=== PATIENT | male | born 1950 | race Two or more races ===

== ENCOUNTER 2020-01-19 14:25 | Inpatient (IN) | payer MEDICARE, MEDICAID ==
[~2020-01-19] VITALS: Ht 175.3 cm; Wt 69.9 kg
[~2020-01-19 14:25] MED LIST: AMOXICILLI250 MG/5 M ORAL; ASPIR 8181 MG ORAL; ATIVAN1 MG ORAL; COLACE100 MG GT; GLUCOPHAGE850 MG ORAL; GLUCOTROL5 MG ORAL; KEPPRA500 MG ORAL; MIRALAX17 G2 ORAL; MULTIVITAMINS1 EAC8 ORAL; NAMENDA XR28 MG GT; NITROSTAT0.4 M1 SL; PROTONIX40 MG ORAL; RESTORIL15 MG ORAL; TERAZOSIN HCL1 MG GT; TRADJENTA5 MG PO; TYLENOL325 MG GT; ZESTRIL10 MG GT; ZOFRAN8 MG GT
[2020-01-19] MEDS ORDERED: PROSCAR5 MG GT (14:36)
[2020-01-19] MEDS ORDERED: HEPARIN SO5000 UNIT2 SUBQ (14:36)
[2020-01-19] MEDS ORDERED: Piperacillin/Tazobactam 3.375 GM in NS 110 ML IVPB ONE (14:45)
[2020-01-19] MEDS ORDERED: Vancomycin 1 GM in NS 275 ML IVPB ONE (14:45)
--- NOTE | 2020-01-19 14:59 | NUR ---
ED Nurse Note: patient brought in [facility] from [facility] c/o cough and congestion x1 week. per ems, confirmed pna cxr done yesterday. patient received in bed; mask applied. upper and lower extremity contractures noted. suprabupic catheter noted; patent and draining well to gravity. gtube noted; flushed, patent and clamped. patient awake and oriented x0; aphasic; lacks purposeful movement; open eyes spontaneously. patient in gown; all safety measures met.
[2020-01-19 15:00] VITALS: BP 100/65
[2020-01-19] MEDS ORDERED: HYDRALAZINE HCL50 MG GT (15:00)
[2020-01-19] MEDS ORDERED: LEVEMIR FL100 UNIT/1 SUBQ (15:00)
[2020-01-19] MEDS ORDERED: KEPPRA100 MG/1 M GT (15:00)
--- NOTE | 2020-01-19 15:00 | NUR ---
ED Nurse Note: iv access established. blood, initial lactic, blood cultures, flu covid 19 and mrsa vre cre swabs collected; sent down to lab. 2nd iv established left upper arm 20g; initiated abx as prescribed. urine collected via hardin; sent down to lab. hardin inserted prior to arrival; patent and draining well to gravity. Addendum: 01/19/20 at 1841 by [facility] ED Nurse Note: iv access established. blood, initial lactic, blood cultures, flu covid 19 and mrsa vre cre swabs collected; sent down to lab. 2nd iv established left upper arm 20g; initiated abx as prescribed. urine collected via suprapubic catheter; sent down to lab. suprapubic inserted prior to arrival; patent and draining well to gravity.
--- NOTE | 2020-01-19 15:05 | NUR ---
ED Nurse Note: imaging at bedside for cxr. droplet precautions observed; pt in isolated room.
[2020-01-19] MEDS ORDERED: JANUVIA50 MG GT (15:07)
[2020-01-19] MEDS ORDERED: FLOMAX0.4 MG GT (15:07)
[2020-01-19] MEDS ORDERED: METOPROLOL TART25 MG GT (15:07)
[2020-01-19] MEDS ORDERED: MIRALAX17 G2 GT (15:07)
--- NOTE | 2020-01-19 15:08 | Emergency Room Report ---
History of Present Illness General Chief Complaint: Upper Respiratory Illness Source: Medical Record Present Illness HPI 69-year-old male history of dementia, seizure disorder, pneumonia presents from custodial facility due to pneumonia. Patient had a chest x-ray yesterday showing right lower lobe pneumonia. Recently treated for the same. No reported fever. Patient unable to provide any history due to baseline altered mental status. Allergies: Coded Allergies: No Known Allergies (Unverified , 04/08/16) COVID-19 Screening Contact w/high risk pt: No Recent Travel to affected area: No Experienced COVID-19 symptoms?: Yes COVID-19 symptoms experienced: Shortness of Breath, Cough, Runny Nose Patient History Reviewed Nursing Documentation: PMH: Agreed; PSxH: Agreed Nursing Documentation-PMH Hx Cardiac Problems: Yes Hx Hypertension: Yes Hx Diabetes: Yes Hx Cancer: No Hx Gastrointestinal Problems: No Hx Neurological Problems: Yes Hx Dementia: Yes Hx Seizures: Yes Hx Epilepsy: Yes Hx Concentration Difficulty: Yes Review of Systems All Other Systems: limited - History limited due to patient's baseline altered mental status Physical Exam Vital Signs Date Time Temp Pulse Resp B/P (MAP) Pulse Ox O2 Delivery O2 Flow Rate FiO2 01/19/20 14:26 98.8 86 20 100/65 (77) 99 Nasal Cannula 2.0 Sp02 EP Interpretation: reviewed, normal General Appearance: no apparent distress, Chronically Ill Head: normocephalic, atraumatic Eyes: bilateral eye PERRL, bilateral eye EOMI ENT: hearing grossly normal, moist mucus membranes Neck: full range of motion, supple Respiratory: lungs clear, normal breath sounds, no rhonchi, no respiratory distress, no retraction, no wheezing Cardiovascular #1: normal peripheral pulses, regular rate, rhythm, no murmur Gastrointestinal: non tender, soft, non-distended, no guarding Neurologic: alert, other - Patient at reported baseline mental status with lower extremity contractures. Does move upper extremities bilaterally, patient not oriented. Skin: normal color, warm/dry Medical Decision Making Diagnostic Impression: Primary Impression: Pneumonia ER Course MDM: Patient presented from custodial facility due to right lower lobe pneumonia. differential diagnosis: Pneumonia, viral syndrome, aspiration, coronavirus infection Clinical course Patient placed on stretcher. On metal mover. After initial history and physical I ordered labs, blood cultures, IV antibiotics, coronavirus and flu testing. Patient given broad-spectrum antibiotics. Due to patient's status living in a convalescent home with cough and shortness of breath and concern for right lower lobe pneumonia will admit to the hospital for further treatment and observation. Laboratory Tests Test 01/19/20 15:00 White Blood Count 8.6 K/UL (4.8-10.8) Red Blood Count 3.36 M/UL (4.70-6.10) L Hemoglobin 10.2 G/DL (14.2-18.0) L Hematocrit 29.5 % (42.0-52.0) L Mean Corpuscular Volume 88 FL (80-99) Mean Corpuscular Hemoglobin 30.3 PG (27.0-31.0) Mean Corpuscular Hemoglobin Concent 34.4 G/DL (32.0-36.0) Red Cell Distribution Width 14.4 % (11.6-14.8) Platelet Count 200 K/UL (150-450) Mean Platelet Volume 9.5 FL (6.5-10.1) Neutrophils (%) (Auto) 67.2 % (45.0-75.0) Lymphocytes (%) (Auto) 21.8 % (20.0-45.0) Monocytes (%) (Auto) 8.3 % (1.0-10.0) Eosinophils (%) (Auto) 1.7 % (0.0-3.0) Basophils (%) (Auto) 1.1 % (0.0-2.0) Sodium Level 132 MMOL/L (136-145) L Potassium Level 4.7 MMOL/L (3.5-5.1) Chloride Level 98 MMOL/L (98-107) Carbon Dioxide Level > 45 MMOL/L (21-32) *H Blood Urea Nitrogen 40 mg/dL (7-18) H Creatinine 0.8 MG/DL (0.55-1.30) Estimated Glomerular Filtration Rate > 60 mL/min (>60) Glucose Level 112 MG/DL (74-106) H Lactic Acid Level 1.10 mmol/L (0.4-2.0) Calcium Level 9.7 MG/DL (8.5-10.1) Total Bilirubin 0.3 MG/DL (0.2-1.0) Aspartate Amino Transferase (AST) 40 U/L (15-37) H Alanine Aminotransferase (ALT) 65 U/L (12-78) Alkaline Phosphatase 165 U/L (46-116) H Total Creatine Kinase 127 U/L (26-308) Creatine Kinase MB 2.6 NG/ML (0.0-3.6) Creatine Kinase MB Relative Index 2.0 Troponin I 0.000 ng/mL (0.000-0.056) Total Protein 8.7 G/DL (6.4-8.2) H Albumin 3.2 G/DL (3.4-5.0) L Globulin 5.5 g/dL Albumin/Globulin Ratio 0.6 (1.0-2.7) L Urine Legionella Antigen Pending Mycoplasma pneumoniae IgM Ab Titer Pending Microbiology Date/Time Source Procedure Growth Status 01/19/20 15:00 Nasal Nares - Final Complete 01/19/20 15:00 Nasal Nares - Final Complete EKG Diagnostic Results EP Interpretation: Yes Rate: normal Rhythm: NSR ST Segments: no acute changes Last Vital Signs Date Time Temp Pulse Resp B/P (MAP) Pulse Ox O2 Delivery O2 Flow Rate FiO2 01/19/20 14:26 98.8 86 20 100/65 (77) 99 Nasal Cannula 2.0 Status: unchanged Disposition: ADMITTED INPATIENT Condition: Serious Valdemar Farrar M.D. Jan 19, 2020 15:08
--- NOTE | 2020-01-19 15:36 | Diagnostic Imaging Report ---
Indication: Shortness of breath Technique: One view of the chest Comparison: none Findings: Nodular and reticular interstitial opacities are seen at the right lung base. No dense consolidation. The remainder of the lungs and pleural spaces are clear. There is a surgical clip in the aortopulmonary window Impression: Nodular and reticular right basilar opacities. Nonspecific, could indicate acute inflammation versus chronic postinflammatory changes, among many other possibilities.
[2020-01-19 15:46] LABS: BASOPHILS % (AUTO) 1.1 % (0.0-2.0); EOSINOPHILS % (AUTO) 1.7 % (0.0-3.0); HEMATOCRIT 29.5 % (42.0-52.0); HEMOGLOBIN 10.2 G/DL (14.2-18.0); LYMPHOCYTES % (AUTO) 21.8 % (20.0-45.0); MEAN CORPUSCULAR VOLUME 88 FL (80-99); MONOCYTES % (AUTO) 8.3 % (1.0-10.0); NEUTROPHILS % (AUTO) 67.2 % (45.0-75.0); PLATELET COUNT 200 K/UL (150-450); RED BLOOD COUNT 3.36 M/UL (4.70-6.10); RED CELL DISTRIBUTION WIDTH 14.4 % (11.6-14.8); WHITE BLOOD COUNT 8.6 K/UL (4.8-10.8)
[2020-01-19 17:15] LABS: ALANINE AMINOTRANSFERASE 65 U/L (12-78); ALBUMIN 3.2 G/DL (3.4-5.0); ALBUMIN/GLOBULIN RATIO 0.6 (1.0-2.7); ALKALINE PHOSPHATASE 165 U/L (46-116); ASPARTATE AMINO TRANSFERASE 40 U/L (15-37); BILIRUBIN,TOTAL 0.3 MG/DL (0.2-1.0); BLOOD UREA NITROGEN 40 mg/dL (7-18); CALCIUM 9.7 MG/DL (8.5-10.1); CHLORIDE 98 MMOL/L (98-107); CKMB 2.6 NG/ML (0.0-3.6); CREATINE KINASE 127 U/L (26-308); CREATININE 0.8 MG/DL (0.55-1.30); POTASSIUM 4.7 MMOL/L (3.5-5.1); SODIUM 132 MMOL/L (136-145)
--- NOTE | 2020-01-19 17:20 | NUR ---
ED Nurse Note: pt presented with bowel movement. provided perineal care; anchored suprapubic catheter; changed linens. repositioned patient for comfort. patient presents with sacral and left heel pressure wound; wound photos taken and uploaded. pt presents with no acute distress. will continue to monitor.
[2020-01-19 17:22] LABS: CARBON DIOXIDE > 45 MMOL/L (21-32)
[2020-01-19 19:30] VITALS: BP 103/62
--- NOTE | 2020-01-19 19:30 | NUR ---
ED Nurse Note: patient sleeping in bed with no acute distress. continues to open eyes spontaneously without purposeful movement; retracts to light pain. repositioned for comfort. belongings list completed.
--- NOTE | 2020-01-19 19:54 | NUR ---
ED Nurse Note: REPORT GIVEN TO CORBY MEJÍA. PATIENT TO BE ADMITTED TO SDU 241-1 UNDER THE CARE OF SAGAR KLEIN.
--- NOTE | 2020-01-19 19:56 | NUR ---
ED Nurse Note: NOTIFIED RT OF SPUTUM ORDER; WILL BE DONE ONCE PATIENT IS TRANSFERRED TO UNIT. ENDORSED SPUTUM COLLECTION TO ALFONZO TAVAREZ.
[2020-01-19] MEDS ORDERED: cefTRIAXone 1 GM in D5W 55 ML IV SCH (20:00)
[2020-01-19] MEDS ORDERED: Azithromycin 500 MG in D5W 275 ML IV SCH (20:00)
--- NOTE | 2020-01-19 20:10 | NUR ---
NURSE NOTES: Received report from CORBY Anne.
--- NOTE | 2020-01-19 20:15 | NUR ---
NURSE NOTES: No room is unavailable at this time. Waiting for the rooms discharged occupant to be picked up by ambulance and for room to be cleaned.
[2020-01-19] MEDS: NovoLOG Insulin Flexpen SUBQ SCH (21:00)
--- NOTE | 2020-01-19 22:42 | NUR ---
ED Nurse Note: PT PRESENTED WITH BOWEL MOVEMENT; SOFT BROWN STOOL. CHANGED LINENS AND REPOSITIONED FOR COMFORT. PATIENT ATTACHED TO MONITOR; VSS. SPO2 98% ON ROOM AIR. SAFETY MEASURES MET. WILL CONTINUE TO MONITOR.
[2020-01-19 22:49] VITALS: BP 114/71
--- NOTE | 2020-01-19 23:15 | Consultation ---
DATE OF CONSULTATION: 01/19/2020 PULMONARY CONSULTATION HISTORY OF PRESENT ILLNESS: This is a 69-year-old male with a history of dementia, seizure disorder who was [facility] in [facility] with pneumonia. The patient apparently underwent a chest x-ray recently which showed right lung pneumonia. He has received treatment with no benefit. The patient was seen and worked up in the emergency room, found to have hemoglobin 10.2 and a bicarb of more than 45. Sodium 132. Nares swab was initially found to be negative with influenza A and B. The patient was found to be hypoxic with O2 saturation 99% on 2 liters of oxygen. Currently, the patient is seen in the emergency room. PAST MEDICAL HISTORY: Notable for hypertension, diabetes mellitus, previous CVA, dementia, seizure disorder. SOCIAL HISTORY: retirement resident. PHYSICAL EXAMINATION: GENERAL: Reveals a 69-year-old male. VITAL SIGNS: Blood pressure 100/60, heart rate 84, respiratory rate 20, afebrile, O2 saturation 99% on 2 L of oxygen. HEENT: Unremarkable. CHEST: Decreased breath sounds bilaterally with normal heart sounds. ABDOMEN: Soft. LABORATORY DATA: Laboratory testing as discussed above. Imaging studies unremarkable except for right lung infiltrate. IMPRESSION: 1. Right lung pneumonia. 2. retirement resident. DISCUSSION: The patient at this time needed to be admitted. I see documentation that the ER physician may discharge the patient. We will initiate antibiotics once the patient is admitted. Miguel Roche M.D. DR: Arnold JOB#: [id number] CC:
[2020-01-20] VITALS (7 sets, daily range): BP systolic 123–153; BP diastolic 68–108
--- NOTE | 2020-01-20 00:50 | NUR ---
ED Nurse Note: patient sleeping in bed with no acute distress. respirations even and unlabored. vss.
--- NOTE | 2020-01-20 01:30 | NUR ---
TRANSFER TO FLOOR: Patient transferred to SDU 205-2 as ordered, per SAGAR KLEIN. Report given to ALFONZO TAVAREZ. PATIENT STABLE FOR TRANSFER. PATIENT TRANSPORTED TO FLOOR VIA GURNEY WITH CEM AND RN. BELONGINGS LIST AND ADMISSION PACKET SENT WITH PATIENT. DROPLET PRECAUTIONS OBSERVED DURING TRANSPORT.
[2020-01-20] MEDS: Piperacillin/Tazobactam 3.375 GM in NS 110 ML IVPB SCH ×5 (02:33→21:40)
[2020-01-20] MEDS: NS w/KCl 20mEq 1000ml 1,000 ML IV SCH ×3 (02:34→19:45)
[2020-01-20] MEDS: Vancomycin 1gm/D5W 275ml IVPB SCH ×4 (03:00→15:58)
--- NOTE | 2020-01-20 04:00 | NUR ---
NURSE NOTES: Vancomycin not given because medication was not obtained until after scheduled dose. When medication was obtained it was too close to next antibiotic.
[2020-01-20] MEDS: Heparin 5000 units/ml inj SUBQ SCH ×3 (04:50→21:45)
[2020-01-20 05:54] LABS: BASOPHILS % (AUTO) 0.5 % (0.0-2.0); EOSINOPHILS % (AUTO) 0.1 % (0.0-3.0); HEMATOCRIT 32.9 % (42.0-52.0); HEMOGLOBIN 11.4 G/DL (14.2-18.0); LYMPHOCYTES % (AUTO) 9.6 % (20.0-45.0); MEAN CORPUSCULAR VOLUME 85 FL (80-99); NEUTROPHILS % (AUTO) 80.8 % (45.0-75.0); PLATELET COUNT 208 K/UL (150-450); RED BLOOD COUNT 3.84 M/UL (4.70-6.10); RED CELL DISTRIBUTION WIDTH 12.9 % (11.6-14.8); WHITE BLOOD COUNT 11.9 K/UL (4.8-10.8)
[2020-01-20 06:10] LABS: ANION GAP 12 mmol/L (5-15); BLOOD UREA NITROGEN 46 mg/dL (7-18); CALCIUM 10.2 MG/DL (8.5-10.1); CARBON DIOXIDE 25 MMOL/L (21-32); CHLORIDE 100 MMOL/L (98-107); CREATININE 0.9 MG/DL (0.55-1.30); POTASSIUM 4.1 MMOL/L (3.5-5.1); SODIUM 137 MMOL/L (136-145)
[2020-01-20] MEDS: NovoLOG Insulin Flexpen SUBQ SCH ×3 (06:30→18:56)
--- NOTE | 2020-01-20 07:30 | NUR ---
NURSE NOTES: Received report from Ky Khan RN. Pt awake, eyes open and tracking when someone looks and non verbal. With Oxygen via NC @ 2lpm. With Left hand 18 gauge and Left upper arm 20 gauge IV lines intact and infusing well, asymptomatic. With PEG tube intact. Bed siderails are up and stable. Head of bed elevated for comfortable position. continue to monitor pt.
--- NOTE | 2020-01-20 08:49 | Consultation ---
Consult Note Consult Note HPI: 69yo gentleman with PMH below presents from [facility] for cough and congestion for one week. Pt unable to provide history. Pt with healed pressure ulcers. Suprapubic catheter that was changed 12/28. G tube. Pt is currently not coughing. Diarrhea witnessed by nurse ROS: per above PMH: Psych disorder COPD BPH DM Seizure disorder dementia HTN G tube suprapubic catheter SHx: h/o cigarette use. NH resident. FHX: noncontributory VS: reviewed Gen: NAD HEENT: anicteric sclera CV: RRR. no rubs or gallop Resp: coarse. congested. regular rhtyhm. equal chest rise Abd: G tube. soft. suprapubic catheter site without drainage Ext: no LE edema. no joint deformity MSK: sarcopenia Neuro: eyes open. does not follow commands. does not answer questions. Labs: reviewed Imaging: reviewed Assessment: Afebrile No leukocytosis Mild transaminitis PNA r/o probable COVID flu swab neg CXR: Nodular and reticular right basilar opacities. Nonspecific, could indicate acute inflammation versus chronic postinflammatory changes, among many other possibilities. r/o bacteremia BCx: P Multiple pressure injuries but healing, no evidence of infection QTc 435 Psych disorder COPD BPH DM Seizure disorder dementia HTN GERD anemia G tube suprapubic catheter, SP exchange 12/28 Plan: zosyn and vanc #1 SP ceftriaxone and azithromycin #1 f/u urine legionella f/u mycoplasma IgM f/u COVID test f/u sputum cx f/u MRSA screen f/u BCx COVID isolation monitor temp and CBC monitor resp status will not obtain urine specimen at this time. suprapubic samples usually are contaminated. Bridget Hurley RN, MD Jan 20, 2020 08:49
--- NOTE | 2020-01-20 10:52 | Pulmonology Progress Note ---
Assessment/Plan Assessment/Plan IMPRESSION: 1. Right lung pneumonia. 2. [facility] resident. DISCUSSION: Continue abx O2 Pulmonary hygiene Will follow Miguel Roche M.D. Subjective Interval Events: None new Constitutional: Reports: no symptoms HEENT: Repors: no symptoms Respiratory: Reports: no symptoms Cardiovascular: Reports: no symptoms Allergies: Coded Allergies: No Known Allergies (Unverified , 04/08/16) Objective Last 24 Hour Vital Signs Date Time Temp Pulse Resp B/P (MAP) Pulse Ox O2 Delivery O2 Flow Rate FiO2 01/20/20 08:00 Nasal Cannula 2.0 01/20/20 08:00 98.2 90 16 149/107 (121) 100 01/20/20 07:50 Room Air 2.0 01/20/20 04:00 98.1 109 16 138/77 (97) 100 01/20/20 03:32 115 01/20/20 02:02 110 01/20/20 01:45 98.1 116 20 123/93 (103) 93 01/20/20 01:30 98.8 79 14 127/108 97 Room Air 2.0 01/20/20 00:50 98.8 79 14 127/108 97 Room Air 01/19/20 22:49 98.8 84 14 114/71 98 Room Air 01/19/20 19:30 98.8 83 22 103/62 98 Nasal Cannula 2.0 01/19/20 15:00 98.8 86 20 100/65 99 Nasal Cannula 2.0 01/19/20 15:00 86 20 Nasal Cannula 2.0 01/19/20 14:26 98.8 86 20 100/65 (77) 99 Nasal Cannula 2.0 Intake and Output 01/19/20 01/20/20 19:00 07:00 Intake Total 110 ml Output Total 350 ml Balance -240 ml Intake IV Total 110 ml Output Urine Total 350 ml # Voids 1 # Bowel Movements 1 General Appearance: no acute distress HEENT: normocephalic Respiratory/Chest: chest wall non-tender, lungs clear Cardiovascular: normal peripheral pulses Abdomen: normal bowel sounds Microbiology Date/Time Source Procedure Growth Status 01/19/20 15:00 Nasal Nares - Final Complete 01/19/20 15:00 Nasal Nares - Final Complete 01/20/20 09:10 Rectum Received Laboratory Tests 01/19/20 15:00: White Blood Count 8.6, Red Blood Count 3.36L, Hemoglobin 10.2L, Hematocrit 29.5L , Mean Corpuscular Volume 88, Mean Corpuscular Hemoglobin 30.3, Mean Corpuscular Hemoglobin Concent 34.4, Red Cell Distribution Width 14.4, Platelet Count 200, Mean Platelet Volume 9.5, Neutrophils (%) (Auto) 67.2, Lymphocytes (% ) (Auto) 21.8, Monocytes (%) (Auto) 8.3, Eosinophils (%) (Auto) 1.7, Basophils ( %) (Auto) 1.1, Sodium Level 132L, Potassium Level 4.7, Chloride Level 98, Carbon Dioxide Level > 45*H, Blood Urea Nitrogen 40H, Creatinine 0.8, Estimat Glomerular Filtration Rate > 60, Glucose Level 112H, Lactic Acid Level 1.10, Calcium Level 9.7, Total Bilirubin 0.3, Aspartate Amino Transf (AST/SGOT) 40H, Alanine Aminotransferase (ALT/SGPT) 65, Alkaline Phosphatase 165H, Total Creatine Kinase 127, Creatine Kinase MB 2.6, Creatine Kinase MB Relative Index 2.0, Troponin I 0.000, Total Protein 8.7H, Albumin 3.2L, Globulin 5.5, Albumin/ Globulin Ratio 0.6L, Urine Legionella Antigen [Pending], Mycoplasma pneumoniae IgM Ab Titer [Pending] 01/20/20 04:49: White Blood Count 11.9H, Red Blood Count 3.84L, Hemoglobin 11.4L, Hematocrit 32.9L, Mean Corpuscular Volume 85, Mean Corpuscular Hemoglobin 29.7, Mean Corpuscular Hemoglobin Concent 34.8, Red Cell Distribution Width 12.9, Platelet Count 208, Mean Platelet Volume 7.3, Neutrophils (%) (Auto) 80.8H, Lymphocytes ( %) (Auto) 9.6L, Monocytes (%) (Auto) 9.0, Eosinophils (%) (Auto) 0.1, Basophils (%) (Auto) 0.5, Sodium Level 137, Potassium Level 4.1, Chloride Level 100, Carbon Dioxide Level 25, Blood Urea Nitrogen 46H, Creatinine 0.9, Estimat Glomerular Filtration Rate > 60, Glucose Level 154H, Calcium Level 10.2H, Anion Gap 12 Current Medications Medications (Trade) Dose Ordered Sig/Angel Route PRN Reason Start Time Stop Time Status Last Admin Dose Admin Acetaminophen (Tylenol) 650 mg Q4H PRN ORAL Mild Pain (Pain Scale 1-3) 01/19/20 19:00 02/18/20 18:59 Dextrose (Dextrose 50%) 25 ml Q30M PRN IV Hypoglycemia 01/19/20 19:00 04/18/20 18:59 Dextrose (Dextrose 50%) 50 ml Q30M PRN IV Hypoglycemia 01/19/20 19:00 04/18/20 18:59 Heparin Sodium (Porcine) (Heparin 5000 units/ml) 5,000 units EVERY 12 HOURS SUBQ 01/19/20 21:00 03/04/20 20:59 01/20/20 09:13 Insulin Aspart (NovoLOG) BEFORE MEALS AND HS SUBQ 01/19/20 21:00 04/18/20 20:59 Piperacillin Sod/ Tazobactam Sod 3.375 gm/Sodium Chloride 110 ml @ 220 mls/hr Q8HR IVPB 01/19/20 22:00 01/26/20 21:59 01/20/20 05:48 Potassium Chloride/Sodium Chloride 1,000 ml @ 50 mls/hr Q20H IV 01/19/20 21:00 02/18/20 20:59 01/20/20 02:34 Vancomycin HCl (Vanco rx to dose) 1 ea DAILY PRN MISC Per rx protocol 01/19/20 18:30 02/18/20 18:29 Vancomycin HCl 1 gm/Dextrose 275 ml @ 183.708 mls/hr Q12H IVPB 01/20/20 03:00 01/25/20 02:59 Miguel Roche MD Jan 20, 2020 10:52
--- NOTE | 2020-01-20 13:45 | NUR ---
CASE MANAGEMENT:REVIEW 69 YR OLD MALE BIBA FROM [facility] IN [place] CC: COUGH AND CONGESTION. CXR(+) PNEUMONIA SI: PNEUMONIA. R/O COVID 19 98.7 86 20 100/65 99% ON 2L/NC CO2>45 IS: IV VANCOMYCIN IV ZOSYN CHEST XRAY BLOOD CX INFLUENZA A&B COVID 19 : TO TELEMETRY UNIT DCP: FROM [facility]
--- NOTE | 2020-01-20 15:02 | NUR ---
NURSE NOTES:WOUND CARE NOTES:Pt presented on admission with contractures, multiple areas of hyperpigmentation from previous pressure injuries. Hyperpigmentation noted to Sacrum, R and L trochanteric, dorso/lateral R foot and distal/lateral R foot and R heel. Both heels are soft but blanchable. Scrotum and perineum are erythematous but dry . An area of erythema noted to medial upper R thigh. Tx.Plan:Apply Moisture Barrier Paste to sacrum. Cover with Optifoam drsg. Change every 3 days and prn. Apply Moisture Barrier Paste to scrotum, Bilat groin and both ischial tuberosities with each incontinence care. Apply Cavilon Skin Barrier to R and L trochanteric areas,Both heels and lateral aspects of both feet. Cover each area with Optifoam drsg.Change every 7 days and prn. Apply Cavilon Skin Barrier to both heels. Cover each heel with Optifoam drsg. Change every 7 days and prn. Reposition at least every 2hours or as tolerated. Place pillow between knees. Off-load heels with pillow. APM/Paty Mattress overlay.
--- NOTE | 2020-01-20 15:54 | Consultation ---
History of Present Illness General Date patient seen: Jan 20, 2020 Chief Complaint: Upper Respiratory Illness Present Illness HPI This is a 69-year-old male with multi-medical comorbidities who is a half-way resident care dependent admitted for pneumonia. Patient with history of seizures, noted contractures, decubitus ulcers, abnormal labs. Upon admission placed on covid precautions. Given above surgery called to evaluate and assist with care. Patient seen, patient evaluated, chart reviewed. Patient unable to provide history or comply with examination. Labs reviewed. Imaging reviewed Allergies: Coded Allergies: No Known Allergies (Unverified , 04/08/16) Medication History Scheduled Amoxicillin* (Amoxicillin*), 250 MG ORAL EVERY 8 HOURS, (Reported) Aspirin* (Aspir 81*), 81 MG ORAL DAILY, (Reported) Docusate Sodium* (Colace*), 100 MG GT TWICE A DAY, (Reported) Finasteride* (Proscar*), 5 MG GT DAILY, (Reported) Glipizide* (Glucotrol*), 2.5 MG ORAL ACBREAKFAST, (Reported) Heparin Sod (Porcine) (Heparin Sodium*), 5,000 UNITS SUBQ EVERY 12 HOURS, ( Reported) Hydralazine Hcl* (Hydralazine Hcl*), 50 MG GT EVERY 8 HOURS, (Reported) Insulin Detemir (Levemir Flexpen), 8 SUBQ DAILY, (Reported) Levetiracetam (Keppra), 500 MG ORAL Q12HR, (Reported) Levetiracetam (Keppra), 500 MG GT Q12HR, (Reported) Linagliptin (Tradjenta), 5 MG PO DAILY, (Reported) Lisinopril* (Zestril*), 10 MG GT DAILY, (Reported) Lorazepam* (Ativan*), 1 MG ORAL Q6HR, (Reported) Memantine Hcl (Namenda Xr), 10 MG GT BEDTIME, (Reported) Metformin Hcl* (Glucophage*), 1,000 MG ORAL TWICE A DAY, (Reported) Metoprolol Tartrate* (Metoprolol Tartrate*), 12.5 MG GT EVERY 12 HOURS, ( Reported) Multivitamin With Minerals (Multivitamins With Minerals*), 1 TAB ORAL DAILY, ( Reported) Pantoprazole* (Protonix*), 40 MG ORAL BEFORE BREAKFAST, (Reported) Polyethylene Glycol 3350* (Miralax*), 17 GM ORAL DAILY, (Reported) Polyethylene Glycol 3350* (Miralax*), 17 GM GT DAILY, (Reported) Sitagliptin (Januvia), 50 MG GT DAILY, (Reported) Tamsulosin HCl (Flomax), 0.4 MG GT DAILY, (Reported) Terazosin Hcl* (Hytrin*), 1 MG GT BEDTIME, (Reported) Scheduled PRN Acetaminophen (Tylenol), 650 MG GT Q4HR PRN for Fever/Headache/Mild Pain, ( Reported) Nitroglycerin (Nitrostat), 0.4 MG SL Q5M X3 DOSES PRN for AD, (Reported) Ondansetron Hcl* (Zofran*), 4 MG GT Q6H PRN for Nausea & Vomiting, (Reported) Temazepam* (Restoril*), 15 MG ORAL BEDTIME PRN for Insomnia, (Reported) Patient History Limited by: medical condition History Provided By: Medical Record, PMD Healthcare decision maker N Resuscitation status Full Code Advanced Directive on File Past Medical/Surgical History Past Medical/Surgical History: (1) Mandibular pain (2) Cellulitis (3) COPD (chronic obstructive pulmonary disease) (4) Anemia (5) Diabetes (6) Encephalopathy (7) HTN (hypertension) (8) BPH (benign prostatic hyperplasia) (9) Pneumonia Review of Systems ROS Narrative unable to obtain given medical condition Physical Exam General Appearance: no apparent distress Lines, tubes and drains: peripheral HEENT: mucous membranes moist Neck: normal inspection Respiratory/Chest: no respiratory distress, no accessory muscle use, decreased breath sounds Cardiovascular/Chest: normal rate Abdomen: soft, no organomegaly, no mass, other Extremities: normal inspection Skin Exam: warm/dry Neurologic: unresponsiveness Last 24 Hour Vital Signs Date Time Temp Pulse Resp B/P (MAP) Pulse Ox O2 Delivery O2 Flow Rate FiO2 01/20/20 12:00 Nasal Cannula 2.0 01/20/20 12:00 99.7 102 16 147/85 (105) 100 01/20/20 11:51 103 01/20/20 08:00 Nasal Cannula 2.0 01/20/20 08:00 98.2 90 16 149/107 (121) 100 01/20/20 07:50 Room Air 2.0 4/10/20 07:43 105 01/20/20 04:00 98.1 109 16 138/77 (97) 100 01/20/20 03:32 115 01/20/20 02:02 110 01/20/20 01:45 98.1 116 20 123/93 (103) 93 01/20/20 01:30 98.8 79 14 127/108 97 Room Air 2.0 01/20/20 00:50 98.8 79 14 127/108 97 Room Air 01/19/20 22:49 98.8 84 14 114/71 98 Room Air 01/19/20 19:30 98.8 83 22 103/62 98 Nasal Cannula 2.0 Intake and Output 01/19/20 01/20/20 19:00 07:00 Intake Total 110 ml Output Total 350 ml Balance -240 ml Intake IV Total 110 ml Output Urine Total 350 ml # Voids 1 # Bowel Movements 1 Laboratory Tests Test 01/20/20 04:49 White Blood Count 11.9 K/UL (4.8-10.8) H Red Blood Count 3.84 M/UL (4.70-6.10) L Hemoglobin 11.4 G/DL (14.2-18.0) L Hematocrit 32.9 % (42.0-52.0) L Mean Corpuscular Volume 85 FL (80-99) Mean Corpuscular Hemoglobin 29.7 PG (27.0-31.0) Mean Corpuscular Hemoglobin Concent 34.8 G/DL (32.0-36.0) Red Cell Distribution Width 12.9 % (11.6-14.8) Platelet Count 208 K/UL (150-450) Mean Platelet Volume 7.3 FL (6.5-10.1) Neutrophils (%) (Auto) 80.8 % (45.0-75.0) H Lymphocytes (%) (Auto) 9.6 % (20.0-45.0) L Monocytes (%) (Auto) 9.0 % (1.0-10.0) Eosinophils (%) (Auto) 0.1 % (0.0-3.0) Basophils (%) (Auto) 0.5 % (0.0-2.0) Sodium Level 137 MMOL/L (136-145) Potassium Level 4.1 MMOL/L (3.5-5.1) Chloride Level 100 MMOL/L (98-107) Carbon Dioxide Level 25 MMOL/L (21-32) Anion Gap 12 mmol/L (5-15) Blood Urea Nitrogen 46 mg/dL (7-18) H Creatinine 0.9 MG/DL (0.55-1.30) Estimat Glomerular Filtration Rate > 60 mL/min (>60) Glucose Level 154 MG/DL (74-106) H Calcium Level 10.2 MG/DL (8.5-10.1) H Microbiology Date/Time Source Procedure Growth Status 01/20/20 09:10 Rectum Received Height (Feet): 5 Height (Inches): 9.00 Weight (Pounds): 160 Medications Current Medications Medications (Trade) Dose Ordered Sig/Angel Route PRN Reason Start Time Stop Time Status Last Admin Dose Admin Acetaminophen (Tylenol) 650 mg Q4H PRN ORAL Mild Pain (Pain Scale 1-3) 01/19/20 19:00 02/18/20 18:59 Dextrose (Dextrose 50%) 25 ml Q30M PRN IV Hypoglycemia 01/19/20 19:00 04/18/20 18:59 Dextrose (Dextrose 50%) 50 ml Q30M PRN IV Hypoglycemia 01/19/20 19:00 04/18/20 18:59 Heparin Sodium (Porcine) (Heparin 5000 units/ml) 5,000 units EVERY 12 HOURS SUBQ 01/19/20 21:00 03/04/20 20:59 01/20/20 09:13 Insulin Aspart (NovoLOG) EVERY 6 HOURS SUBQ 01/20/20 12:00 04/18/20 20:59 01/20/20 12:55 Memantine (Namenda) 5 mg BID ORAL 01/20/20 18:00 02/19/20 17:59 Piperacillin Sod/ Tazobactam Sod 3.375 gm/Sodium Chloride 110 ml @ 220 mls/hr Q8HR IVPB 01/19/20 22:00 01/26/20 21:59 01/20/20 13:46 Potassium Chloride/Sodium Chloride 1,000 ml @ 50 mls/hr Q20H IV 01/19/20 21:00 02/18/20 20:59 01/20/20 02:34 Vancomycin HCl (Vanco rx to dose) 1 ea DAILY PRN MISC Per rx protocol 01/19/20 18:30 02/18/20 18:29 Vancomycin HCl 1 gm/Dextrose 275 ml @ 183.708 mls/hr Q12H IVPB 01/20/20 03:00 01/25/20 02:59 Assessment/Plan Problem List: (1) Decubitus skin ulcer Assessment & Plan: Patient presented on admission with contractures, multiple areas of hyperpigmentation from previous pressure injuries. Hyperpigmentation noted to Sacrum, R and L trochanteric, dorso/lateral R foot and distal/lateral R foot and R heel. Both heels are soft but blanchable. Scrotum and perineum are erythematous but dry An area of erythema noted to medial upper R thigh. Tx.Plan: Apply Moisture Barrier Paste to sacrum. Cover with Optifoam drsg. Change every 3 days and prn. Apply Moisture Barrier Paste to scrotum, Bilat groin and both ischial tuberosities with each incontinence care. Apply Cavilon Skin Barrier to R and L trochanteric areas,Both heels and lateral aspects of both feet. Cover each area with Optifoam drsg.Change every 7 days and prn. Apply Cavilon Skin Barrier to both heels. Cover each heel with Optifoam drsg. Change every 7 days and prn. Reposition at least every 2hours or as tolerated. Place pillow between knees. Off-load heels with pillow. APM/Paty Mattress overlay. Nutritional optimization ICD Codes: L89.90 - Pressure ulcer of unspecified site, unspecified stage SNOMED: 943186495 (2) Malnutrition ICD Codes: E46 - Unspecified protein-calorie malnutrition SNOMED: 58826634 (3) Pneumonia ICD Codes: J18.9 - Pneumonia, unspecified organism SNOMED: 344654460 (4) COPD (chronic obstructive pulmonary disease) ICD Codes: J44.9 - Chronic obstructive pulmonary disease, unspecified SNOMED: 56219855 (5) Anemia ICD Codes: D64.9 - Anemia, unspecified SNOMED: 416292175 (6) Cellulitis Assessment & Plan: perirectal cellulitis from incontinence incontinence associated dermatitis care instructions given will monitor ICD Codes: L03.90 - Cellulitis, unspecified SNOMED: 884753524 (7) Diabetes ICD Codes: E11.9 - Type 2 diabetes mellitus without complications SNOMED: 73765312 (8) Encephalopathy ICD Codes: G93.40 - Encephalopathy, unspecified SNOMED: 02114143, 719592437 (9) HTN (hypertension) ICD Codes: I10 - Essential (primary) hypertension SNOMED: 02168332 (10) BPH (benign prostatic hyperplasia) ICD Codes: N40.0 - Enlarged prostate without lower urinary tract symptoms SNOMED: 108946318, 131783232 (11) Mandibular pain ICD Codes: R68.84 - Jaw pain SNOMED: 805536387 Christiano Castelan Jan 20, 2020 15:54
--- NOTE | 2020-01-20 16:15 | History and Physical Report ---
DATE OF ADMISSION: 01/19/2020 DATE AND TIME SEEN: 01/20/2020, approximate time is 8 a.m. CONSULTANTS: 1. Scooter Tang M.D. 2. Miguel Roche M.D. 3. Christiano Castelan M.D. 4. Letty Mcgowan M.D. CHIEF COMPLAINT: Cough, congestion, right basilar pneumonia, sacral decubitus. 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 Currently O2, NC, sleeping in bed, not talking much. PAST MEDICAL HISTORY: Includes cough, congestion, right basilar opacity, sacral decubitus, pneumonia, sepsis, hypertension, diabetes, seizure, anemia. PAST SURGICAL HISTORY: G-tube. MEDICATIONS: Vancomycin, Zosyn, potassium, heparin, insulin, azithromycin, ceftriaxone. ALLERGIES: Denies. SOCIAL HISTORY: Unable to obtain secondary to patient's condition. PHYSICAL EXAMINATION: GENERAL: Confused in bed, O2 NC, not talking much. HEENT: Normocephalic, atraumatic. NECK: Trachea midline. CARDIOVASCULAR: No peripheral edema. PULMONARY: O2, NC. Breathing comfortably. ABDOMEN: No apparent wounds noted. EXTREMITIES: No cyanosis or clubbing. LABORATORY AND DIAGNOSTIC DATA: Labs at this time show white count 11.9, hemoglobin and hematocrit 11/32, otherwise CBC is normal. BMP shows BUN 46, glucose 154, albumin 3.2. ASSESSMENT: 1. Cough. 2. Congestion. 3. Right basilar pneumonia. 4. Sacral decubitus. 5. Sepsis. 6. COVID pending. 7. Malnutrition. 8. Diabetes. 9. Hypertension. 10. Seizure. 11. Anemia. PLAN: 1. O2, pulmonary treatment. 2. Antibiotic per Infectious Disease. 3. Blood pressure, blood sugar, pain control. 4. PT, OT, dietary follow up. 5. Wound care. Tone Dietz D.O. DR: NILESH JOB#: [id number] CC:
--- NOTE | 2020-01-20 16:31 | NUR ---
NURSE NOTES: Spoke with Dr. Roche via telephone. Telemetry status order obtained. Charge nurse/Cata made aware.
[2020-01-20] MEDS ORDERED: Memantine 5 MG TAB ORAL SCH (18:00)
--- NOTE | 2020-01-20 19:30 | NUR ---
NURSE NOTES: RECEIVED REPORT FROM CORBY BURGESS. PATIENT ASLEEP IN BED, AROUSABLE. A, OX0, NON-VERBAL. NO S/SX OF PAIN OR DISCOMFORT. BREATHING EVEN AND UNLABORED ON 2L NC, NO S/SX OF DISTRESS. IV SITES: LEFT HAND 18G ASYMPTOMATIC, PATENT AND INTACT; MARLEN 20G ASYMPTOMATIC, PATENT AND INTACT WITH NS WITH 20 MEQ KCL RUNNING AT 50 ML/HR. G-TUBE PATENT. PATIENT SUPINE WITH BILATERAL HEELS ELEVATED. BED LOCKED AND IN LOWEST POSITION WITH SIDERAILS UP X 3. CALL LIGHT WITHIN REACH. CONTACT AND DROPLET ISOLATION IMPLEMENTED. FALL, ASPIRATION PRECAUTIONS IMPLEMENTED. PATIENT ENDORSED WITHOUT PADDED SIDERAILS, BUT SHOULD BE ON SEIZURE PRECAUTIONS. WILL CONTINUE TO MONITOR FOR ANY CHANGES.
--- NOTE | 2020-01-20 19:30 | NUR ---
TRANSFER TO FLOOR: Patient transferred to Telemetry status room 205-2, per Dr. Roche and Dr. Dietz. Report given to Carmina Bowens RN. No Belongings reviewed. Medications given to Carmina Bowens RN. Remains on nasal cannula at 3LPM.
--- NOTE | 2020-01-20 20:00 | NUR ---
NURSE NOTES: SIDERAILS PADDED, CONNECTED G-TUBE FEEDING AT PRESCRIBED RATE.
[2020-01-20] MEDS ORDERED: Memantine 5 MG TAB GT SCH (21:00)
[2020-01-20] MEDS: Memantine 5 MG TAB GT SCH (21:37)
--- NOTE | 2020-01-20 23:30 | Consultation ---
DATE OF CONSULTATION: 01/20/2020 CONSULTING PHYSICIAN: Letty Mcgowan M.D. HISTORY OF PRESENT ILLNESS: This is a 69-year-old male patient. Patient came in because he has cellulitis, COPD, anemia, diabetes, hypertension, BPH, and pneumonia. So, this patient was admitted to the hospital for some reasons, but apparently this patient came in due to pneumonia. He was ruled out COVID-19 and was ruled out pneumonia. He is a very poor historian. He has altered mental status, very confused, disorganized, mood labile. MEDICAL HISTORY: Patient has a history of respiratory illness and he has pneumonia, seizure disorder. ALLERGIES: He has got no known drug allergies. MEDICATIONS: Psychotropic medications on admission. Patient is currently on Namenda. SUBSTANCE USE HISTORY: Denies. FAMILY PSYCHIATRIC HISTORY: Denies. PAIN ASSESSMENT: . DEVELOPMENTAL PROBLEMS: Denies. SOCIAL HISTORY: Patient is currently living at [facility]. Financially supported by [employer] and Medicare. No legal problems. PSYCHIATRIC HISTORY: He has history of multiple psychiatric 01:43 even at shelter. MENTAL STATUS EXAMINATION: This is a 69-year-old male patient. His appearance is disheveled. Attitude, irritable and agitated. Affect is labile. Intellect poor. He cannot do serial 7's or spell world backwards. Orientation x2, . Speech is nonverbal. Thought process, disorganized and illogical. Thought content, no auditory hallucinations or paranoid delusions. Insight and judgment is poor. DIAGNOSIS: Major depressive disorder, mild, recurrent with psychotic features, rule out dementia with psychosis. PLAN: Provided him with 20 minutes of insight-oriented psychotherapy to help bring this patient mood lability, medical and psychiatric condition so that he has better impulse control . Encouraged him to interact appropriately with staff and other patients. Chart reviewed. Discussed with staff. Seen and assessed in his room. Twenty minutes of cognitive behavior therapy provided. Letty Mcgowan M.D. DR: MATEUS JOB#: [id number] CC:
[2020-01-21] VITALS: BP 132/74
--- NOTE | 2020-01-21 01:40 | NUR ---
NURSE NOTES: FEEDING PUMP NOTED TO BE MALFUNCTIONING, TROUBLESHOOTING PERFORMED WITHOUT ANY SUCCESS. INFORMED CHARGE NURSE, JENARO, ABOUT ISSUE. CALLED NURSING [facility] [place] ABOUT ISSUE AND WAS INSTRUCTED TO CHECK OTHER FLOORS CENTRAL [facility]PPL[facility] IS NOW CLOSED. UNABLE TO FIND AVAILABLE FEEDING PUMP ON ANY OTHER FLOOR- CHARGE NURSE AWARE. BOLUS FEEDING GIVEN HOURLY.
[2020-01-21] MEDS: Vancomycin 1 GM in D5W 275 ML IVPB SCH ×2 (03:10→15:00)
[2020-01-21 04:00] VITALS: BP 115/78
[2020-01-21] MEDS: Piperacillin/Tazobactam 3.375 GM in NS 110 ML IVPB SCH ×3 (05:58→21:49)
[2020-01-21] MEDS: NovoLOG Insulin Flexpen SUBQ SCH ×4 (05:59→18:00)
[2020-01-21 06:52] LABS: BASOPHILS % (AUTO) 0.5 % (0.0-2.0); EOSINOPHILS % (AUTO) 0.1 % (0.0-3.0); HEMATOCRIT 30.4 % (42.0-52.0); HEMOGLOBIN 10.7 G/DL (14.2-18.0); LYMPHOCYTES % (AUTO) 10.5 % (20.0-45.0); MEAN CORPUSCULAR VOLUME 87 FL (80-99); MONOCYTES % (AUTO) 8.8 % (1.0-10.0); NEUTROPHILS % (AUTO) 80.1 % (45.0-75.0); PLATELET COUNT 205 K/UL (150-450); RED BLOOD COUNT 3.51 M/UL (4.70-6.10); RED CELL DISTRIBUTION WIDTH 13.1 % (11.6-14.8); WHITE BLOOD COUNT 10.6 K/UL (4.8-10.8)
[2020-01-21 07:14] LABS: ANION GAP 11 mmol/L (5-15); BLOOD UREA NITROGEN 33 mg/dL (7-18); CALCIUM 9.4 MG/DL (8.5-10.1); CARBON DIOXIDE 26 MMOL/L (21-32); CHLORIDE 104 MMOL/L (98-107); CREATININE 0.7 MG/DL (0.55-1.30); POTASSIUM 3.4 MMOL/L (3.5-5.1); SODIUM 141 MMOL/L (136-145)
--- NOTE | 2020-01-21 07:44 | NUR ---
HAND-OFF: Report given to CORBY LOVE. PLAN OF CARE ENDORSED.
[2020-01-21 08:00] VITALS: BP 130/60
--- NOTE | 2020-01-21 08:44 | General Progress Note ---
Assessment/Plan Problem List: (1) Suspected COVID-19 virus infection ICD Codes: R68.89 - Other general symptoms and signs SNOMED: 935662235 (2) Pneumonia ICD Codes: J18.9 - Pneumonia, unspecified organism SNOMED: 084231738 (3) COPD (chronic obstructive pulmonary disease) ICD Codes: J44.9 - Chronic obstructive pulmonary disease, unspecified SNOMED: 79266795 (4) Anemia ICD Codes: D64.9 - Anemia, unspecified SNOMED: 146786538 (5) Diabetes ICD Codes: E11.9 - Type 2 diabetes mellitus without complications SNOMED: 77074847 (6) Encephalopathy ICD Codes: G93.40 - Encephalopathy, unspecified SNOMED: 61027837, 108079019 (7) HTN (hypertension) ICD Codes: I10 - Essential (primary) hypertension SNOMED: 20656189 (8) Decubitus skin ulcer ICD Codes: L89.90 - Pressure ulcer of unspecified site, unspecified stage SNOMED: 948438493 (9) Malnutrition ICD Codes: E46 - Unspecified protein-calorie malnutrition SNOMED: 90897176 Status: unchanged Assessment/Plan: o2 pulm tx abx pt diet eval cbc bmp am Subjective Constitutional: Reports: weakness Allergies: Coded Allergies: No Known Allergies (Unverified , 04/08/16) All Systems: reviewed and negative except above Subjective o2nc sleeping Objective Last 24 Hour Vital Signs Date Time Temp Pulse Resp B/P (MAP) Pulse Ox O2 Delivery O2 Flow Rate FiO2 01/21/20 04:00 98.2 96 16 115/78 (90) 100 01/21/20 04:00 84 01/21/20 00:00 99.3 99 21 132/74 (93) 100 01/21/20 00:00 91 01/21/20 00:00 Nasal Cannula 2.0 01/20/20 20:00 99.4 88 19 153/94 (113) 100 01/20/20 20:00 115 01/20/20 20:00 Nasal Cannula 2.0 01/20/20 16:00 Nasal Cannula 2.0 01/20/20 16:00 99.5 100 16 151/68 (95) 100 01/20/20 15:25 93 01/20/20 12:00 Nasal Cannula 2.0 4/10/20 12:00 99.7 102 16 147/85 (105) 100 01/20/20 11:51 103 Intake and Output 01/20/20 01/21/20 19:00 07:00 Intake Total 1000.000 ml 815 ml Output Total 50 ml 50 ml Balance 950.000 ml 765 ml Intake Free Water 100 ml IV Total 935.000 ml Tube Feeding 65 ml 715 ml Output Urine Total 50 ml 50 ml # Voids 7 3 # Bowel Movements 8 2 Laboratory Tests 01/21/20 02:11: Vancomycin Level Trough 13.0H 01/21/20 04:10: White Blood Count 10.6, Red Blood Count 3.51L, Hemoglobin 10.7L, Hematocrit 30.4L, Mean Corpuscular Volume 87, Mean Corpuscular Hemoglobin 30.4, Mean Corpuscular Hemoglobin Concent 35.1, Red Cell Distribution Width 13.1, Platelet Count 205, Mean Platelet Volume 6.8, Neutrophils (%) (Auto) 80.1H, Lymphocytes ( %) (Auto) 10.5L, Monocytes (%) (Auto) 8.8, Eosinophils (%) (Auto) 0.1, Basophils (%) (Auto) 0.5, Sodium Level 141, Potassium Level 3.4L, Chloride Level 104, Carbon Dioxide Level 26, Anion Gap 11, Blood Urea Nitrogen 33H, Creatinine 0.7, Estimat Glomerular Filtration Rate > 60, Glucose Level 109H, Calcium Level 9.4 Height (Feet): 5 Height (Inches): 9.00 Weight (Pounds): 160 General Appearance: lethargic EENT: normal ENT inspection Neck: normal alignment Cardiovascular: normal rate, regular rhythm Respiratory/Chest: no accessory muscle use Extremities: normal inspection Skin: normal pigmentation Tone Dietz DO Jan 21, 2020 08:44
[2020-01-21] MEDS: Memantine 5 MG TAB GT SCH ×2 (11:06→21:45)
[2020-01-21] MEDS: Heparin 5000 units/ml inj SUBQ SCH ×2 (11:09→21:49)
[2020-01-21 12:00] VITALS: BP 127/73
--- NOTE | 2020-01-21 12:00 | Pulmonology Progress Note ---
Assessment/Plan Assessment/Plan IMPRESSION: 1. Right lung pneumonia. 2. long-term resident. DISCUSSION: Continue abx O2 Pulmonary hygiene Will follow Miguel Roche M.D. Subjective Interval Events: None new Constitutional: Reports: no symptoms HEENT: Repors: no symptoms Respiratory: Reports: no symptoms Cardiovascular: Reports: no symptoms Allergies: Coded Allergies: No Known Allergies (Unverified , 04/08/16) Objective Last 24 Hour Vital Signs Date Time Temp Pulse Resp B/P (MAP) Pulse Ox O2 Delivery O2 Flow Rate FiO2 01/21/20 04:00 98.2 96 16 115/78 (90) 100 01/21/20 04:00 84 01/21/20 00:00 99.3 99 21 132/74 (93) 100 01/21/20 00:00 91 01/21/20 00:00 Nasal Cannula 2.0 01/20/20 20:00 99.4 88 19 153/94 (113) 100 01/20/20 20:00 115 01/20/20 20:00 Nasal Cannula 2.0 01/20/20 16:00 Nasal Cannula 2.0 01/20/20 16:00 99.5 100 16 151/68 (95) 100 01/20/20 15:25 93 Intake and Output 01/20/20 01/21/20 19:00 07:00 Intake Total 1000.000 ml 815 ml Output Total 50 ml 50 ml Balance 950.000 ml 765 ml Intake Free Water 100 ml IV Total 935.000 ml Tube Feeding 65 ml 715 ml Output Urine Total 50 ml 50 ml # Voids 7 3 # Bowel Movements 8 2 General Appearance: no acute distress HEENT: normocephalic Respiratory/Chest: chest wall non-tender Cardiovascular: normal peripheral pulses Abdomen: normal bowel sounds Microbiology Date/Time Source Procedure Growth Status 01/19/20 15:00 Blood Blood Culture - Preliminary NO GROWTH AFTER 24 HOURS Resulted 01/19/20 14:45 Blood Blood Culture - Preliminary NO GROWTH AFTER 24 HOURS Resulted 01/19/20 15:00 Nasal Nares MRSA Culture - Final Staphylococcus Aureus - Mrsa Complete 01/19/20 15:00 Nasal Nares - Final Complete 01/19/20 15:00 Nasal Nares - Final Complete 01/19/20 14:45 Nasopharynx Coronavirus COVID-19 PCR (MARYAN) - Final Complete 01/20/20 12:50 Stool Clostridium difficile Toxin Assay - Final Complete 01/20/20 09:10 Rectum Received Laboratory Tests 01/21/20 02:11: Vancomycin Level Trough 13.0H 01/21/20 04:10: White Blood Count 10.6, Red Blood Count 3.51L, Hemoglobin 10.7L, Hematocrit 30.4L, Mean Corpuscular Volume 87, Mean Corpuscular Hemoglobin 30.4, Mean Corpuscular Hemoglobin Concent 35.1, Red Cell Distribution Width 13.1, Platelet Count 205, Mean Platelet Volume 6.8, Neutrophils (%) (Auto) 80.1H, Lymphocytes ( %) (Auto) 10.5L, Monocytes (%) (Auto) 8.8, Eosinophils (%) (Auto) 0.1, Basophils (%) (Auto) 0.5, Sodium Level 141, Potassium Level 3.4L, Chloride Level 104, Carbon Dioxide Level 26, Anion Gap 11, Blood Urea Nitrogen 33H, Creatinine 0.7, Estimat Glomerular Filtration Rate > 60, Glucose Level 109H, Calcium Level 9.4 Current Medications Medications (Trade) Dose Ordered Sig/Angel Route PRN Reason Start Time Stop Time Status Last Admin Dose Admin Acetaminophen (Tylenol) 650 mg Q4H PRN ORAL Mild Pain (Pain Scale 1-3) 01/20/20 23:00 02/18/20 18:59 Dextrose (Dextrose 50%) 25 ml Q30M PRN IV Hypoglycemia 01/20/20 20:00 04/18/20 18:59 Dextrose (Dextrose 50%) 50 ml Q30M PRN IV Hypoglycemia 01/20/20 20:00 04/18/20 18:59 Heparin Sodium (Porcine) (Heparin 5000 units/ml) 5,000 units EVERY 12 HOURS SUBQ 01/20/20 21:00 03/04/20 20:59 01/21/20 11:09 Insulin Aspart (NovoLOG) EVERY 6 HOURS SUBQ 01/21/20 00:00 04/18/20 20:59 Memantine (Namenda) 5 mg EVERY 12 HOURS GT 01/20/20 21:00 02/19/20 17:59 01/21/20 11:06 Piperacillin Sod/ Tazobactam Sod 3.375 gm/Sodium Chloride 110 ml @ 220 mls/hr Q8HR IVPB 01/20/20 22:00 01/26/20 21:59 01/21/20 05:58 Potassium Chloride/Sodium Chloride 1,000 ml @ 50 mls/hr Q20H IV 01/20/20 19:45 02/18/20 20:59 Vancomycin HCl (Vanco rx to dose) 1 ea DAILY PRN MISC Per rx protocol 01/21/20 09:00 02/18/20 18:29 Vancomycin HCl 1 gm/Dextrose 275 ml @ 183.708 mls/hr Q12H IVPB 01/21/20 03:00 01/25/20 02:59 01/21/20 03:10 Miguel Roche MD Jan 21, 2020 12:00
--- NOTE | 2020-01-21 12:08 | NUR ---
RD ASSESSMENT & RECOMMENDATIONS SEE CARE ACTIVITY FOR COMPLETE ASSESSMENT DAILY ESTIMATED NEEDS: Needs based on DM, AUCTION CLERK TF, sepsis/ 73kg 22-28 kcals/kg 2747-0339 total kcals 1-2 g protein/kg 73-146 g total protein 25-30 mL/kg 6922-8049 total fluid mLs NUTRITION DIAGNOSIS: Swallowing difficulty R/T dysphagia as evidenced by PEG dep. CURRENT TF:Glucerna 1.2 @ 65ml/hr x 24 hrs ENTERAL NUTRITION RECOMMENDATIONS: Glucerna 1.2 @ 65ml/hr x 24 hrs to provide 1560ml, 1872kcal, 94g prot, 1256ml free water * Maintain current TF -> meets 100% est kcal/prot needs * HOB over 30 degrees/ water flush per MD ADDITIONAL RECOMMENDATIONS: * Calibrated bedscale wt for accurate CBW * Consider adding PARISA BID via PEG for skin integrity * Monitor lytes, replete as needed * Monitor BGs, need for additional hypoglycemics
--- NOTE | 2020-01-21 15:00 | Progress Note ---
DATE: 01/21/2020 SUBJECTIVE: This is a 69-year-old male patient. He is admitted to the hospital secondary to seizure disorder, hypertension, and diabetes. He was ruled out COVID-19. He has altered mental status, confusion. That is why, his attending has requested daily psychiatric consultation for this patient. He is still confused and disorganized. MENTAL STATUS EXAMINATION: This is a 69-year-old male patient. Appearance is disheveled. Attitude, irritable and agitated. Affect, guarded and restricted. Intellect poor. Mood, depressed and anxious. Motor activity, psychomotor agitation. Attention span is poor. Orientation x2. Speech is low volume, slurred. Thought process, disorganized and illogical. Insight and judgment is poor. DIAGNOSIS: Major depressive disorder, mild, recurrent with psychotic features, rule out dementia with psychosis. PLAN: For this patient is to treat him with a medication regimen consisting of Namenda 5 mg twice a day for G-tube. A 20 minutes of cognitive behavioral therapy to help him identify his automatic negative thoughts, help him convert his negative thoughts to more positive thoughts to reduce depression, anxiety, and mood lability. Chart reviewed. Discussed with staff. Seen and assessed in his room. A 20 minutes of cognitive behavioral therapy provided. Letty Mcgowan M.D. DR: BRYCE JOB#: [id number] CC:
[2020-01-21] MEDS: NS w/KCl 20mEq 1000ml 1,000 ML IV SCH (15:45)
[2020-01-21 16:00] VITALS: BP 156/74
--- NOTE | 2020-01-21 19:27 | Surgery Progress Note ---
Surgery Progress Note Subjective Additional Comments labs improved exam stable no acute events Objective Last 24 Hour Vital Signs Date Time Temp Pulse Resp B/P (MAP) Pulse Ox O2 Delivery O2 Flow Rate FiO2 01/21/20 16:00 75 01/21/20 16:00 Room Air 01/21/20 12:00 74 01/21/20 12:00 Room Air 01/21/20 08:00 Room Air 01/21/20 08:00 79 01/21/20 04:00 98.2 96 16 115/78 (90) 100 01/21/20 04:00 84 01/21/20 00:00 99.3 99 21 132/74 (93) 100 01/21/20 00:00 91 01/21/20 00:00 Nasal Cannula 2.0 01/20/20 20:00 99.4 88 19 153/94 (113) 100 01/20/20 20:00 115 01/20/20 20:00 Nasal Cannula 2.0 I&O Intake and Output 01/20/20 01/21/20 19:00 07:00 Intake Total 1000.000 ml 815 ml Output Total 50 ml 50 ml Balance 950.000 ml 765 ml Intake Free Water 100 ml IV Total 935.000 ml Tube Feeding 65 ml 715 ml Output Urine Total 50 ml 50 ml # Voids 7 3 # Bowel Movements 8 2 Dressing: other Wound: other Drains: other Cardiovascular: RSR Respiratory: decreased breath sounds Abdomen: soft, non-tender, present bowel sounds Extremities: no tenderness, no cyanosis Laboratory Tests Test 01/21/20 02:11 01/21/20 04:10 Vancomycin Level Trough 13.0 ug/mL (5.0-12.0) H White Blood Count 10.6 K/UL (4.8-10.8) Red Blood Count 3.51 M/UL (4.70-6.10) L Hemoglobin 10.7 G/DL (14.2-18.0) L Hematocrit 30.4 % (42.0-52.0) L Mean Corpuscular Volume 87 FL (80-99) Mean Corpuscular Hemoglobin 30.4 PG (27.0-31.0) Mean Corpuscular Hemoglobin Concent 35.1 G/DL (32.0-36.0) Red Cell Distribution Width 13.1 % (11.6-14.8) Platelet Count 205 K/UL (150-450) Mean Platelet Volume 6.8 FL (6.5-10.1) Neutrophils (%) (Auto) 80.1 % (45.0-75.0) H Lymphocytes (%) (Auto) 10.5 % (20.0-45.0) L Monocytes (%) (Auto) 8.8 % (1.0-10.0) Eosinophils (%) (Auto) 0.1 % (0.0-3.0) Basophils (%) (Auto) 0.5 % (0.0-2.0) Sodium Level 141 MMOL/L (136-145) Potassium Level 3.4 MMOL/L (3.5-5.1) L Chloride Level 104 MMOL/L (98-107) Carbon Dioxide Level 26 MMOL/L (21-32) Anion Gap 11 mmol/L (5-15) Blood Urea Nitrogen 33 mg/dL (7-18) H Creatinine 0.7 MG/DL (0.55-1.30) Estimat Glomerular Filtration Rate > 60 mL/min (>60) Glucose Level 109 MG/DL (74-106) H Calcium Level 9.4 MG/DL (8.5-10.1) Plan Problems: (1) Decubitus skin ulcer Assessment & Plan: Patient presented on admission with contractures, multiple areas of hyperpigmentation from previous pressure injuries. Hyperpigmentation noted to Sacrum, R and L trochanteric, dorso/lateral R foot and distal/lateral R foot and R heel. Both heels are soft but blanchable. Scrotum and perineum are erythematous but dry An area of erythema noted to medial upper R thigh. Tx.Plan: Apply Moisture Barrier Paste to sacrum. Cover with Optifoam drsg. Change every 3 days and prn. Apply Moisture Barrier Paste to scrotum, Bilat groin and both ischial tuberosities with each incontinence care. Apply Cavilon Skin Barrier to R and L trochanteric areas,Both heels and lateral aspects of both feet. Cover each area with Optifoam drsg.Change every 7 days and prn. Apply Cavilon Skin Barrier to both heels. Cover each heel with Optifoam drsg. Change every 7 days and prn. Reposition at least every 2hours or as tolerated. Place pillow between knees. Off-load heels with pillow. APM/Paty Mattress overlay. 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 CURRENT TF:Glucerna 1.2 @ 65ml/hr x 24 hrs ENTERAL NUTRITION RECOMMENDATIONS: Glucerna 1.2 @ 65ml/hr x 24 hrs to provide 1560ml, 1872kcal, 94g prot, 1256ml free water * Maintain current TF -> meets 100% est kcal/prot needs * HOB over 30 degrees/ water flush per MD ADDITIONAL RECOMMENDATIONS: * Calibrated bedscale wt for accurate CBW * Consider adding PARISA BID via PEG for skin integrity * Monitor lytes, replete as needed * Monitor BGs, need for additional hypoglycemics (3) Pneumonia (4) COPD (chronic obstructive pulmonary disease) (5) Anemia (6) Cellulitis Assessment & Plan: perirectal cellulitis from incontinence incontinence associated dermatitis care instructions given will monitor (7) Diabetes (8) Encephalopathy (9) HTN (hypertension) (10) BPH (benign prostatic hyperplasia) (11) Mandibular pain Christiano Castelan Jan 21, 2020 19:27
[2020-01-21 20:00] VITALS: BP 117/63
--- NOTE | 2020-01-21 20:10 | NUR ---
NURSE NOTES: Received patient report from CORBY Mccord. Patient shows no signs of distress or pain at this time. AOx 1. IV checked, patent and flushed. No signs of erythema, infiltration, or bleeding at this time. Bed in the lowest position, call light within reach, bed alarm on, and side rails up x 3. Will continue plan of care.
--- NOTE | 2020-01-21 20:10 | Infectious Diseases Prog Note ---
Assessment/Plan Assessment/Plan Afebrile No leukocytosis Mild transaminitis PNA r/o probable COVID flu swab neg CXR: Nodular and reticular right basilar opacities. Nonspecific, could indicate acute inflammation versus chronic postinflammatory changes, among many other possibilities. r/o bacteremia BCx: P Multiple pressure injuries but healing, no evidence of infection QTc 435 MRSA nares positive Psych disorder COPD BPH DM Seizure disorder dementia HTN GERD anemia G tube suprapubic catheter, SP exchange 12/28 Plan: zosyn and vanc #2 SP ceftriaxone and azithromycin #1 f/u urine legionella f/u mycoplasma IgM f/u COVID test x2 f/u sputum cx f/u BCx COVID isolation monitor temp and CBC monitor resp status will not obtain urine specimen at this time. suprapubic samples usually are contaminated. pls do not DC isolation without ID approval RALPH TAVAREZ Subjective Allergies: Coded Allergies: No Known Allergies (Unverified , 04/08/16) Subjective Afebrile. on RA will not answer questions Objective Vital Signs Last 24 Hour Vital Signs Date Time Temp Pulse Resp B/P (MAP) Pulse Ox O2 Delivery O2 Flow Rate FiO2 01/21/20 16:00 75 01/21/20 16:00 Room Air 01/21/20 12:00 74 01/21/20 12:00 Room Air 01/21/20 08:00 Room Air 01/21/20 08:00 79 01/21/20 04:00 98.2 96 16 115/78 (90) 100 01/21/20 04:00 84 01/21/20 00:00 99.3 99 21 132/74 (93) 100 01/21/20 00:00 91 01/21/20 00:00 Nasal Cannula 2.0 Height (Feet): 5 Height (Inches): 9.00 Weight (Pounds): 160 General Appearance: no acute distress, cachetic Respiratory/Chest: no respiratory distress, no accessory muscle use Abdomen: soft, non tender, non distended Musculoskeletal: atrophy Microbiology Date/Time Source Procedure Growth Status 01/19/20 15:00 Blood Blood Culture - Preliminary NO GROWTH AFTER 24 HOURS Resulted 01/19/20 14:45 Blood Blood Culture - Preliminary NO GROWTH AFTER 24 HOURS Resulted 01/19/20 15:00 Nasal Nares MRSA Culture - Final Staphylococcus Aureus - Mrsa Complete 01/19/20 15:00 Nasal Nares - Final Complete 01/19/20 15:00 Nasal Nares - Final Complete 01/19/20 14:45 Nasopharynx Coronavirus COVID-19 PCR (MARYAN) - Final Complete 01/20/20 12:50 Stool Clostridium difficile Toxin Assay - Final Complete 01/20/20 09:10 Rectum Received Laboratory Tests Test 01/21/20 02:11 01/21/20 04:10 Vancomycin Level Trough 13.0 ug/mL (5.0-12.0) H White Blood Count 10.6 K/UL (4.8-10.8) Red Blood Count 3.51 M/UL (4.70-6.10) L Hemoglobin 10.7 G/DL (14.2-18.0) L Hematocrit 30.4 % (42.0-52.0) L Mean Corpuscular Volume 87 FL (80-99) Mean Corpuscular Hemoglobin 30.4 PG (27.0-31.0) Mean Corpuscular Hemoglobin Concent 35.1 G/DL (32.0-36.0) Red Cell Distribution Width 13.1 % (11.6-14.8) Platelet Count 205 K/UL (150-450) Mean Platelet Volume 6.8 FL (6.5-10.1) Neutrophils (%) (Auto) 80.1 % (45.0-75.0) H Lymphocytes (%) (Auto) 10.5 % (20.0-45.0) L Monocytes (%) (Auto) 8.8 % (1.0-10.0) Eosinophils (%) (Auto) 0.1 % (0.0-3.0) Basophils (%) (Auto) 0.5 % (0.0-2.0) Sodium Level 141 MMOL/L (136-145) Potassium Level 3.4 MMOL/L (3.5-5.1) L Chloride Level 104 MMOL/L (98-107) Carbon Dioxide Level 26 MMOL/L (21-32) Anion Gap 11 mmol/L (5-15) Blood Urea Nitrogen 33 mg/dL (7-18) H Creatinine 0.7 MG/DL (0.55-1.30) Estimat Glomerular Filtration Rate > 60 mL/min (>60) Glucose Level 109 MG/DL (74-106) H Calcium Level 9.4 MG/DL (8.5-10.1) Current Medications Medications (Trade) Dose Ordered Sig/Angel Route PRN Reason Start Time Stop Time Status Last Admin Dose Admin Acetaminophen (Tylenol) 650 mg Q4H PRN ORAL Mild Pain (Pain Scale 1-3) 01/20/20 23:00 02/18/20 18:59 Dextrose (Dextrose 50%) 25 ml Q30M PRN IV Hypoglycemia 01/20/20 20:00 04/18/20 18:59 Dextrose (Dextrose 50%) 50 ml Q30M PRN IV Hypoglycemia 01/20/20 20:00 04/18/20 18:59 Heparin Sodium (Porcine) (Heparin 5000 units/ml) 5,000 units EVERY 12 HOURS SUBQ 01/20/20 21:00 03/04/20 20:59 01/21/20 11:09 Insulin Aspart (NovoLOG) EVERY 6 HOURS SUBQ 01/21/20 00:00 04/18/20 20:59 Memantine (Namenda) 5 mg EVERY 12 HOURS GT 01/20/20 21:00 02/19/20 17:59 01/21/20 11:06 Piperacillin Sod/ Tazobactam Sod 3.375 gm/Sodium Chloride 110 ml @ 220 mls/hr Q8HR IVPB 01/20/20 22:00 01/26/20 21:59 01/21/20 14:09 Potassium Chloride/Sodium Chloride 1,000 ml @ 50 mls/hr Q20H IV 01/20/20 19:45 02/18/20 20:59 Vancomycin HCl (Vanco rx to dose) 1 ea DAILY PRN MISC Per rx protocol 01/21/20 09:00 02/18/20 18:29 Vancomycin HCl 1 gm/Dextrose 275 ml @ 183.708 mls/hr Q12H IVPB 01/21/20 03:00 01/25/20 02:59 01/21/20 15:00 Bridget Weaver MD Jan 21, 2020 20:10
[2020-01-21] MEDS ORDERED: D5W 275ml ONE (21:07)
[2020-01-21] MEDS ORDERED: NS 275ml ONE (21:07)
[2020-01-22] VITALS: BP 140/70
[2020-01-22] MEDS: Vancomycin 1 GM in D5W 275 ML IVPB SCH ×2 (03:07→15:28)
[2020-01-22 04:00] VITALS: BP 145/76
--- NOTE | 2020-01-22 04:35 | NUR ---
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
[2020-01-22 05:05] LABS: BASOPHILS % (AUTO) 0.8 % (0.0-2.0); EOSINOPHILS % (AUTO) 1.8 % (0.0-3.0); HEMATOCRIT 27.9 % (42.0-52.0); HEMOGLOBIN 9.6 G/DL (14.2-18.0); LYMPHOCYTES % (AUTO) 25.1 % (20.0-45.0); MEAN CORPUSCULAR VOLUME 86 FL (80-99); MONOCYTES % (AUTO) 10.5 % (1.0-10.0); NEUTROPHILS % (AUTO) 61.8 % (45.0-75.0); PLATELET COUNT 177 K/UL (150-450); RED BLOOD COUNT 3.23 M/UL (4.70-6.10); WHITE BLOOD COUNT 6.7 K/UL (4.8-10.8)
[2020-01-22 05:22] LABS: ANION GAP 10 mmol/L (5-15); BLOOD UREA NITROGEN 24 mg/dL (7-18); CALCIUM 9.4 MG/DL (8.5-10.1); CARBON DIOXIDE 27 MMOL/L (21-32); CHLORIDE 106 MMOL/L (98-107); CREATININE 0.6 MG/DL (0.55-1.30); POTASSIUM 3.4 MMOL/L (3.5-5.1); SODIUM 143 MMOL/L (136-145)
[2020-01-22] MEDS: NovoLOG Insulin Flexpen SUBQ SCH ×4 (06:00→18:00)
[2020-01-22] MEDS: Piperacillin/Tazobactam 3.375 GM in NS 110 ML IVPB SCH ×3 (06:58→22:05)
--- NOTE | 2020-01-22 07:55 | NUR ---
NURSE NOTES: Nurse report given by CORBY Andrews. Patient's sleeping in bed but easily awake by voice calling, AO x 1, confused, no s/s of distress or SOB, no s/s of pain. Bed low and locked, call light within reach, side rails x3, bed alarm is armed. IV is running fluid, no s/s of infiltration or tenderness. Suprapubic catheter, no s/s of infection, tenderness or redness around the site. Tube feeding noted, feeding pump malfunction, endorsed by previous nurse he's been getting bolus, yet no order; will verify with DR. Dietz and Dr. Bloom. Wound assessment performed, area of concerns noted. Will continue to monitor.
[2020-01-22 08:00] VITALS: BP 137/76
--- NOTE | 2020-01-22 08:16 | NUR ---
HAND-OFF: Report given to CORBY Garcia. Patient shows no signs of distress. Endorsed plan of care.
[2020-01-22] MEDS: Memantine 5 MG TAB GT SCH ×2 (09:00→22:04)
[2020-01-22] MEDS: Heparin 5000 units/ml inj SUBQ SCH ×2 (09:00→22:08)
--- NOTE | 2020-01-22 09:02 | General Progress Note ---
Assessment/Plan Problem List: (1) Suspected COVID-19 virus infection ICD Codes: R68.89 - Other general symptoms and signs SNOMED: 036110537 (2) Pneumonia ICD Codes: J18.9 - Pneumonia, unspecified organism SNOMED: 120306338 (3) COPD (chronic obstructive pulmonary disease) ICD Codes: J44.9 - Chronic obstructive pulmonary disease, unspecified SNOMED: 44501777 (4) Anemia ICD Codes: D64.9 - Anemia, unspecified SNOMED: 641263389 (5) Diabetes ICD Codes: E11.9 - Type 2 diabetes mellitus without complications SNOMED: 84046956 (6) Encephalopathy ICD Codes: G93.40 - Encephalopathy, unspecified SNOMED: 96863336, 383411249 (7) HTN (hypertension) ICD Codes: I10 - Essential (primary) hypertension SNOMED: 94889664 (8) Decubitus skin ulcer ICD Codes: L89.90 - Pressure ulcer of unspecified site, unspecified stage SNOMED: 737217195 (9) Malnutrition ICD Codes: E46 - Unspecified protein-calorie malnutrition SNOMED: 86788451 Status: unchanged Assessment/Plan: o2 pulm tx abx pt diet eval cbc bmp am Subjective Constitutional: Reports: weakness Allergies: Coded Allergies: No Known Allergies (Unverified , 04/08/16) All Systems: reviewed and negative except above Subjective o2nc sleeping Objective Last 24 Hour Vital Signs Date Time Temp Pulse Resp B/P (MAP) Pulse Ox O2 Delivery O2 Flow Rate FiO2 01/22/20 07:23 78 01/22/20 04:00 97.9 80 21 145/76 (99) 94 01/22/20 00:00 97.8 74 21 140/70 (93) 94 01/22/20 00:00 79 01/21/20 21:00 Room Air 01/21/20 20:00 69 01/21/20 20:00 97.5 76 21 117/63 (81) 97 01/21/20 16:00 98.6 78 20 156/74 (101) 97 01/21/20 16:00 75 01/21/20 16:00 Room Air 01/21/20 12:00 74 01/21/20 12:00 97.4 77 20 127/73 (91) 01/21/20 12:00 Room Air Intake and Output 01/21/20 01/22/20 19:00 07:00 Intake Total 165 ml 165 ml Output Total 50 ml 50 ml Balance 115 ml 115 ml Intake Free Water 100 ml 100 ml Tube Feeding 65 ml 65 ml Output Urine Total 50 ml 50 ml # Voids 3 4 Laboratory Tests 01/22/20 01:50: Vancomycin Level Trough 18.7H 01/22/20 04:05: White Blood Count 6.7, Red Blood Count 3.23L, Hemoglobin 9.6L, Hematocrit 27.9L , Mean Corpuscular Volume 86, Mean Corpuscular Hemoglobin 29.7, Mean Corpuscular Hemoglobin Concent 34.4, Red Cell Distribution Width 13.0, Platelet Count 177, Mean Platelet Volume 6.9, Neutrophils (%) (Auto) 61.8, Lymphocytes (% ) (Auto) 25.1, Monocytes (%) (Auto) 10.5H, Eosinophils (%) (Auto) 1.8, Basophils (%) (Auto) 0.8, Sodium Level 143, Potassium Level 3.4L, Chloride Level 106, Carbon Dioxide Level 27, Anion Gap 10, Blood Urea Nitrogen 24H, Creatinine 0.6, Estimat Glomerular Filtration Rate > 60, Glucose Level 86, Calcium Level 9.4 Height (Feet): 5 Height (Inches): 9.00 Weight (Pounds): 160 General Appearance: lethargic EENT: normal ENT inspection Neck: normal alignment Cardiovascular: normal rate, regular rhythm Extremities: normal inspection Skin: normal pigmentation Tone Dietz DO Jan 22, 2020 09:02
--- NOTE | 2020-01-22 10:30 | NUR ---
NURSE NOTES: Spoke to Dr. Bloom regarding tube feeding malfunctions, already tried two different machines and they're not working and there are no other pumps available. MD informed to consult with dietitian regarding bolus order. Dietitian recommend Glucerna 1.2 with 390ml QID. Order acknowledged and carried out.
--- NOTE | 2020-01-22 11:07 | Pulmonology Progress Note ---
Assessment/Plan Assessment/Plan IMPRESSION: 1. Right lung pneumonia. 2. longterm resident. DISCUSSION: Continue abx O2 prn; Is COVID 19 negative Currently on RA Pulmonary hygiene Will follow Miguel Roche M.D. Subjective Interval Events: None new Constitutional: Reports: no symptoms HEENT: Repors: no symptoms Respiratory: Reports: no symptoms Cardiovascular: Reports: no symptoms Gastrointestinal/Abdominal: Reports: no symptoms Allergies: Coded Allergies: No Known Allergies (Unverified , 04/08/16) Objective Last 24 Hour Vital Signs Date Time Temp Pulse Resp B/P (MAP) Pulse Ox O2 Delivery O2 Flow Rate FiO2 01/22/20 07:23 78 01/22/20 04:00 97.9 80 21 145/76 (99) 94 01/22/20 00:00 97.8 74 21 140/70 (93) 94 01/22/20 00:00 79 01/21/20 21:00 Room Air 01/21/20 20:00 69 01/21/20 20:00 97.5 76 21 117/63 (81) 97 01/21/20 16:00 98.6 78 20 156/74 (101) 97 01/21/20 16:00 75 01/21/20 16:00 Room Air 01/21/20 12:00 74 01/21/20 12:00 97.4 77 20 127/73 (91) 01/21/20 12:00 Room Air Intake and Output 01/21/20 01/22/20 19:00 07:00 Intake Total 165 ml 165 ml Output Total 50 ml 50 ml Balance 115 ml 115 ml Intake Free Water 100 ml 100 ml Tube Feeding 65 ml 65 ml Output Urine Total 50 ml 50 ml # Voids 3 4 General Appearance: no acute distress HEENT: normocephalic Respiratory/Chest: chest wall non-tender Cardiovascular: normal peripheral pulses Abdomen: normal bowel sounds Extremities: no cyanosis Microbiology Date/Time Source Procedure Growth Status 01/19/20 15:00 Blood Blood Culture - Preliminary Resulted 01/19/20 14:45 Blood Blood Culture - Preliminary NO GROWTH AFTER 48 HOURS Resulted 01/19/20 15:00 Nasal Nares MRSA Culture - Final Staphylococcus Aureus - Mrsa Complete 01/19/20 15:00 Nasal Nares - Final Complete 01/19/20 15:00 Nasal Nares - Final Complete 01/19/20 14:45 Nasopharynx Coronavirus COVID-19 PCR ([facility]AN) - Final Complete 01/20/20 12:50 Stool Clostridium difficile Toxin Assay - Final Complete 01/20/20 09:10 Rectum VRE Culture - Final Enterococcus Faecium - Vre Complete 01/20/20 09:10 Rectum - Final NO CARBAPENEM-RESISTANT ENTEROBACTERI... Complete Laboratory Tests 01/22/20 01:50: Vancomycin Level Trough 18.7H 01/22/20 04:05: White Blood Count 6.7, Red Blood Count 3.23L, Hemoglobin 9.6L, Hematocrit 27.9L , Mean Corpuscular Volume 86, Mean Corpuscular Hemoglobin 29.7, Mean Corpuscular Hemoglobin Concent 34.4, Red Cell Distribution Width 13.0, Platelet Count 177, Mean Platelet Volume 6.9, Neutrophils (%) (Auto) 61.8, Lymphocytes (% ) (Auto) 25.1, Monocytes (%) (Auto) 10.5H, Eosinophils (%) (Auto) 1.8, Basophils (%) (Auto) 0.8, Sodium Level 143, Potassium Level 3.4L, Chloride Level 106, Carbon Dioxide Level 27, Anion Gap 10, Blood Urea Nitrogen 24H, Creatinine 0.6, Estimat Glomerular Filtration Rate > 60, Glucose Level 86, Calcium Level 9.4 Current Medications Medications (Trade) Dose Ordered Sig/Angel Route PRN Reason Start Time Stop Time Status Last Admin Dose Admin Acetaminophen (Tylenol) 650 mg Q4H PRN ORAL Mild Pain (Pain Scale 1-3) 01/20/20 23:00 02/18/20 18:59 Dextrose (Dextrose 50%) 25 ml Q30M PRN IV Hypoglycemia 01/20/20 20:00 04/18/20 18:59 Dextrose (Dextrose 50%) 50 ml Q30M PRN IV Hypoglycemia 01/20/20 20:00 04/18/20 18:59 Heparin Sodium (Porcine) (Heparin 5000 units/ml) 5,000 units EVERY 12 HOURS SUBQ 01/20/20 21:00 03/04/20 20:59 01/22/20 09:00 Insulin Aspart (NovoLOG) EVERY 6 HOURS SUBQ 01/21/20 00:00 04/18/20 20:59 Memantine (Namenda) 5 mg EVERY 12 HOURS GT 01/20/20 21:00 02/19/20 17:59 01/22/20 09:00 Piperacillin Sod/ Tazobactam Sod 3.375 gm/Sodium Chloride 110 ml @ 220 mls/hr Q8HR IVPB 01/20/20 22:00 01/26/20 21:59 01/22/20 06:58 Potassium Chloride/Sodium Chloride 1,000 ml @ 50 mls/hr Q20H IV 01/20/20 19:45 02/18/20 20:59 Vancomycin HCl (Vanco rx to dose) 1 ea DAILY PRN MISC Per rx protocol 01/21/20 09:00 02/18/20 18:29 Vancomycin HCl 1 gm/Dextrose 275 ml @ 183.708 mls/hr Q12H IVPB 01/21/20 03:00 01/25/20 02:59 01/22/20 03:07 Miguel Roche MD Jan 22, 2020 11:07
[2020-01-22] MEDS: NS w/KCl 20mEq 1000ml 1,000 ML IV SCH (11:45)
[2020-01-22 12:00] VITALS: BP 124/76
--- NOTE | 2020-01-22 12:00 | NUR ---
NURSE NOTES: Notified Dr. Weaver regarding patient's blood culture result. Awaiting for response.
--- NOTE | 2020-01-22 14:50 | Surgery Progress Note ---
Surgery Progress Note Subjective Additional Comments no acute events labs noted exam stable Objective Last 24 Hour Vital Signs Date Time Temp Pulse Resp B/P (MAP) Pulse Ox O2 Delivery O2 Flow Rate FiO2 01/22/20 11:41 66 01/22/20 09:00 Room Air 01/22/20 08:00 97.9 110 20 137/76 (96) 100 01/22/20 08:00 63 01/22/20 07:23 78 01/22/20 04:00 97.9 80 21 145/76 (99) 94 01/22/20 00:00 97.8 74 21 140/70 (93) 94 01/22/20 00:00 79 01/21/20 21:00 Room Air 01/21/20 20:00 69 01/21/20 20:00 97.5 76 21 117/63 (81) 97 01/21/20 16:00 98.6 78 20 156/74 (101) 97 01/21/20 16:00 75 01/21/20 16:00 Room Air I&O Intake and Output 01/21/20 01/22/20 19:00 07:00 Intake Total 165 ml 165 ml Output Total 50 ml 50 ml Balance 115 ml 115 ml Intake Free Water 100 ml 100 ml Tube Feeding 65 ml 65 ml Output Urine Total 50 ml 50 ml # Voids 3 4 Dressing: saturated Cardiovascular: RSR Respiratory: decreased breath sounds Abdomen: soft, non-tender, present bowel sounds Extremities: no tenderness, no cyanosis Laboratory Tests Test 01/22/20 01:50 01/22/20 04:05 Vancomycin Level Trough 18.7 ug/mL (5.0-12.0) H White Blood Count 6.7 K/UL (4.8-10.8) Red Blood Count 3.23 M/UL (4.70-6.10) L Hemoglobin 9.6 G/DL (14.2-18.0) L Hematocrit 27.9 % (42.0-52.0) L Mean Corpuscular Volume 86 FL (80-99) Mean Corpuscular Hemoglobin 29.7 PG (27.0-31.0) Mean Corpuscular Hemoglobin Concent 34.4 G/DL (32.0-36.0) Red Cell Distribution Width 13.0 % (11.6-14.8) Platelet Count 177 K/UL (150-450) Mean Platelet Volume 6.9 FL (6.5-10.1) Neutrophils (%) (Auto) 61.8 % (45.0-75.0) Lymphocytes (%) (Auto) 25.1 % (20.0-45.0) Monocytes (%) (Auto) 10.5 % (1.0-10.0) H Eosinophils (%) (Auto) 1.8 % (0.0-3.0) Basophils (%) (Auto) 0.8 % (0.0-2.0) Sodium Level 143 MMOL/L (136-145) Potassium Level 3.4 MMOL/L (3.5-5.1) L Chloride Level 106 MMOL/L (98-107) Carbon Dioxide Level 27 MMOL/L (21-32) Anion Gap 10 mmol/L (5-15) Blood Urea Nitrogen 24 mg/dL (7-18) H Creatinine 0.6 MG/DL (0.55-1.30) Estimat Glomerular Filtration Rate > 60 mL/min (>60) Glucose Level 86 MG/DL (74-106) Calcium Level 9.4 MG/DL (8.5-10.1) Plan Problems: (1) Decubitus skin ulcer Assessment & Plan: Patient presented on admission with contractures, multiple areas of hyperpigmentation from previous pressure injuries. Hyperpigmentation noted to Sacrum, R and L trochanteric, dorso/lateral R foot and distal/lateral R foot and R heel. Both heels are soft but blanchable. Scrotum and perineum are erythematous but dry An area of erythema noted to medial upper R thigh. Tx.Plan: Apply Moisture Barrier Paste to sacrum. Cover with Optifoam drsg. Change every 3 days and prn. Apply Moisture Barrier Paste to scrotum, Bilat groin and both ischial tuberosities with each incontinence care. Apply Cavilon Skin Barrier to R and L trochanteric areas,Both heels and lateral aspects of both feet. Cover each area with Optifoam drsg.Change every 7 days and prn. Apply Cavilon Skin Barrier to both heels. Cover each heel with Optifoam drsg. Change every 7 days and prn. Reposition at least every 2hours or as tolerated. Place pillow between knees. Off-load heels with pillow. APM/Paty Mattress overlay. 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 CURRENT TF:Glucerna 1.2 @ 65ml/hr x 24 hrs ENTERAL NUTRITION RECOMMENDATIONS: Glucerna 1.2 @ 65ml/hr x 24 hrs to provide 1560ml, 1872kcal, 94g prot, 1256ml free water * Maintain current TF -> meets 100% est kcal/prot needs * HOB over 30 degrees/ water flush per MD ADDITIONAL RECOMMENDATIONS: * Calibrated bedscale wt for accurate CBW * Consider adding PARISA BID via PEG for skin integrity * Monitor lytes, replete as needed * Monitor BGs, need for additional hypoglycemics (3) Pneumonia (4) COPD (chronic obstructive pulmonary disease) (5) Anemia (6) Cellulitis Assessment & Plan: perirectal cellulitis from incontinence incontinence associated dermatitis care instructions given will monitor (7) Diabetes (8) Encephalopathy (9) HTN (hypertension) (10) BPH (benign prostatic hyperplasia) (11) Mandibular pain Christiano Castelan Jan 22, 2020 14:50
[2020-01-22 16:00] VITALS: BP 141/65
--- NOTE | 2020-01-22 17:00 | Progress Note ---
DATE: 01/22/2020 SUBJECTIVE: This is a 69-year-old male patient. He is confused and disorganized. He has got no plan for his own self-care. He is irritable, agitated, confused, and disorganized. His mood is labile. He had no his own psychiatric illness, very confused, disorganized, mood labile. The reason why he is in the hospital is because of pneumonia, rule out COVID-19. He has altered mental status, confusion, and decline in cognition below his baseline. MENTAL STATUS EXAMINATION: A 69-year-old male. Appearance is disheveled. Attitude, irritable and agitated. Affect, guarded and restricted. Intellect poor. Mood, depressed and anxious. Motor activity, psychomotor agitation. Attention span is poor. Orientation x2. Speech is pressured. Thought process, disorganized and illogical. Insight and judgment is poor. No signs of any suicidal or homicidal thoughts. DIAGNOSIS: Major depressive disorder, mild, recurrent with psychotic features, rule out dementia with psychosis. PLAN: Treatment with medications to prevent any further decline in his cognition. Chart reviewed. Discussed with staff. Seen and assessed in his room. Twenty minutes of insight-oriented psychotherapy to help this patient have insight and understanding of his medical and psychiatric condition, so he has more alertness and impulse control. Twenty minutes of insight-oriented psychotherapy. Seen and assessed at the bedside. Letty Mcgowan M.D. DR: BRYCE JOB#: [id number] CC:
--- NOTE | 2020-01-22 17:30 | NUR ---
NURSE NOTES: Turned in Covid 19 swab to the lab
--- NOTE | 2020-01-22 19:26 | NUR ---
HAND-OFF: Report given to CORBY Porter. Patient's stable, plan of care endorsed.
[2020-01-22 20:00] VITALS: BP 157/64
[2020-01-23] VITALS: BP 119/74
[2020-01-23] MEDS: Vancomycin 1 GM in D5W 275 ML IVPB SCH ×2 (03:41→15:31)
[2020-01-23 04:00] VITALS: BP 122/78
[2020-01-23] MEDS: Piperacillin/Tazobactam 3.375 GM in NS 110 ML IVPB SCH ×3 (05:44→22:20)
[2020-01-23] MEDS: NovoLOG Insulin Flexpen SUBQ SCH ×4 (06:00→18:00)
--- NOTE | 2020-01-23 07:30 | NUR ---
HAND-OFF: Report given to CORBY Montoya. Patient shows no signs of distress at the time. Endorsed plan of care.
[2020-01-23 08:00] VITALS: BP 149/80
--- NOTE | 2020-01-23 08:27 | NUR ---
NURSE NOTES: Patient stable AOx0 ST with no s/sx of distress or pain. RR even and unlabored on 2L NC. GT clamped with last bolus and flush at 0600. Suprapubic catheter draining well to gravity. IV fluids infusing along with Zosyn. Patient repositioned and all bony prominences elevated. Side rails upx2 and padded, call light within reach, bed low and locked. Will continue to monitor.
[2020-01-23 08:46] LABS: ANION GAP 8 mmol/L (5-15); BLOOD UREA NITROGEN 20 mg/dL (7-18); CALCIUM 9.1 MG/DL (8.5-10.1); CARBON DIOXIDE 28 MMOL/L (21-32); CHLORIDE 107 MMOL/L (98-107); CREATININE 0.8 MG/DL (0.55-1.30); POTASSIUM 3.3 MMOL/L (3.5-5.1); SODIUM 143 MMOL/L (136-145)
[2020-01-23 08:49] LABS: BASOPHILS % (AUTO) 1.1 % (0.0-2.0); EOSINOPHILS % (AUTO) 2.6 % (0.0-3.0); HEMATOCRIT 26.5 % (42.0-52.0); HEMOGLOBIN 9.4 G/DL (14.2-18.0); LYMPHOCYTES % (AUTO) 27.3 % (20.0-45.0); MEAN CORPUSCULAR VOLUME 86 FL (80-99); MONOCYTES % (AUTO) 9.8 % (1.0-10.0); NEUTROPHILS % (AUTO) 59.3 % (45.0-75.0); PLATELET COUNT 174 K/UL (150-450); RED BLOOD COUNT 3.09 M/UL (4.70-6.10); RED CELL DISTRIBUTION WIDTH 12.6 % (11.6-14.8); WHITE BLOOD COUNT 6.2 K/UL (4.8-10.8)
[2020-01-23] MEDS: NS w/KCl 20mEq 1000ml 1,000 ML IV SCH (09:22)
[2020-01-23] MEDS: Memantine 5 MG TAB GT SCH ×2 (09:22→22:20)
[2020-01-23] MEDS: Heparin 5000 units/ml inj SUBQ SCH ×2 (09:27→22:21)
--- NOTE | 2020-01-23 09:30 | General Progress Note ---
Assessment/Plan Problem List: (1) Suspected COVID-19 virus infection ICD Codes: R68.89 - Other general symptoms and signs SNOMED: 519337384 (2) Pneumonia ICD Codes: J18.9 - Pneumonia, unspecified organism SNOMED: 369266075 (3) COPD (chronic obstructive pulmonary disease) ICD Codes: J44.9 - Chronic obstructive pulmonary disease, unspecified SNOMED: 31019397 (4) Anemia ICD Codes: D64.9 - Anemia, unspecified SNOMED: 467885100 (5) Diabetes ICD Codes: E11.9 - Type 2 diabetes mellitus without complications SNOMED: 16326318 (6) Encephalopathy ICD Codes: G93.40 - Encephalopathy, unspecified SNOMED: 49637275, 949949820 (7) HTN (hypertension) ICD Codes: I10 - Essential (primary) hypertension SNOMED: 49482867 (8) Decubitus skin ulcer ICD Codes: L89.90 - Pressure ulcer of unspecified site, unspecified stage SNOMED: 702157903 (9) Malnutrition ICD Codes: E46 - Unspecified protein-calorie malnutrition SNOMED: 06961122 Status: unchanged Assessment/Plan: o2 pulm tx abx pt diet eval cbc bmp am Subjective Constitutional: Reports: weakness Allergies: Coded Allergies: No Known Allergies (Unverified , 04/08/16) All Systems: reviewed and negative except above Subjective o2nc sleeping Objective Last 24 Hour Vital Signs Date Time Temp Pulse Resp B/P (MAP) Pulse Ox O2 Delivery O2 Flow Rate FiO2 01/23/20 09:00 Room Air 01/23/20 04:00 97.1 65 18 122/78 (93) 95 01/23/20 04:00 77 01/23/20 00:00 80 01/23/20 00:00 97.2 71 18 119/74 (89) 95 01/22/20 21:00 Room Air 01/22/20 20:00 97.2 69 18 157/64 (95) 98 01/22/20 16:00 68 01/22/20 16:00 98.1 75 20 141/65 (90) 100 01/22/20 12:00 97.9 108 19 124/76 (92) 97 01/22/20 11:41 66 Intake and Output 01/22/20 01/23/20 19:00 07:00 Intake Total 200 ml 100 ml Output Total 55 ml Balance 145 ml 100 ml Intake Free Water 200 ml 100 ml Output Urine Total 55 ml # Voids 4 1 # Bowel Movements 3 1 Laboratory Tests 01/23/20 07:25: White Blood Count 6.2, Red Blood Count 3.09L, Hemoglobin 9.4L, Hematocrit 26.5L , Mean Corpuscular Volume 86, Mean Corpuscular Hemoglobin 30.6, Mean Corpuscular Hemoglobin Concent 35.6, Red Cell Distribution Width 12.6, Platelet Count 174, Mean Platelet Volume 6.7, Neutrophils (%) (Auto) 59.3, Lymphocytes (% ) (Auto) 27.3, Monocytes (%) (Auto) 9.8, Eosinophils (%) (Auto) 2.6, Basophils ( %) (Auto) 1.1, Sodium Level 143, Potassium Level 3.3L, Chloride Level 107, Carbon Dioxide Level 28, Anion Gap 8, Blood Urea Nitrogen 20H, Creatinine 0.8, Estimat Glomerular Filtration Rate > 60, Glucose Level 181H, Calcium Level 9.1 Height (Feet): 5 Height (Inches): 9.00 Weight (Pounds): 160 General Appearance: lethargic EENT: normal ENT inspection Neck: normal alignment Cardiovascular: normal rate, regular rhythm Respiratory/Chest: no accessory muscle use Extremities: normal inspection Skin: normal pigmentation Tone Dietz DO Jan 23, 2020 09:30
--- NOTE | 2020-01-23 10:34 | Pulmonology Progress Note ---
Assessment/Plan Assessment/Plan IMPRESSION: 1. Right lung pneumonia. 2. half-way resident. DISCUSSION: Continue abx O2 prn; Is COVID 19 negative Currently on RA Pulmonary hygiene Will follow Miguel Roche M.D. Subjective Interval Events: None new Constitutional: Reports: no symptoms HEENT: Repors: no symptoms Respiratory: Reports: no symptoms Cardiovascular: Reports: no symptoms Allergies: Coded Allergies: No Known Allergies (Unverified , 04/08/16) Objective Last 24 Hour Vital Signs Date Time Temp Pulse Resp B/P (MAP) Pulse Ox O2 Delivery O2 Flow Rate FiO2 01/23/20 09:00 Room Air 01/23/20 04:00 97.1 65 18 122/78 (93) 95 01/23/20 04:00 77 01/23/20 00:00 80 01/23/20 00:00 97.2 71 18 119/74 (89) 95 01/22/20 21:00 Room Air 01/22/20 20:00 97.2 69 18 157/64 (95) 98 01/22/20 16:00 68 01/22/20 16:00 98.1 75 20 141/65 (90) 100 01/22/20 12:00 97.9 108 19 124/76 (92) 97 01/22/20 11:41 66 Intake and Output 01/22/20 01/23/20 19:00 07:00 Intake Total 200 ml 100 ml Output Total 55 ml Balance 145 ml 100 ml Intake Free Water 200 ml 100 ml Output Urine Total 55 ml # Voids 4 1 # Bowel Movements 3 1 General Appearance: no acute distress HEENT: normocephalic Respiratory/Chest: chest wall non-tender, lungs clear Cardiovascular: normal peripheral pulses Abdomen: normal bowel sounds Microbiology Date/Time Source Procedure Growth Status 01/20/20 12:50 Stool Clostridium difficile Toxin Assay - Final Complete Laboratory Tests 01/23/20 07:25: White Blood Count 6.2, Red Blood Count 3.09L, Hemoglobin 9.4L, Hematocrit 26.5L , Mean Corpuscular Volume 86, Mean Corpuscular Hemoglobin 30.6, Mean Corpuscular Hemoglobin Concent 35.6, Red Cell Distribution Width 12.6, Platelet Count 174, Mean Platelet Volume 6.7, Neutrophils (%) (Auto) 59.3, Lymphocytes (% ) (Auto) 27.3, Monocytes (%) (Auto) 9.8, Eosinophils (%) (Auto) 2.6, Basophils ( %) (Auto) 1.1, Sodium Level 143, Potassium Level 3.3L, Chloride Level 107, Carbon Dioxide Level 28, Anion Gap 8, Blood Urea Nitrogen 20H, Creatinine 0.8, Estimat Glomerular Filtration Rate > 60, Glucose Level 181H, Calcium Level 9.1 Current Medications Medications (Trade) Dose Ordered Sig/Angel Route PRN Reason Start Time Stop Time Status Last Admin Dose Admin Acetaminophen (Tylenol) 650 mg Q4H PRN ORAL Mild Pain (Pain Scale 1-3) 01/20/20 23:00 02/18/20 18:59 Dextrose (Dextrose 50%) 25 ml Q30M PRN IV Hypoglycemia 01/20/20 20:00 04/18/20 18:59 Dextrose (Dextrose 50%) 50 ml Q30M PRN IV Hypoglycemia 01/20/20 20:00 04/18/20 18:59 Heparin Sodium (Porcine) (Heparin 5000 units/ml) 5,000 units EVERY 12 HOURS SUBQ 01/20/20 21:00 03/04/20 20:59 01/23/20 09:27 Insulin Aspart (NovoLOG) EVERY 6 HOURS SUBQ 01/21/20 00:00 04/18/20 20:59 Memantine (Namenda) 5 mg EVERY 12 HOURS GT 01/20/20 21:00 02/19/20 17:59 01/23/20 09:22 Piperacillin Sod/ Tazobactam Sod 3.375 gm/Sodium Chloride 110 ml @ 27.5 mls/hr Q8HR IVPB 01/22/20 14:00 01/26/20 21:59 01/23/20 05:44 Potassium Chloride/Sodium Chloride 1,000 ml @ 50 mls/hr Q20H IV 01/20/20 19:45 02/18/20 20:59 01/23/20 09:22 Vancomycin HCl (Vanco rx to dose) 1 ea DAILY PRN MISC Per rx protocol 01/21/20 09:00 02/18/20 18:29 Vancomycin HCl 1 gm/Dextrose 275 ml @ 183.708 mls/hr Q12H IVPB 01/21/20 03:00 01/25/20 02:59 01/23/20 03:41 Miguel Roche MD Jan 23, 2020 10:34
[2020-01-23 12:00] VITALS: BP 146/64
--- NOTE | 2020-01-23 12:07 | Infectious Diseases Prog Note ---
Assessment/Plan Assessment/Plan Afebrile No leukocytosis Mild transaminitis PNA r/o probable COVID 01/18 SARS-COV 2 PCR neg (1st sample) flu swab neg CXR: Nodular and reticular right basilar opacities. Nonspecific, could indicate acute inflammation versus chronic postinflammatory changes, among many other possibilities. Gram positive bacteremia-?contaminant 01/18 BCx: 1/ GPR; 01/21 Bcx NTD Multiple pressure injuries but healing, no evidence of infection QTc 435 MRSA nares positive Psych disorder COPD BPH DM Seizure disorder dementia HTN GERD anemia G tube suprapubic catheter, SP exchange 12/28 Plan: zosyn and vanc #2 SP ceftriaxone and azithromycin #1 f/u urine legionella f/u mycoplasma IgM f/u COVID test x2 f/u sputum cx f/u BCx COVID isolation monitor temp and CBC monitor resp status will not obtain urine specimen at this time. suprapubic samples usually are contaminated. pls do not DC isolation without ID approval RALPH RN Subjective Allergies: Coded Allergies: No Known Allergies (Unverified , 04/08/16) Subjective afebrile bacteremic; repeat bcx p no leukocytosis Objective Vital Signs Last 24 Hour Vital Signs Date Time Temp Pulse Resp B/P (MAP) Pulse Ox O2 Delivery O2 Flow Rate FiO2 01/23/20 09:00 Room Air 01/23/20 08:00 97.7 68 20 149/80 (103) 100 01/23/20 08:00 71 01/23/20 04:00 97.1 65 18 122/78 (93) 95 01/23/20 04:00 77 01/23/20 00:00 80 01/23/20 00:00 97.2 71 18 119/74 (89) 95 01/22/20 21:00 Room Air 01/22/20 20:00 97.2 69 18 157/64 (95) 98 01/22/20 16:00 68 01/22/20 16:00 98.1 75 20 141/65 (90) 100 01/22/20 12:00 97.9 108 19 124/76 (92) 97 Height (Feet): 5 Height (Inches): 9.00 Weight (Pounds): 160 Objective General Appearance: no acute distress, cachetic Respiratory/Chest: no respiratory distress, no accessory muscle use Abdomen: soft, non tender, non distended Musculoskeletal: atrophy Microbiology Date/Time Source Procedure Growth Status 01/20/20 12:50 Stool Clostridium difficile Toxin Assay - Final Complete Laboratory Tests Test 01/23/20 07:25 White Blood Count 6.2 K/UL (4.8-10.8) Red Blood Count 3.09 M/UL (4.70-6.10) L Hemoglobin 9.4 G/DL (14.2-18.0) L Hematocrit 26.5 % (42.0-52.0) L Mean Corpuscular Volume 86 FL (80-99) Mean Corpuscular Hemoglobin 30.6 PG (27.0-31.0) Mean Corpuscular Hemoglobin Concent 35.6 G/DL (32.0-36.0) Red Cell Distribution Width 12.6 % (11.6-14.8) Platelet Count 174 K/UL (150-450) Mean Platelet Volume 6.7 FL (6.5-10.1) Neutrophils (%) (Auto) 59.3 % (45.0-75.0) Lymphocytes (%) (Auto) 27.3 % (20.0-45.0) Monocytes (%) (Auto) 9.8 % (1.0-10.0) Eosinophils (%) (Auto) 2.6 % (0.0-3.0) Basophils (%) (Auto) 1.1 % (0.0-2.0) Sodium Level 143 MMOL/L (136-145) Potassium Level 3.3 MMOL/L (3.5-5.1) L Chloride Level 107 MMOL/L (98-107) Carbon Dioxide Level 28 MMOL/L (21-32) Anion Gap 8 mmol/L (5-15) Blood Urea Nitrogen 20 mg/dL (7-18) H Creatinine 0.8 MG/DL (0.55-1.30) Estimat Glomerular Filtration Rate > 60 mL/min (>60) Glucose Level 181 MG/DL (74-106) H Calcium Level 9.1 MG/DL (8.5-10.1) Current Medications Medications (Trade) Dose Ordered Sig/Angel Route PRN Reason Start Time Stop Time Status Last Admin Dose Admin Acetaminophen (Tylenol) 650 mg Q4H PRN ORAL Mild Pain (Pain Scale 1-3) 01/20/20 23:00 02/18/20 18:59 Dextrose (Dextrose 50%) 25 ml Q30M PRN IV Hypoglycemia 01/20/20 20:00 04/18/20 18:59 Dextrose (Dextrose 50%) 50 ml Q30M PRN IV Hypoglycemia 01/20/20 20:00 04/18/20 18:59 Heparin Sodium (Porcine) (Heparin 5000 units/ml) 5,000 units EVERY 12 HOURS SUBQ 01/20/20 21:00 03/04/20 20:59 01/23/20 09:27 Insulin Aspart (NovoLOG) EVERY 6 HOURS SUBQ 01/21/20 00:00 04/18/20 20:59 Memantine (Namenda) 5 mg EVERY 12 HOURS GT 01/20/20 21:00 02/19/20 17:59 01/23/20 09:22 Piperacillin Sod/ Tazobactam Sod 3.375 gm/Sodium Chloride 110 ml @ 27.5 mls/hr Q8HR IVPB 01/22/20 14:00 01/26/20 21:59 01/23/20 05:44 Potassium Chloride/Sodium Chloride 1,000 ml @ 50 mls/hr Q20H IV 01/20/20 19:45 02/18/20 20:59 01/23/20 09:22 Vancomycin HCl (Vanco rx to dose) 1 ea DAILY PRN MISC Per rx protocol 01/21/20 09:00 02/18/20 18:29 Vancomycin HCl 1 gm/Dextrose 275 ml @ 183.708 mls/hr Q12H IVPB 01/21/20 03:00 01/25/20 02:59 01/23/20 03:41 Laura Swartz M.D. Jan 23, 2020 12:07
--- NOTE | 2020-01-23 12:37 | CDS Physician Query ---
Clarification is required for compliance, coding accuracy, and to reflect severity of illness for this patient Dear Dr. Tone Dietz Date: 01/23/2020 CDS name: Magali Price Clinical Documentation: HNP: CHIEF COMPLAINT: Cough, congestion, right basilar pneumonia, sacral decubitus....69-year-old male from Nursing Facility presented with above-mentioned diagnoses. Labs/Microbiology: Nasopharyngeal Covid not detected, Nasal MRSA culture positive Treatment: IV vancomycin, pip-tazo Please specify the etiology of the Pneumonia: [] MRSA [] Gram +Positive Organism(s) [] Anaerobes [] Gram -Negative Organism(s) [] Aspiration [] Pseudomonas [] Mycoplasma [] Not Applicable [] Other organism(s). Please specify: Present on Admission: [] Yes [] No [] Clinically Undetermined Physician signature Date Please also document in your Progress Notes and/or Discharge Summary and indicate if the condition was present on admission. JUN
--- NOTE | 2020-01-23 13:02 | Surgery Progress Note ---
Surgery Progress Note Subjective Additional Comments no acute events exam stable labs improved comfortable Objective Last 24 Hour Vital Signs Date Time Temp Pulse Resp B/P (MAP) Pulse Ox O2 Delivery O2 Flow Rate FiO2 01/23/20 09:00 Room Air 01/23/20 08:00 97.7 68 20 149/80 (103) 100 01/23/20 08:00 71 01/23/20 04:00 97.1 65 18 122/78 (93) 95 01/23/20 04:00 77 01/23/20 00:00 80 01/23/20 00:00 97.2 71 18 119/74 (89) 95 01/22/20 21:00 Room Air 01/22/20 20:00 97.2 69 18 157/64 (95) 98 01/22/20 16:00 68 01/22/20 16:00 98.1 75 20 141/65 (90) 100 I&O Intake and Output 01/22/20 01/23/20 19:00 07:00 Intake Total 200 ml 100 ml Output Total 55 ml Balance 145 ml 100 ml Intake Free Water 200 ml 100 ml Output Urine Total 55 ml # Voids 4 1 # Bowel Movements 3 1 Dressing: saturated Wound: clean Cardiovascular: RSR Respiratory: clear, decreased breath sounds Abdomen: soft, non-tender, present bowel sounds Extremities: no tenderness, no cyanosis Laboratory Tests Test 01/23/20 07:25 White Blood Count 6.2 K/UL (4.8-10.8) Red Blood Count 3.09 M/UL (4.70-6.10) L Hemoglobin 9.4 G/DL (14.2-18.0) L Hematocrit 26.5 % (42.0-52.0) L Mean Corpuscular Volume 86 FL (80-99) Mean Corpuscular Hemoglobin 30.6 PG (27.0-31.0) Mean Corpuscular Hemoglobin Concent 35.6 G/DL (32.0-36.0) Red Cell Distribution Width 12.6 % (11.6-14.8) Platelet Count 174 K/UL (150-450) Mean Platelet Volume 6.7 FL (6.5-10.1) Neutrophils (%) (Auto) 59.3 % (45.0-75.0) Lymphocytes (%) (Auto) 27.3 % (20.0-45.0) Monocytes (%) (Auto) 9.8 % (1.0-10.0) Eosinophils (%) (Auto) 2.6 % (0.0-3.0) Basophils (%) (Auto) 1.1 % (0.0-2.0) Sodium Level 143 MMOL/L (136-145) Potassium Level 3.3 MMOL/L (3.5-5.1) L Chloride Level 107 MMOL/L (98-107) Carbon Dioxide Level 28 MMOL/L (21-32) Anion Gap 8 mmol/L (5-15) Blood Urea Nitrogen 20 mg/dL (7-18) H Creatinine 0.8 MG/DL (0.55-1.30) Estimat Glomerular Filtration Rate > 60 mL/min (>60) Glucose Level 181 MG/DL (74-106) H Calcium Level 9.1 MG/DL (8.5-10.1) Plan Problems: (1) Decubitus skin ulcer Assessment & Plan: Patient presented on admission with contractures, multiple areas of hyperpigmentation from previous pressure injuries. Hyperpigmentation noted to Sacrum, R and L trochanteric, dorso/lateral R foot and distal/lateral R foot and R heel. Both heels are soft but blanchable. Scrotum and perineum are erythematous but dry An area of erythema noted to medial upper R thigh. Tx.Plan: Apply Moisture Barrier Paste to sacrum. Cover with Optifoam drsg. Change every 3 days and prn. Apply Moisture Barrier Paste to scrotum, Bilat groin and both ischial tuberosities with each incontinence care. Apply Cavilon Skin Barrier to R and L trochanteric areas,Both heels and lateral aspects of both feet. Cover each area with Optifoam drsg.Change every 7 days and prn. Apply Cavilon Skin Barrier to both heels. Cover each heel with Optifoam drsg. Change every 7 days and prn. Reposition at least every 2hours or as tolerated. Place pillow between knees. Off-load heels with pillow. APM/Paty Mattress overlay. Nutritional optimization (2) Malnutrition Assessment & Plan: DAILY ESTIMATED NEEDS: Needs based on DM, LAMINATION TECHNICIAN TF, sepsis/ 73kg 22-28 kcals/kg 8591-4559 total kcals 1-2 g protein/kg 73-146 g total protein 25-30 mL/kg 7216-9829 total fluid mLs NUTRITION DIAGNOSIS: Swallowing difficulty R/T dysphagia as evidenced by PEG dep. CURRENT TF:Glucerna 1.2 @ 65ml/hr x 24 hrs ENTERAL NUTRITION RECOMMENDATIONS: Glucerna 1.2 @ 65ml/hr x 24 hrs to provide 1560ml, 1872kcal, 94g prot, 1256ml free water * Maintain current TF -> meets 100% est kcal/prot needs * HOB over 30 degrees/ water flush per MD ADDITIONAL RECOMMENDATIONS: * Calibrated bedscale wt for accurate CBW * Consider adding PARISA BID via PEG for skin integrity * Monitor lytes, replete as needed * Monitor BGs, need for additional hypoglycemics (3) Pneumonia (4) COPD (chronic obstructive pulmonary disease) (5) Anemia (6) Cellulitis Assessment & Plan: perirectal cellulitis from incontinence incontinence associated dermatitis care instructions given will monitor improving (7) Diabetes (8) Encephalopathy (9) HTN (hypertension) (10) BPH (benign prostatic hyperplasia) (11) Mandibular pain Christiano Castelan Jan 23, 2020 13:02
--- NOTE | 2020-01-23 13:09 | CDS Physician Query ---
Clarification is required for compliance, coding accuracy, and to reflect severity of illness for this patient. Dear Dr. Tone Dietz Date: 01/23/2020 CDS Name: Magali Price Clinical Documentation: HNP: 69-year-old male from Nursing Facility...Right basilar pneumonia...Malnutrition RD note: Swallowing difficulty R/T dysphagia as evidenced by PEG dep...Glucerna 1.2 @ 65ml/hr x 24 hrs BMI 23.6, Albumin 3.2 In order to accurately code this and to reflect the appropriate severity of ilness, please clarify diagnosis. [] Mild Malnutrition [] Moderate Malnutrition [] Severe Malnutrition [] Unknown degree [] Other: [] Clinically Undetermined Present on Admission: [] Yes [] No [] Clinically Undetermined Physician signature Date Please also document in your Progress Notes and/or Discharge Summary and indicate if the condition was present on admission. JUN
--- NOTE | 2020-01-23 13:30 | Progress Note ---
DATE: 01/23/2020 SUBJECTIVE: The patient is a 69-year-old male. He is confused and disorganized. His mood labile. This patient is currently in the hospital secondary to pneumonia, rule out COVID. He has altered mental status, confusion, decline in cognition below his baseline. That is why, his attending has requested daily psychiatric consultation. DIAGNOSIS: Major depressive disorder, mild, recurrent with psychotic features, rule out dementia with psychosis. PLAN: Continue titrating up on his medications to stabilize his mood. A 20 minutes of cognitive behavioral therapy to help him identify his automatic negative thoughts, help him convert his negative thoughts to more positive thoughts to reduce depression, anxiety, and mood lability. Chart reviewed. Discussed with staff. Seen and assessed in his room. Letty Mcgowan M.D. DR: BRYCE JOB#: [id number] CC:
--- NOTE | 2020-01-23 13:46 | CDS Physician Query ---
Clarification is required for compliance, coding accuracy, and to reflect severity of illness for this patient Dear Dr. Tone Dietz Date: 01/23/2020 Custom Ski Maker/CDS Name: Magali Price Clinical Documentation: HNP: 69-year-old male from Nursing Facility...Right basilar pneumonia, Sacral decubitus, Sepsis, COVID pending, Malnutrition. ED note: Patient unable to provide any history due to baseline altered mental status...with lower extremity contractures. Does move upper extremities bilaterally, patient not oriented. 01/22 progress note: Encephalopathy Labs on admit: Sodium 132, WBC 8.6 Kindly specify the type of Encephalopathy. PHYSICIAN RESPONSE: [] Metabolic Encephalopathy [] Septic encephalopathy with sepsis [] Dementia with delirium [] Other: [] Unknown Present on Admission: [] Yes [] No [] Clinically Undetermined Physician signature Date Please also document in your Progress Notes and/or Discharge Summary and indicate if the condition was present on admission. JUN
--- NOTE | 2020-01-23 15:59 | Consultation ---
DATE OF CONSULTATION: 01/23/2020 CHIEF COMPLAINT: Anemia. Most of history per chart. HISTORY OF PRESENT ILLNESS: senior living patient was admitted to the hospital with possible COVID positive. The patient had evidence of pneumonia, admitted with shortness of breath, and cough. The patient was found to be anemic so GI consultation requested for evaluation. The patient has history of diabetes, G-tube placement dysphagia and also suprapubic catheter. PAST MEDICAL HISTORY: 1. History of pneumonia. 2. COPD. 3. Anemia. 4. Diabetes. 5. Hypertension. 6. Dysphagia requiring G-tube placement. 7. History of chronic suprapubic catheter placement. ALLERGIES: No known drug allergies. MEDICATIONS: Please see medication reconciliation list. FAMILY HISTORY: Noncontributory. SOCIAL HISTORY: Currently lives in a shelter. No history of tobacco, alcohol, drug abuse. REVIEW OF SYSTEMS: Unable to obtain. PHYSICAL EXAMINATION: VITAL SIGNS: Temperature is 97.1, pulse 65, respirations 18, blood pressure is 122/78. HEENT: Normocephalic and atraumatic. Sclerae anicteric. NECK: Supple. No evidence of obvious lymphadenopathy. CARDIOVASCULAR: Regular rate and rhythm. Plus S1 and S2. LUNGS: Decreased breath sounds bilaterally diffusely right more than left. ABDOMEN: Soft, nontender. G-tube in place. No rebound. No guarding. No peritoneal sign. EXTREMITIES: No cyanosis. No clubbing. LABORATORY DATA: White count 6.2, hemoglobin 9.4, hematocrit 26, and platelet count is 174. Sodium 143, potassium 3.3, BUN 20, creatinine is 0.8, glucose 181. ASSESSMENT: A 69-year-old male with anemia, dysphagia, pneumonia, possible COVID, suprapubic catheter placement. PLAN: Anemia workup. G-tube feeding, diabetes, tight control. Consider GI procedures if needed and if the patient is COVID negative antibiotics per ID. Pulmonary care. I want to thank, Dr. Tone Dietz, for this kind referral. Ernie Bloom M.D. DR: Zaida JOB#: [id number] CC: Tone Dietz D.O.
[2020-01-23 16:00] VITALS: BP 153/81
--- NOTE | 2020-01-23 16:18 | NUR ---
CASE MANAGEMENT:REVIEW 01/23/20 SI: PNEUMONIA. COPD COVID 19 NEGATIVE 97.7 68 20 149/80 100% ON RA K-3.3 IS: IV ZOSYN Q8HRS IV VANCOMYCIN Q12 IVF+KCL@50/HR : TELEMETRY STATUS DCP: FROM [facility] IN [place]
--- NOTE | 2020-01-23 17:00 | NUR ---
NURSE NOTES: Wound care performed. Per armored car driver Gisela, no change noted to wounds.
--- NOTE | 2020-01-23 19:57 | NUR ---
HAND-OFF: Report given to Juliana TAVAREZ. Patient stable. Plan of care endorsed.
[2020-01-23 20:00] VITALS: BP_SYST 155; BP_SYST 160; BP_DIAS 75; BP_DIAS 85
--- NOTE | 2020-01-23 20:42 | NUR ---
NURSE NOTES: Received report from CORBY Montoya. Patient AO x 1. Shows no signs of distress or pain at the time. IV checked and flushed and patents. There are no signs of erythema, infiltration, or bleeding. Bed is in the lowest position, call light is within reach, bed alarm on. Will continue plan of care.
[2020-01-24] VITALS: BP 155/65
[2020-01-24] MEDS: Vancomycin 1 GM in D5W 275 ML IVPB SCH ×2 (03:12→14:47)
[2020-01-24 04:00] VITALS: BP 151/71
[2020-01-24] MEDS: NS w/KCl 20mEq 1000ml 1,000 ML IV SCH ×2 (04:50→22:37)
[2020-01-24] MEDS: NovoLOG Insulin Flexpen SUBQ SCH ×5 (05:53→23:54)
[2020-01-24] MEDS: Piperacillin/Tazobactam 3.375 GM in NS 110 ML IVPB SCH ×3 (06:01→21:47)
--- NOTE | 2020-01-24 07:45 | NUR ---
NURSE NOTES: Received report from CORBY Andrews. Patient is AO x 1. with no signs of distress or pain noted at this time. IV checked and flushed and patents. There are no signs of erythema, infiltration, or bleeding. Bed is in the lowest position, call light is within reach, bed alarm on. Will continue with the plan of care.
--- NOTE | 2020-01-24 07:45 | NUR ---
HAND-OFF: Report given to CORBY Montoya. Patient shows no signs of distress or pain at the time. Endorsed plan of care. Addendum: 01/24/20 at 0747 by Juliana Echols RN Report given to CORBY Solano
[2020-01-24 08:00] VITALS: BP 157/67
--- NOTE | 2020-01-24 08:27 | General Progress Note ---
Assessment/Plan Status: unchanged Assessment/Plan: 1. History of pneumonia. 2. COPD. 3. Anemia. 4. Diabetes. 5. Hypertension. 6. Dysphagia requiring G-tube placement. 7. History of chronic suprapubic catheter placement. fu H&H prn blood transfusion fu stool ob GTF GI procedures if needed Subjective ROS Limited/Unobtainable: No Allergies: Coded Allergies: No Known Allergies (Unverified , 04/08/16) Objective Last 24 Hour Vital Signs Date Time Temp Pulse Resp B/P (MAP) Pulse Ox O2 Delivery O2 Flow Rate FiO2 01/24/20 04:00 98.4 63 24 151/71 (97) 100 01/24/20 03:39 87 01/24/20 00:00 98.7 67 20 155/65 (95) 100 01/23/20 23:29 55 01/23/20 21:00 Room Air 01/23/20 20:00 99.0 89 24 160/85 (110) 100 01/23/20 20:00 97.6 67 20 155/75 (101) 100 01/23/20 16:00 97.6 70 20 153/81 (105) 100 01/23/20 16:00 75 01/23/20 12:00 59 01/23/20 12:00 97.7 72 20 146/64 (91) 100 01/23/20 09:00 Room Air Intake and Output 01/23/20 01/24/20 19:00 07:00 Intake Total 1747.500 ml 490 ml Balance 1747.500 ml 490 ml Intake Free Water 200 ml 100 ml IV Total 767.500 ml Tube Feeding 780 ml 390 ml # Voids 6 2 # Bowel Movements 4 1 Laboratory Tests 01/24/20 05:30: Stool Occult Blood [Pending] Height (Feet): 5 Height (Inches): 9.00 Weight (Pounds): 160 General Appearance: no apparent distress EENT: normal ENT inspection Neck: supple Cardiovascular: normal rate Respiratory/Chest: decreased breath sounds Abdomen: normal bowel sounds, non tender, soft Extremities: non-tender Ernie Bloom MD Jan 24, 2020 08:27
[2020-01-24] MEDS: Memantine 5 MG TAB GT SCH ×2 (08:28→21:47)
[2020-01-24] MEDS: Heparin 5000 units/ml inj SUBQ SCH ×2 (08:29→21:52)
[2020-01-24 08:56] LABS: BASOPHILS % (AUTO) 0.8 % (0.0-2.0); EOSINOPHILS % (AUTO) 3.1 % (0.0-3.0); HEMATOCRIT 25.7 % (42.0-52.0); HEMOGLOBIN 9.1 G/DL (14.2-18.0); MEAN CORPUSCULAR VOLUME 86 FL (80-99); MONOCYTES % (AUTO) 8.6 % (1.0-10.0); NEUTROPHILS % (AUTO) 64.5 % (45.0-75.0); PLATELET COUNT 167 K/UL (150-450); RED CELL DISTRIBUTION WIDTH 12.4 % (11.6-14.8)
[2020-01-24 09:11] LABS: ALANINE AMINOTRANSFERASE 33 U/L (12-78); ALBUMIN 2.7 G/DL (3.4-5.0); ALBUMIN/GLOBULIN RATIO 0.6 (1.0-2.7); ALKALINE PHOSPHATASE 111 U/L (46-116); ANION GAP 9 mmol/L (5-15); ASPARTATE AMINO TRANSFERASE 17 U/L (15-37); BILIRUBIN,TOTAL 0.2 MG/DL (0.2-1.0); BLOOD UREA NITROGEN 13 mg/dL (7-18); CALCIUM 8.5 MG/DL (8.5-10.1); CARBON DIOXIDE 28 MMOL/L (21-32); CHLORIDE 108 MMOL/L (98-107); CREATININE 0.8 MG/DL (0.55-1.30); POTASSIUM 3.4 MMOL/L (3.5-5.1); SODIUM 144 MMOL/L (136-145)
--- NOTE | 2020-01-24 09:13 | NUR ---
RD ASSESSMENT & RECOMMENDATIONS SEE CARE ACTIVITY FOR COMPLETE ASSESSMENT DAILY ESTIMATED NEEDS: Needs based on DM, [employer] TF, sepsis/ 53.6kg 25-35 kcals/kg 0147-2571 total kcals 1-2 g protein/kg 73-146 g total protein 25-30 mL/kg 0818-2133 total fluid mLs NUTRITION DIAGNOSIS: Swallowing difficulty R/T dysphagia as evidenced by PEG dep. (CURRENT TF: Glucerna 1.2 @ 390ml QID bolus) ENTERAL NUTRITION RECOMMENDATIONS: Glucerna 1.2 @ 335ml QID to provide 1340ml, 1608kcal, 80g prot, 1079ml free water * Rec to REDUCE current bolus feeds to 335ml qid based on updated HT and WT per SNF records to meet 100% est kcal/prot needs * HOB over 30 degrees/ water flush per MD ADDITIONAL RECOMMENDATIONS: * Calibrated bedscale wt for accurate CBW * Consider adding PARISA BID via PEG for skin integrity * Monitor lytes, replete as needed (K low, on repletion) * Monitor BGs, need for additional hypoglycemics -> good glycemic control -> rec to increase bedside BG testing while on bolus feeds, check q3hrs * Per SNF records (01/16/20): WT 118 lbs/ 53.6kg HT 63 inches/ 5'3"
[2020-01-24 09:27] LABS: % IRON SATURATION 37 % (15-50); IRON 76 ug/dL (50-175); TOTAL IRON BINDING CAPACITY 207 ug/dL (250-450)
--- NOTE | 2020-01-24 11:30 | Pulmonology Progress Note ---
Assessment/Plan Assessment/Plan IMPRESSION: 1. Right lung pneumonia. 2. [facility] resident. DISCUSSION: Continue abx O2 prn; Is COVID 19 negative Currently on RA Pulmonary hygiene Will follow Miguel Roche M.D. Subjective Interval Events: none new Constitutional: Reports: no symptoms HEENT: Repors: no symptoms Respiratory: Reports: no symptoms Cardiovascular: Reports: no symptoms Gastrointestinal/Abdominal: Reports: no symptoms Allergies: Coded Allergies: No Known Allergies (Unverified , 04/08/16) Objective Last 24 Hour Vital Signs Date Time Temp Pulse Resp B/P (MAP) Pulse Ox O2 Delivery O2 Flow Rate FiO2 01/24/20 09:00 Room Air 01/24/20 08:00 64 01/24/20 08:00 98.5 64 20 157/67 (97) 100 01/24/20 04:00 98.4 63 24 151/71 (97) 100 01/24/20 03:39 87 01/24/20 00:00 98.7 67 20 155/65 (95) 100 01/23/20 23:29 55 01/23/20 21:00 Room Air 01/23/20 20:00 99.0 89 24 160/85 (110) 100 01/23/20 20:00 97.6 67 20 155/75 (101) 100 01/23/20 16:00 97.6 70 20 153/81 (105) 100 01/23/20 16:00 75 01/23/20 12:00 59 01/23/20 12:00 97.7 72 20 146/64 (91) 100 Intake and Output 01/23/20 01/24/20 19:00 07:00 Intake Total 1747.500 ml 490 ml Balance 1747.500 ml 490 ml Intake Free Water 200 ml 100 ml IV Total 767.500 ml Tube Feeding 780 ml 390 ml # Voids 6 2 # Bowel Movements 4 1 General Appearance: no acute distress HEENT: normocephalic Respiratory/Chest: chest wall non-tender, lungs clear Cardiovascular: normal peripheral pulses Abdomen: normal bowel sounds Microbiology Date/Time Source Procedure Growth Status 01/22/20 13:12 Blood Blood Culture - Preliminary NO GROWTH AFTER 24 HOURS Resulted 01/22/20 13:10 Blood Blood Culture - Preliminary NO GROWTH AFTER 24 HOURS Resulted Laboratory Tests 01/24/20 05:30: Stool Occult Blood [Pending] 01/24/20 07:50: White Blood Count 7.0, Red Blood Count 3.00L, Hemoglobin 9.1L, Hematocrit 25.7L , Mean Corpuscular Volume 86, Mean Corpuscular Hemoglobin 30.5, Mean Corpuscular Hemoglobin Concent 35.6, Red Cell Distribution Width 12.4, Platelet Count 167, Mean Platelet Volume 6.6, Neutrophils (%) (Auto) 64.5, Lymphocytes (% ) (Auto) 23.0, Monocytes (%) (Auto) 8.6, Eosinophils (%) (Auto) 3.1H, Basophils (%) (Auto) 0.8, Sodium Level 144, Potassium Level 3.4L, Chloride Level 108H, Carbon Dioxide Level 28, Anion Gap 9, Blood Urea Nitrogen 13, Creatinine 0.8, Estimat Glomerular Filtration Rate > 60, Glucose Level 138H, Calcium Level 8.5, Iron Level 76, Total Iron Binding Capacity 207L, Percent Iron Saturation 37, Unsaturated Iron Binding 131, Total Bilirubin 0.2, Aspartate Amino Transf (AST/ SGOT) 17, Alanine Aminotransferase (ALT/SGPT) 33, Alkaline Phosphatase 111, Total Protein 7.5, Albumin 2.7L, Globulin 4.8, Albumin/Globulin Ratio 0.6L, Vitamin B12 Level 950, Folate 39.1 Current Medications Medications (Trade) Dose Ordered Sig/Angel Route PRN Reason Start Time Stop Time Status Last Admin Dose Admin Acetaminophen (Tylenol) 650 mg Q4H PRN ORAL Mild Pain (Pain Scale 1-3) 01/20/20 23:00 02/18/20 18:59 Dextrose (Dextrose 50%) 25 ml Q30M PRN IV Hypoglycemia 01/20/20 20:00 04/18/20 18:59 Dextrose (Dextrose 50%) 50 ml Q30M PRN IV Hypoglycemia 01/20/20 20:00 04/18/20 18:59 Heparin Sodium (Porcine) (Heparin 5000 units/ml) 5,000 units EVERY 12 HOURS SUBQ 01/20/20 21:00 03/04/20 20:59 01/24/20 08:29 Insulin Aspart (NovoLOG) EVERY 6 HOURS SUBQ 01/21/20 00:00 04/18/20 20:59 Memantine (Namenda) 5 mg EVERY 12 HOURS GT 01/20/20 21:00 02/19/20 17:59 01/24/20 08:28 Piperacillin Sod/ Tazobactam Sod 3.375 gm/Sodium Chloride 110 ml @ 27.5 mls/hr Q8HR IVPB 01/22/20 14:00 01/26/20 21:59 01/24/20 06:01 Potassium Chloride/Sodium Chloride 1,000 ml @ 50 mls/hr Q20H IV 01/20/20 19:45 02/18/20 20:59 01/24/20 04:50 Vancomycin HCl (Vanco rx to dose) 1 ea DAILY PRN MISC Per rx protocol 01/21/20 09:00 02/18/20 18:29 Vancomycin HCl 1 gm/Dextrose 275 ml @ 183.708 mls/hr Q12H IVPB 01/21/20 03:00 01/25/20 02:59 01/24/20 03:12 Miguel Roche MD Jan 24, 2020 11:30
--- NOTE | 2020-01-24 11:39 | Diagnostic Imaging Report ---
Indication: Shortness of Technique: One view of the chest Comparison: 01/19/2020 Findings: There is decreased reticular nodular infiltrate at the right lung base as compared to prior study. No new infiltrates. The remaining lungs pleural spaces are clear. The heart size is normal. A surgical clip projects at the aortopulmonary window Impression: Decreased right basilar infiltrate, over 5 days.
--- NOTE | 2020-01-24 11:48 | NUR ---
RADIOLOGY DEPT., CHEST X-RAY DONE.-P.DYE
--- NOTE | 2020-01-24 11:53 | General Progress Note ---
Assessment/Plan Problem List: (1) Suspected COVID-19 virus infection ICD Codes: R68.89 - Other general symptoms and signs SNOMED: 723864931 (2) Pneumonia ICD Codes: J18.9 - Pneumonia, unspecified organism SNOMED: 758893471 (3) COPD (chronic obstructive pulmonary disease) ICD Codes: J44.9 - Chronic obstructive pulmonary disease, unspecified SNOMED: 35876880 (4) Anemia ICD Codes: D64.9 - Anemia, unspecified SNOMED: 733179060 (5) Diabetes ICD Codes: E11.9 - Type 2 diabetes mellitus without complications SNOMED: 40315328 (6) Encephalopathy ICD Codes: G93.40 - Encephalopathy, unspecified SNOMED: 54459662, 606878822 (7) HTN (hypertension) ICD Codes: I10 - Essential (primary) hypertension SNOMED: 86867842 (8) Decubitus skin ulcer ICD Codes: L89.90 - Pressure ulcer of unspecified site, unspecified stage SNOMED: 125620087 (9) Malnutrition ICD Codes: E46 - Unspecified protein-calorie malnutrition SNOMED: 89097654 Status: unchanged Assessment/Plan: o2 pulm tx abx pt diet eval cbc bmp am Subjective Constitutional: Reports: weakness Allergies: Coded Allergies: No Known Allergies (Unverified , 04/08/16) All Systems: reviewed and negative except above Subjective o2nc sleeping Objective Last 24 Hour Vital Signs Date Time Temp Pulse Resp B/P (MAP) Pulse Ox O2 Delivery O2 Flow Rate FiO2 01/24/20 09:00 Room Air 01/24/20 08:00 64 01/24/20 08:00 98.5 64 20 157/67 (97) 100 01/24/20 04:00 98.4 63 24 151/71 (97) 100 01/24/20 03:39 87 01/24/20 00:00 98.7 67 20 155/65 (95) 100 01/23/20 23:29 55 01/23/20 21:00 Room Air 01/23/20 20:00 99.0 89 24 160/85 (110) 100 01/23/20 20:00 97.6 67 20 155/75 (101) 100 01/23/20 16:00 97.6 70 20 153/81 (105) 100 01/23/20 16:00 75 01/23/20 12:00 59 01/23/20 12:00 97.7 72 20 146/64 (91) 100 Intake and Output 01/23/20 01/24/20 19:00 07:00 Intake Total 1747.500 ml 490 ml Balance 1747.500 ml 490 ml Intake Free Water 200 ml 100 ml IV Total 767.500 ml Tube Feeding 780 ml 390 ml # Voids 6 2 # Bowel Movements 4 1 Laboratory Tests 01/24/20 05:30: Stool Occult Blood [Pending] 01/24/20 07:50: White Blood Count 7.0, Red Blood Count 3.00L, Hemoglobin 9.1L, Hematocrit 25.7L , Mean Corpuscular Volume 86, Mean Corpuscular Hemoglobin 30.5, Mean Corpuscular Hemoglobin Concent 35.6, Red Cell Distribution Width 12.4, Platelet Count 167, Mean Platelet Volume 6.6, Neutrophils (%) (Auto) 64.5, Lymphocytes (% ) (Auto) 23.0, Monocytes (%) (Auto) 8.6, Eosinophils (%) (Auto) 3.1H, Basophils (%) (Auto) 0.8, Sodium Level 144, Potassium Level 3.4L, Chloride Level 108H, Carbon Dioxide Level 28, Anion Gap 9, Blood Urea Nitrogen 13, Creatinine 0.8, Estimat Glomerular Filtration Rate > 60, Glucose Level 138H, Calcium Level 8.5, Iron Level 76, Total Iron Binding Capacity 207L, Percent Iron Saturation 37, Unsaturated Iron Binding 131, Total Bilirubin 0.2, Aspartate Amino Transf (AST/ SGOT) 17, Alanine Aminotransferase (ALT/SGPT) 33, Alkaline Phosphatase 111, Total Protein 7.5, Albumin 2.7L, Globulin 4.8, Albumin/Globulin Ratio 0.6L, Vitamin B12 Level 950, Folate 39.1 Height (Feet): 5 Height (Inches): 9.00 Weight (Pounds): 160 General Appearance: lethargic EENT: normal ENT inspection Neck: normal alignment Cardiovascular: normal rate, regular rhythm Respiratory/Chest: no accessory muscle use Extremities: normal inspection Skin: normal pigmentation Tone Dietz DO Jan 24, 2020 11:53
[2020-01-24 12:00] VITALS: BP 129/77
--- NOTE | 2020-01-24 13:15 | Surgery Progress Note ---
Surgery Progress Note Subjective Additional Comments stable comfortable labs noted CXR improved no complaints Objective Last 24 Hour Vital Signs Date Time Temp Pulse Resp B/P (MAP) Pulse Ox O2 Delivery O2 Flow Rate FiO2 01/24/20 12:00 97.3 68 20 129/77 (94) 100 01/24/20 09:00 Room Air 01/24/20 08:00 64 01/24/20 08:00 98.5 64 20 157/67 (97) 100 01/24/20 04:00 98.4 63 24 151/71 (97) 100 01/24/20 03:39 87 01/24/20 00:00 98.7 67 20 155/65 (95) 100 01/23/20 23:29 55 01/23/20 21:00 Room Air 01/23/20 20:00 99.0 89 24 160/85 (110) 100 01/23/20 20:00 97.6 67 20 155/75 (101) 100 01/23/20 16:00 97.6 70 20 153/81 (105) 100 01/23/20 16:00 75 I&O Intake and Output 01/23/20 01/24/20 19:00 07:00 Intake Total 1747.500 ml 490 ml Balance 1747.500 ml 490 ml Intake Free Water 200 ml 100 ml IV Total 767.500 ml Tube Feeding 780 ml 390 ml # Voids 6 2 # Bowel Movements 4 1 Dressing: saturated Wound: clean Cardiovascular: RSR Respiratory: decreased breath sounds Abdomen: soft, non-tender, present bowel sounds Extremities: no tenderness, no cyanosis Laboratory Tests Test 01/24/20 05:30 01/24/20 07:50 Stool Occult Blood Negative (NEGATIVE) White Blood Count 7.0 K/UL (4.8-10.8) Red Blood Count 3.00 M/UL (4.70-6.10) L Hemoglobin 9.1 G/DL (14.2-18.0) L Hematocrit 25.7 % (42.0-52.0) L Mean Corpuscular Volume 86 FL (80-99) Mean Corpuscular Hemoglobin 30.5 PG (27.0-31.0) Mean Corpuscular Hemoglobin Concent 35.6 G/DL (32.0-36.0) Red Cell Distribution Width 12.4 % (11.6-14.8) Platelet Count 167 K/UL (150-450) Mean Platelet Volume 6.6 FL (6.5-10.1) Neutrophils (%) (Auto) 64.5 % (45.0-75.0) Lymphocytes (%) (Auto) 23.0 % (20.0-45.0) Monocytes (%) (Auto) 8.6 % (1.0-10.0) Eosinophils (%) (Auto) 3.1 % (0.0-3.0) H Basophils (%) (Auto) 0.8 % (0.0-2.0) Sodium Level 144 MMOL/L (136-145) Potassium Level 3.4 MMOL/L (3.5-5.1) L Chloride Level 108 MMOL/L (98-107) H Carbon Dioxide Level 28 MMOL/L (21-32) Anion Gap 9 mmol/L (5-15) Blood Urea Nitrogen 13 mg/dL (7-18) Creatinine 0.8 MG/DL (0.55-1.30) Estimat Glomerular Filtration Rate > 60 mL/min (>60) Glucose Level 138 MG/DL (74-106) H Calcium Level 8.5 MG/DL (8.5-10.1) Iron Level 76 ug/dL (50-175) Total Iron Binding Capacity 207 ug/dL (250-450) L Percent Iron Saturation 37 % (15-50) Unsaturated Iron Binding 131 ug/dL (112-346) Total Bilirubin 0.2 MG/DL (0.2-1.0) Aspartate Amino Transf (AST/SGOT) 17 U/L (15-37) Alanine Aminotransferase (ALT/SGPT) 33 U/L (12-78) Alkaline Phosphatase 111 U/L (46-116) Total Protein 7.5 G/DL (6.4-8.2) Albumin 2.7 G/DL (3.4-5.0) L Globulin 4.8 g/dL Albumin/Globulin Ratio 0.6 (1.0-2.7) L Vitamin B12 Level 950 PG/ML (193-986) Folate 39.1 NG/ML (8.6-58.9) Plan Problems: (1) Decubitus skin ulcer Assessment & Plan: Patient presented on admission with contractures, multiple areas of hyperpigmentation from previous pressure injuries. Hyperpigmentation noted to Sacrum, R and L trochanteric, dorso/lateral R foot and distal/lateral R foot and R heel. Both heels are soft but blanchable. Scrotum and perineum are erythematous but dry An area of erythema noted to medial upper R thigh. Tx.Plan: Apply Moisture Barrier Paste to sacrum. Cover with Optifoam drsg. Change every 3 days and prn. Apply Moisture Barrier Paste to scrotum, Bilat groin and both ischial tuberosities with each incontinence care. Apply Cavilon Skin Barrier to R and L trochanteric areas,Both heels and lateral aspects of both feet. Cover each area with Optifoam drsg.Change every 7 days and prn. Apply Cavilon Skin Barrier to both heels. Cover each heel with Optifoam drsg. Change every 7 days and prn. Reposition at least every 2hours or as tolerated. Place pillow between knees. Off-load heels with pillow. APM/Paty Mattress overlay. Nutritional optimization (2) Malnutrition Assessment & Plan: DAILY ESTIMATED NEEDS: Needs based on DM, [employer] TF, sepsis/ 73kg 22-28 kcals/kg 1306-6445 total kcals 1-2 g protein/kg 73-146 g total protein 25-30 mL/kg 0006-8269 total fluid mLs NUTRITION DIAGNOSIS: Swallowing difficulty R/T dysphagia as evidenced by PEG dep. CURRENT TF:Glucerna 1.2 @ 65ml/hr x 24 hrs ENTERAL NUTRITION RECOMMENDATIONS: Glucerna 1.2 @ 65ml/hr x 24 hrs to provide 1560ml, 1872kcal, 94g prot, 1256ml free water * Maintain current TF -> meets 100% est kcal/prot needs * HOB over 30 degrees/ water flush per MD ADDITIONAL RECOMMENDATIONS: * Calibrated bedscale wt for accurate CBW * Consider adding PARISA BID via PEG for skin integrity * Monitor lytes, replete as needed * Monitor BGs, need for additional hypoglycemics (3) Pneumonia (4) COPD (chronic obstructive pulmonary disease) Assessment & Plan: There is decreased reticular nodular infiltrate at the right lung base as compared to prior study. No new infiltrates. The remaining lungs pleural spaces are clear. The heart size is normal. A surgical clip projects at the aortopulmonary window Impression: Decreased right basilar infiltrate, over 5 days. (5) Anemia (6) Cellulitis Assessment & Plan: perirectal cellulitis from incontinence incontinence associated dermatitis care instructions given will monitor improving (7) Diabetes (8) Encephalopathy (9) HTN (hypertension) (10) BPH (benign prostatic hyperplasia) (11) Mandibular pain Christiano Castelan Jan 24, 2020 13:15
--- NOTE | 2020-01-24 14:25 | NUR ---
DISCHARGE PLANNING MESSAGE LEFT FOR DR KEITH REQUESTING DISCHARGE ORDER Addendum: 01/24/20 at 1427 by KAILEE SANDOVAL LVN LVN PER DR KEITH...WE ARE WAITING FOR SECOND COVID RESULTS
[2020-01-24 15:33] VITALS: BP 125/79
--- NOTE | 2020-01-24 16:29 | Progress Note ---
DATE: 01/24/2020 SUBJECTIVE: This is a 69-year-old male patient who continues to have some confusion, some disorganized thought process, some mood lability, decline in cognition below his baseline. That is why, his attending has requested daily psychiatric consultation requested. MENTAL STATUS EXAMINATION: This is a 69-year-old male. Appearance is disheveled. Attitude, irritable and agitated. Affect, guarded and restricted. Intellect, poor. Mood, depressed and anxious. Motor activity, psychomotor agitation. Attention span is poor. Orientation x2. Speech is low volume and slurred. Thought process, disorganized and illogical. Insight and judgment is poor. DIAGNOSIS: Major depressive disorder, mild, recurrent with psychotic features. PLAN: Continue titrating up on his medications to stabilize his mood. Twenty minutes of cognitive behavioral therapy to help him identify his automatic negative thoughts, help him convert his negative thoughts to more positive thoughts to reduce depression, anxiety, and mood lability. Twenty minutes of insight-oriented psychotherapy to help this patient understand and have better understanding of his medical and psychiatric condition to have better impulse control and behavior on the unit. Chart reviewed. Discussed with staff. Seen and assessed in his room. Letty Mcgowan M.D. DR: MATEUS JOB#: [id number] CC:
--- NOTE | 2020-01-24 19:30 | NUR ---
NURSE NOTES: RECEIVED REPORT FROM CORBY MENDOZA. PATIENT AWAKE, NON-VERBAL. PATIENT MAKES GARGLED NOISES WHEN NAME IS CALLED. NO S/SX OF PAIN OR DISCOMFORT AT THIS TIME. BREATHING IS EVEN AND UNLABORED ON 2L NC, NO S/SX OF DISTRESS. G-TUBE PATENT AND FLUSHING WELL. IV SITE ON RFA ASYMPTOMATIC, PATENT AND INTACT. SUPRAPUBIC AND CONDOM CATHETER DRAINING WELL TO GRAVITY. PATIENT IS SUPINE WITH BILATERAL ARMS, LEGS AND HEELS ELEVATED WITH PILLOWS. SACRUM AND BILATERAL HEELS COVERED IN OPTIFOAM. BED LOCKED AND IN LOWEST POSITION WITH PADDED SIDERAILS UP X 2. FALL, ASPIRATION, AND SEIZURE PRECAUTIONS IMPLEMENTED. CALL LIGHT WITHIN REACH. WILL CONTINUE TO MONITOR PATIENT.
--- NOTE | 2020-01-24 19:31 | NUR ---
HAND-OFF: Report given to Carmina TAVAREZ.
[2020-01-24 20:00] VITALS: BP 130/58
[2020-01-25] VITALS: BP 143/58
[2020-01-25] MEDS: Vancomycin 1 GM in D5W 275 ML IVPB SCH ×2 (03:15→15:51)
[2020-01-25 04:00] VITALS: BP 137/74
[2020-01-25] MEDS: NovoLOG Insulin Flexpen SUBQ SCH ×3 (06:00→18:00)
[2020-01-25] MEDS: Piperacillin/Tazobactam 3.375 GM in NS 110 ML IVPB SCH ×3 (06:14→22:19)
[2020-01-25 06:18] LABS: BASOPHILS % (AUTO) 0.9 % (0.0-2.0); EOSINOPHILS % (AUTO) 2.5 % (0.0-3.0); HEMATOCRIT 24.6 % (42.0-52.0); HEMOGLOBIN 8.9 G/DL (14.2-18.0); LYMPHOCYTES % (AUTO) 19.6 % (20.0-45.0); MEAN CORPUSCULAR VOLUME 85 FL (80-99); MONOCYTES % (AUTO) 8.1 % (1.0-10.0); NEUTROPHILS % (AUTO) 68.9 % (45.0-75.0); PLATELET COUNT 179 K/UL (150-450); RED BLOOD COUNT 2.89 M/UL (4.70-6.10); RED CELL DISTRIBUTION WIDTH 12.2 % (11.6-14.8)
[2020-01-25 06:46] LABS: CHLORIDE 108 MMOL/L (98-107); SODIUM 145 MMOL/L (136-145)
[2020-01-25 06:57] LABS: ANION GAP 10 mmol/L (5-15); BLOOD UREA NITROGEN 11 mg/dL (7-18); CALCIUM 8.7 MG/DL (8.5-10.1); CARBON DIOXIDE 27 MMOL/L (21-32); CREATININE 0.9 MG/DL (0.55-1.30); POTASSIUM 3.2 MMOL/L (3.5-5.1)
--- NOTE | 2020-01-25 07:13 | NUR ---
NURSE NOTES: Received report from CORBY Grewal. Patient is AO x 1 with no signs of distress or pain noted at this time. IV checked and flushed and patents. There are no signs of erythema, infiltration, or bleeding. Bed is in the lowest position, call light is within reach, bed alarm on. Will continue with the plan of care.
--- NOTE | 2020-01-25 07:22 | NUR ---
HAND-OFF: Report given to CORBY MENDOZA. PLAN OF CARE ENDORSED.
[2020-01-25 08:00] VITALS: BP 145/69
[2020-01-25] MEDS: Memantine 5 MG TAB GT SCH ×2 (08:18→20:48)
[2020-01-25] MEDS: Heparin 5000 units/ml inj SUBQ SCH ×2 (08:20→20:47)
--- NOTE | 2020-01-25 08:47 | General Progress Note ---
Assessment/Plan Status: unchanged Assessment/Plan: 1. History of pneumonia. 2. COPD. 3. Anemia. 4. Diabetes. 5. Hypertension. 6. Dysphagia requiring G-tube placement. 7. History of chronic suprapubic catheter placement. fu H&H prn blood transfusion fu stool ob>>>neg GTF GI procedures if needed Subjective ROS Limited/Unobtainable: No Allergies: Coded Allergies: No Known Allergies (Unverified , 04/08/16) Objective Last 24 Hour Vital Signs Date Time Temp Pulse Resp B/P (MAP) Pulse Ox O2 Delivery O2 Flow Rate FiO2 01/25/20 08:00 98.2 68 20 145/69 (94) 100 01/25/20 04:00 69 01/25/20 04:00 98.0 66 20 137/74 (95) 99 01/25/20 00:00 59 01/25/20 00:00 98.2 60 18 143/58 (86) 100 01/24/20 21:00 Room Air 01/24/20 20:00 98.4 56 20 130/58 (82) 96 01/24/20 20:00 60 01/24/20 16:00 60 01/24/20 15:33 97.6 64 20 125/79 (94) 100 01/24/20 12:00 97.3 68 20 129/77 (94) 100 01/24/20 12:00 72 01/24/20 09:00 Room Air Intake and Output 01/24/20 01/25/20 19:00 07:00 Output Total 1850 ml 500 ml Balance -1850 ml -500 ml Output Urine Total 1850 ml 500 ml # Bowel Movements 2 2 Laboratory Tests 01/25/20 05:30: White Blood Count 7.0, Red Blood Count 2.89L, Hemoglobin 8.9L, Hematocrit 24.6L , Mean Corpuscular Volume 85, Mean Corpuscular Hemoglobin 30.7, Mean Corpuscular Hemoglobin Concent 35.9, Red Cell Distribution Width 12.2, Platelet Count 179, Mean Platelet Volume 6.5, Neutrophils (%) (Auto) 68.9, Lymphocytes (% ) (Auto) 19.6L, Monocytes (%) (Auto) 8.1, Eosinophils (%) (Auto) 2.5, Basophils (%) (Auto) 0.9, Sodium Level 145, Potassium Level 3.2L, Chloride Level 108H, Carbon Dioxide Level 27, Anion Gap 10, Blood Urea Nitrogen 11, Creatinine 0.9, Estimat Glomerular Filtration Rate > 60, Glucose Level 219H, Calcium Level 8.7 Height (Feet): 5 Height (Inches): 9.00 Weight (Pounds): 154 General Appearance: no apparent distress EENT: normal ENT inspection Neck: normal alignment Cardiovascular: normal rate Respiratory/Chest: decreased breath sounds Abdomen: normal bowel sounds, non tender, soft Extremities: non-tender Ernie Bloom MD Jan 25, 2020 08:47
--- NOTE | 2020-01-25 08:56 | General Progress Note ---
Assessment/Plan Problem List: (1) Suspected COVID-19 virus infection ICD Codes: R68.89 - Other general symptoms and signs SNOMED: 722512962 (2) Pneumonia ICD Codes: J18.9 - Pneumonia, unspecified organism SNOMED: 036269540 (3) COPD (chronic obstructive pulmonary disease) ICD Codes: J44.9 - Chronic obstructive pulmonary disease, unspecified SNOMED: 52464777 (4) Anemia ICD Codes: D64.9 - Anemia, unspecified SNOMED: 411868370 (5) Diabetes ICD Codes: E11.9 - Type 2 diabetes mellitus without complications SNOMED: 16697559 (6) Encephalopathy ICD Codes: G93.40 - Encephalopathy, unspecified SNOMED: 95020075, 507026887 (7) HTN (hypertension) ICD Codes: I10 - Essential (primary) hypertension SNOMED: 68829294 (8) Decubitus skin ulcer ICD Codes: L89.90 - Pressure ulcer of unspecified site, unspecified stage SNOMED: 247280255 (9) Malnutrition ICD Codes: E46 - Unspecified protein-calorie malnutrition SNOMED: 54437930 Status: unchanged Assessment/Plan: o2 pulm tx abx pt diet eval cbc bmp am Subjective Constitutional: Reports: weakness Allergies: Coded Allergies: No Known Allergies (Unverified , 04/08/16) All Systems: reviewed and negative except above Subjective o2nc sleeping Objective Last 24 Hour Vital Signs Date Time Temp Pulse Resp B/P (MAP) Pulse Ox O2 Delivery O2 Flow Rate FiO2 01/25/20 08:00 98.2 68 20 145/69 (94) 100 01/25/20 04:00 69 01/25/20 04:00 98.0 66 20 137/74 (95) 99 01/25/20 00:00 59 01/25/20 00:00 98.2 60 18 143/58 (86) 100 01/24/20 21:00 Room Air 01/24/20 20:00 98.4 56 20 130/58 (82) 96 01/24/20 20:00 60 01/24/20 16:00 60 01/24/20 15:33 97.6 64 20 125/79 (94) 100 01/24/20 12:00 97.3 68 20 129/77 (94) 100 01/24/20 12:00 72 01/24/20 09:00 Room Air Intake and Output 01/24/20 01/25/20 19:00 07:00 Output Total 1850 ml 500 ml Balance -1850 ml -500 ml Output Urine Total 1850 ml 500 ml # Bowel Movements 2 2 Laboratory Tests 01/25/20 05:30: White Blood Count 7.0, Red Blood Count 2.89L, Hemoglobin 8.9L, Hematocrit 24.6L , Mean Corpuscular Volume 85, Mean Corpuscular Hemoglobin 30.7, Mean Corpuscular Hemoglobin Concent 35.9, Red Cell Distribution Width 12.2, Platelet Count 179, Mean Platelet Volume 6.5, Neutrophils (%) (Auto) 68.9, Lymphocytes (% ) (Auto) 19.6L, Monocytes (%) (Auto) 8.1, Eosinophils (%) (Auto) 2.5, Basophils (%) (Auto) 0.9, Sodium Level 145, Potassium Level 3.2L, Chloride Level 108H, Carbon Dioxide Level 27, Anion Gap 10, Blood Urea Nitrogen 11, Creatinine 0.9, Estimat Glomerular Filtration Rate > 60, Glucose Level 219H, Calcium Level 8.7 Height (Feet): 5 Height (Inches): 9.00 Weight (Pounds): 154 General Appearance: lethargic EENT: normal ENT inspection Neck: normal alignment Cardiovascular: normal rate, regular rhythm Extremities: normal inspection Skin: normal pigmentation Tone Dietz DO Jan 25, 2020 08:56
--- NOTE | 2020-01-25 09:21 | Surgery Progress Note ---
Surgery Progress Note Subjective Additional Comments afebrile, HD stable comfortable labs okay exam stable Objective Last 24 Hour Vital Signs Date Time Temp Pulse Resp B/P (MAP) Pulse Ox O2 Delivery O2 Flow Rate FiO2 01/25/20 08:00 98.2 68 20 145/69 (94) 100 01/25/20 04:00 69 01/25/20 04:00 98.0 66 20 137/74 (95) 99 01/25/20 00:00 59 01/25/20 00:00 98.2 60 18 143/58 (86) 100 01/24/20 21:00 Room Air 01/24/20 20:00 98.4 56 20 130/58 (82) 96 01/24/20 20:00 60 01/24/20 16:00 60 01/24/20 15:33 97.6 64 20 125/79 (94) 100 01/24/20 12:00 97.3 68 20 129/77 (94) 100 01/24/20 12:00 72 I&O Intake and Output 01/24/20 01/25/20 19:00 07:00 Output Total 1850 ml 500 ml Balance -1850 ml -500 ml Output Urine Total 1850 ml 500 ml # Bowel Movements 2 2 Dressing: saturated Wound: other Drains: other Cardiovascular: RSR Respiratory: decreased breath sounds Abdomen: soft, non-tender, present bowel sounds Extremities: no tenderness, no cyanosis, other Laboratory Tests Test 01/25/20 05:30 White Blood Count 7.0 K/UL (4.8-10.8) Red Blood Count 2.89 M/UL (4.70-6.10) L Hemoglobin 8.9 G/DL (14.2-18.0) L Hematocrit 24.6 % (42.0-52.0) L Mean Corpuscular Volume 85 FL (80-99) Mean Corpuscular Hemoglobin 30.7 PG (27.0-31.0) Mean Corpuscular Hemoglobin Concent 35.9 G/DL (32.0-36.0) Red Cell Distribution Width 12.2 % (11.6-14.8) Platelet Count 179 K/UL (150-450) Mean Platelet Volume 6.5 FL (6.5-10.1) Neutrophils (%) (Auto) 68.9 % (45.0-75.0) Lymphocytes (%) (Auto) 19.6 % (20.0-45.0) L Monocytes (%) (Auto) 8.1 % (1.0-10.0) Eosinophils (%) (Auto) 2.5 % (0.0-3.0) Basophils (%) (Auto) 0.9 % (0.0-2.0) Sodium Level 145 MMOL/L (136-145) Potassium Level 3.2 MMOL/L (3.5-5.1) L Chloride Level 108 MMOL/L (98-107) H Carbon Dioxide Level 27 MMOL/L (21-32) Anion Gap 10 mmol/L (5-15) Blood Urea Nitrogen 11 mg/dL (7-18) Creatinine 0.9 MG/DL (0.55-1.30) Estimat Glomerular Filtration Rate > 60 mL/min (>60) Glucose Level 219 MG/DL (74-106) H Calcium Level 8.7 MG/DL (8.5-10.1) Plan Problems: (1) Decubitus skin ulcer Assessment & Plan: Patient presented on admission with contractures, multiple areas of hyperpigmentation from previous pressure injuries. Hyperpigmentation noted to Sacrum, R and L trochanteric, dorso/lateral R foot and distal/lateral R foot and R heel. Both heels are soft but blanchable. Scrotum and perineum are erythematous but dry An area of erythema noted to medial upper R thigh. Tx.Plan: Apply Moisture Barrier Paste to sacrum. Cover with Optifoam drsg. Change every 3 days and prn. Apply Moisture Barrier Paste to scrotum, Bilat groin and both ischial tuberosities with each incontinence care. Apply Cavilon Skin Barrier to R and L trochanteric areas,Both heels and lateral aspects of both feet. Cover each area with Optifoam drsg.Change every 7 days and prn. Apply Cavilon Skin Barrier to both heels. Cover each heel with Optifoam drsg. Change every 7 days and prn. Reposition at least every 2hours or as tolerated. Place pillow between knees. Off-load heels with pillow. APM/Paty Mattress overlay. Nutritional optimization (2) Malnutrition Assessment & Plan: DAILY ESTIMATED NEEDS: Needs based on DM, APARTMENT RENTAL [employer] TF, sepsis/ 73kg 22-28 kcals/kg 6232-4701 total kcals 1-2 g protein/kg 73-146 g total protein 25-30 mL/kg 4023-9784 total fluid mLs NUTRITION DIAGNOSIS: Swallowing difficulty R/T dysphagia as evidenced by PEG dep. CURRENT TF:Glucerna 1.2 @ 65ml/hr x 24 hrs ENTERAL NUTRITION RECOMMENDATIONS: Glucerna 1.2 @ 65ml/hr x 24 hrs to provide 1560ml, 1872kcal, 94g prot, 1256ml free water * Maintain current TF -> meets 100% est kcal/prot needs * HOB over 30 degrees/ water flush per MD ADDITIONAL RECOMMENDATIONS: * Calibrated bedscale wt for accurate CBW * Consider adding PARISA BID via PEG for skin integrity * Monitor lytes, replete as needed * Monitor BGs, need for additional hypoglycemics (3) Pneumonia (4) COPD (chronic obstructive pulmonary disease) Assessment & Plan: There is decreased reticular nodular infiltrate at the right lung base as compared to prior study. No new infiltrates. The remaining lungs pleural spaces are clear. The heart size is normal. A surgical clip projects at the aortopulmonary window Impression: Decreased right basilar infiltrate, over 5 days. (5) Anemia (6) Cellulitis Assessment & Plan: perirectal cellulitis from incontinence incontinence associated dermatitis care instructions given will monitor improving great nursing care appreciated as improvement noted (7) Diabetes (8) Encephalopathy (9) HTN (hypertension) (10) BPH (benign prostatic hyperplasia) (11) Mandibular pain Christiano Castelan Jan 25, 2020 09:21
--- NOTE | 2020-01-25 11:25 | Pulmonology Progress Note ---
Assessment/Plan Assessment/Plan IMPRESSION: 1. Right lung pneumonia. 2. jail resident. DISCUSSION: Continue abx O2 prn; Is COVID 19 negative Currently on RA Pulmonary hygiene Will follow Miguel Roche M.D. Subjective Interval Events: None new Constitutional: Reports: no symptoms HEENT: Repors: no symptoms Respiratory: Reports: no symptoms Cardiovascular: Reports: no symptoms Gastrointestinal/Abdominal: Reports: no symptoms Allergies: Coded Allergies: No Known Allergies (Unverified , 04/08/16) Objective Last 24 Hour Vital Signs Date Time Temp Pulse Resp B/P (MAP) Pulse Ox O2 Delivery O2 Flow Rate FiO2 01/25/20 09:00 Room Air 01/25/20 08:00 98.2 68 20 145/69 (94) 100 01/25/20 08:00 68 01/25/20 04:00 69 01/25/20 04:00 98.0 66 20 137/74 (95) 99 01/25/20 00:00 59 01/25/20 00:00 98.2 60 18 143/58 (86) 100 01/24/20 21:00 Room Air 01/24/20 20:00 98.4 56 20 130/58 (82) 96 01/24/20 20:00 60 01/24/20 16:00 60 01/24/20 15:33 97.6 64 20 125/79 (94) 100 01/24/20 12:00 97.3 68 20 129/77 (94) 100 01/24/20 12:00 72 Intake and Output 01/24/20 01/25/20 19:00 07:00 Output Total 1850 ml 500 ml Balance -1850 ml -500 ml Output Urine Total 1850 ml 500 ml # Bowel Movements 2 2 General Appearance: no acute distress HEENT: normocephalic Respiratory/Chest: chest wall non-tender Cardiovascular: normal peripheral pulses Abdomen: normal bowel sounds Microbiology Date/Time Source Procedure Growth Status 01/22/20 13:12 Blood Blood Culture - Preliminary NO GROWTH AFTER 48 HOURS Resulted 01/22/20 13:10 Blood Blood Culture - Preliminary NO GROWTH AFTER 48 HOURS Resulted 01/23/20 14:15 Sputum Expectorated Gram Stain - Preliminary Resulted 01/23/20 14:15 Sputum Expectorated Sputum Culture Pending Resulted Laboratory Tests 01/25/20 05:30: White Blood Count 7.0, Red Blood Count 2.89L, Hemoglobin 8.9L, Hematocrit 24.6L , Mean Corpuscular Volume 85, Mean Corpuscular Hemoglobin 30.7, Mean Corpuscular Hemoglobin Concent 35.9, Red Cell Distribution Width 12.2, Platelet Count 179, Mean Platelet Volume 6.5, Neutrophils (%) (Auto) 68.9, Lymphocytes (% ) (Auto) 19.6L, Monocytes (%) (Auto) 8.1, Eosinophils (%) (Auto) 2.5, Basophils (%) (Auto) 0.9, Sodium Level 145, Potassium Level 3.2L, Chloride Level 108H, Carbon Dioxide Level 27, Anion Gap 10, Blood Urea Nitrogen 11, Creatinine 0.9, Estimat Glomerular Filtration Rate > 60, Glucose Level 219H, Calcium Level 8.7 Current Medications Medications (Trade) Dose Ordered Sig/Angel Route PRN Reason Start Time Stop Time Status Last Admin Dose Admin Acetaminophen (Tylenol) 650 mg Q4H PRN ORAL Mild Pain (Pain Scale 1-3) 01/20/20 23:00 02/18/20 18:59 Dextrose (Dextrose 50%) 25 ml Q30M PRN IV Hypoglycemia 01/20/20 20:00 04/18/20 18:59 Dextrose (Dextrose 50%) 50 ml Q30M PRN IV Hypoglycemia 01/20/20 20:00 04/18/20 18:59 Heparin Sodium (Porcine) (Heparin 5000 units/ml) 5,000 units EVERY 12 HOURS SUBQ 01/20/20 21:00 03/04/20 20:59 01/25/20 08:20 Insulin Aspart (NovoLOG) EVERY 6 HOURS SUBQ 01/21/20 00:00 04/18/20 20:59 Memantine (Namenda) 5 mg EVERY 12 HOURS GT 01/20/20 21:00 02/19/20 17:59 01/25/20 08:18 Piperacillin Sod/ Tazobactam Sod 3.375 gm/Sodium Chloride 110 ml @ 27.5 mls/hr Q8HR IVPB 01/22/20 14:00 01/26/20 21:59 01/25/20 06:14 Potassium Chloride/Sodium Chloride 1,000 ml @ 50 mls/hr Q20H IV 01/20/20 19:45 02/18/20 20:59 01/24/20 22:37 Vancomycin HCl (Vanco rx to dose) 1 ea DAILY PRN MISC Per rx protocol 01/21/20 09:00 02/18/20 18:29 Vancomycin HCl 1 gm/Dextrose 275 ml @ 183.708 mls/hr Q12H IVPB 01/21/20 03:00 01/29/20 23:59 01/25/20 03:15 Miguel Roche MD Jan 25, 2020 11:25
[2020-01-25 12:00] VITALS: BP 147/84
--- NOTE | 2020-01-25 12:25 | NUR ---
CASE MANAGEMENT:REVIEW 01/25/20 SI: PNEUMONIA. COPD COVID 19 NEGATIVE 98.2 68 20 145/69 100% ON RA H/H-8.9/24.6 K-3.2 GLUCOSE+219 IS: IV ZOSYN Q8HRS IV VANCOMYCIN Q12 IVF+KCL@50/HR HEPARIN SQ Q12 : TELEMETRY STATUS DCP: FROM [facility] IN [place] PLAN: COVID 19 NEGATIVE .....REPEATED 01/22/20...RESULTAS PENDING
--- NOTE | 2020-01-25 13:49 | Infectious Diseases Prog Note ---
Assessment/Plan Assessment/Plan Afebrile No leukocytosis Mild transaminitis PNA r/o probable COVID 01/18 SARS-COV 2 PCR neg (1st sample); 01/21 2nd sample p flu swab neg 01/23 CXR: Decreased right basilar infiltrate, over 5 days. CXR: Nodular and reticular right basilar opacities. Nonspecific, could indicate acute inflammation versus chronic postinflammatory changes, among many other possibilities. Gram positive bacteremia-contaminant 01/18 BCx: diptheroids; 01/21 Bcx NTD Multiple pressure injuries but healing, no evidence of infection QTc 435 MRSA nares positive Psych disorder COPD BPH DM Seizure disorder dementia HTN GERD anemia G tube suprapubic catheter, SP exchange 12/28 Plan: zosyn and vanc #4/5-7 SP ceftriaxone and azithromycin #1 f/u urine legionella f/u mycoplasma IgM f/u COVID test x2 f/u sputum cx f/u BCx COVID isolation monitor temp and CBC monitor resp status pls do not DC isolation without ID approval RALPH RN Subjective Allergies: Coded Allergies: No Known Allergies (Unverified , 04/08/16) Subjective afebrile repeat bcx NTD no leukocytosis pending 2nd covid Objective Vital Signs Last 24 Hour Vital Signs Date Time Temp Pulse Resp B/P (MAP) Pulse Ox O2 Delivery O2 Flow Rate FiO2 01/25/20 09:00 Room Air 01/25/20 08:00 98.2 68 20 145/69 (94) 100 01/25/20 08:00 68 01/25/20 04:00 69 01/25/20 04:00 98.0 66 20 137/74 (95) 99 01/25/20 00:00 59 01/25/20 00:00 98.2 60 18 143/58 (86) 100 01/24/20 21:00 Room Air 01/24/20 20:00 98.4 56 20 130/58 (82) 96 01/24/20 20:00 60 01/24/20 16:00 60 01/24/20 15:33 97.6 64 20 125/79 (94) 100 Height (Feet): 5 Height (Inches): 9.00 Weight (Pounds): 154 Objective not seen to limit COVID19 exposure Microbiology Date/Time Source Procedure Growth Status 01/23/20 14:15 Sputum Expectorated Gram Stain - Preliminary Resulted 01/23/20 14:15 Sputum Expectorated Sputum Culture Pending Resulted Laboratory Tests Test 01/25/20 05:30 White Blood Count 7.0 K/UL (4.8-10.8) Red Blood Count 2.89 M/UL (4.70-6.10) L Hemoglobin 8.9 G/DL (14.2-18.0) L Hematocrit 24.6 % (42.0-52.0) L Mean Corpuscular Volume 85 FL (80-99) Mean Corpuscular Hemoglobin 30.7 PG (27.0-31.0) Mean Corpuscular Hemoglobin Concent 35.9 G/DL (32.0-36.0) Red Cell Distribution Width 12.2 % (11.6-14.8) Platelet Count 179 K/UL (150-450) Mean Platelet Volume 6.5 FL (6.5-10.1) Neutrophils (%) (Auto) 68.9 % (45.0-75.0) Lymphocytes (%) (Auto) 19.6 % (20.0-45.0) L Monocytes (%) (Auto) 8.1 % (1.0-10.0) Eosinophils (%) (Auto) 2.5 % (0.0-3.0) Basophils (%) (Auto) 0.9 % (0.0-2.0) Sodium Level 145 MMOL/L (136-145) Potassium Level 3.2 MMOL/L (3.5-5.1) L Chloride Level 108 MMOL/L (98-107) H Carbon Dioxide Level 27 MMOL/L (21-32) Anion Gap 10 mmol/L (5-15) Blood Urea Nitrogen 11 mg/dL (7-18) Creatinine 0.9 MG/DL (0.55-1.30) Estimat Glomerular Filtration Rate > 60 mL/min (>60) Glucose Level 219 MG/DL (74-106) H Calcium Level 8.7 MG/DL (8.5-10.1) Current Medications Medications (Trade) Dose Ordered Sig/Angel Route PRN Reason Start Time Stop Time Status Last Admin Dose Admin Acetaminophen (Tylenol) 650 mg Q4H PRN ORAL Mild Pain (Pain Scale 1-3) 01/20/20 23:00 02/18/20 18:59 Dextrose (Dextrose 50%) 25 ml Q30M PRN IV Hypoglycemia 01/20/20 20:00 04/18/20 18:59 Dextrose (Dextrose 50%) 50 ml Q30M PRN IV Hypoglycemia 01/20/20 20:00 04/18/20 18:59 Heparin Sodium (Porcine) (Heparin 5000 units/ml) 5,000 units EVERY 12 HOURS SUBQ 01/20/20 21:00 03/04/20 20:59 01/25/20 08:20 Insulin Aspart (NovoLOG) EVERY 6 HOURS SUBQ 01/21/20 00:00 04/18/20 20:59 Memantine (Namenda) 5 mg EVERY 12 HOURS GT 01/20/20 21:00 02/19/20 17:59 01/25/20 08:18 Piperacillin Sod/ Tazobactam Sod 3.375 gm/Sodium Chloride 110 ml @ 27.5 mls/hr Q8HR IVPB 01/22/20 14:00 01/26/20 21:59 01/25/20 06:14 Potassium Chloride/Sodium Chloride 1,000 ml @ 50 mls/hr Q20H IV 01/20/20 19:45 02/18/20 20:59 01/24/20 22:37 Vancomycin HCl (Vanco rx to dose) 1 ea DAILY PRN MISC Per rx protocol 01/21/20 09:00 02/18/20 18:29 Vancomycin HCl 1 gm/Dextrose 275 ml @ 183.708 mls/hr Q12H IVPB 01/21/20 03:00 01/29/20 23:59 01/25/20 03:15 Larua Swartz M.D. Jan 25, 2020 13:49
[2020-01-25 16:00] VITALS: BP 150/81
--- NOTE | 2020-01-25 16:30 | Progress Note ---
DATE: 01/25/2020 SUBJECTIVE: This is a 69-year-old male patient who currently has pneumonia, rule out COVID-19. He also has diabetes, encephalopathy, hypertension, BPH and all of his medical illnesses are causing him to have a decline in cognition below his baseline. He has altered mental status, confusion that is why his attending has requested daily psychiatric consultation for this patient. MENTAL STATUS EXAMINATION: This is a 69-year-old male. Appearance is disheveled. Attitude, irritable and agitated. Affect, guarded and restricted. Intellect, poor. Mood, depressed and anxious. Motor activity, psychomotor agitation. Attention span is poor. Orientation x2. Speech is low volume and slurred. Thought process, disorganized and illogical. Insight and judgment is poor. DIAGNOSIS: Major depressive disorder, severe, recurrent with psychotic features, rule out dementia with psychosis. PLAN: Treat the patient with Namenda 5 mg per G-tube q.12 hours to prevent any decline in his cognition. A 20-minutes of behavioral management provided. Chart reviewed and discussed this staff. Seen and assessed at the bedside. Letty Mcgowan M.D. DR: Efrain JOB#: [id number] CC:
--- NOTE | 2020-01-25 19:26 | NUR ---
HAND-OFF: Report given to Milla TAVAREZ.Patient is in stable condition.
--- NOTE | 2020-01-25 19:40 | NUR ---
NURSE NOTES: Received report from CORBY Colon. Patient is on bed, awake, alert and oriented x 0, patient can only open his eyes. No acute signs and symptoms of distress noted at this time. Connected to oxygen via nasal cannula @ 2Lpm and no respiratory distress reported. IV is on right forearm g-20, IVF of normal saline +20 meqs KCL x 50cc/hour. Patient has G-tube, glucerna 1.2 335cc QID. Safety measures are in placed. Call light and bedside table within reach, bed in low and locked position, side rails up x 2. Bed alarm is on. Will continue plan of care.
[2020-01-25 20:00] VITALS: BP 159/89
[2020-01-25] MEDS: NS w/KCl 20mEq 1000ml 1,000 ML IV SCH (20:49)
[2020-01-26] VITALS (7 sets, daily range): BP systolic 131–147; BP diastolic 76–86
[2020-01-26] MEDS: Vancomycin 1 GM in D5W 275 ML IVPB SCH ×2 (03:35→14:53)
[2020-01-26] MEDS: NovoLOG Insulin Flexpen SUBQ SCH ×4 (06:00→17:50)
[2020-01-26] MEDS: Piperacillin/Tazobactam 3.375 GM in NS 110 ML IVPB SCH ×3 (06:26→22:08)
[2020-01-26 06:46] LABS: BASOPHILS % (AUTO) 0.8 % (0.0-2.0); EOSINOPHILS % (AUTO) 2.3 % (0.0-3.0); HEMATOCRIT 26.3 % (42.0-52.0); HEMOGLOBIN 9.4 G/DL (14.2-18.0); LYMPHOCYTES % (AUTO) 23.2 % (20.0-45.0); MEAN CORPUSCULAR VOLUME 85 FL (80-99); MONOCYTES % (AUTO) 9.2 % (1.0-10.0); NEUTROPHILS % (AUTO) 64.5 % (45.0-75.0); PLATELET COUNT 179 K/UL (150-450); RED BLOOD COUNT 3.09 M/UL (4.70-6.10); RED CELL DISTRIBUTION WIDTH 12.3 % (11.6-14.8); WHITE BLOOD COUNT 7.4 K/UL (4.8-10.8)
[2020-01-26 06:56] LABS: ANION GAP 8 mmol/L (5-15); BLOOD UREA NITROGEN 10 mg/dL (7-18); CALCIUM 9.1 MG/DL (8.5-10.1); CARBON DIOXIDE 29 MMOL/L (21-32); CHLORIDE 107 MMOL/L (98-107); POTASSIUM 3.3 MMOL/L (3.5-5.1); SODIUM 144 MMOL/L (136-145)
--- NOTE | 2020-01-26 07:19 | NUR ---
HAND-OFF: Report given to CORBY Vann. Patient is on poor prognosis, saturating 89-90% on 15L non-rebreather mask. Addendum: 01/26/20 at 5722 by Milla Waggoner RN wrong entry.
--- NOTE | 2020-01-26 07:30 | NUR ---
NURSE NOTES: Relayed result of Covid-[address] Swartz. Awaiting for call back.
--- NOTE | 2020-01-26 07:33 | NUR ---
HAND-OFF: Report given to CORBY Solano. Patient is in stable condition. Plan of care endorsed.
--- NOTE | 2020-01-26 07:35 | NUR ---
NURSE NOTES: Received report from CORBY Loyola. Patient is AO x 1. with no signs of distress or pain noted at this time. IV checked and flushed, no signs of erythema, infiltration, or bleeding. G-tube flushed and patent. Bed is in the lowest position, call light is within reach, bed alarm on. Will continue with the plan of care.
[2020-01-26] MEDS: Memantine 5 MG TAB GT SCH ×2 (08:50→21:11)
[2020-01-26] MEDS: Heparin 5000 units/ml inj SUBQ SCH ×2 (08:55→21:16)
--- NOTE | 2020-01-26 09:27 | General Progress Note ---
Assessment/Plan Status: unchanged Assessment/Plan: 1. History of pneumonia. 2. COPD. 3. Anemia. 4. Diabetes. 5. Hypertension. 6. Dysphagia requiring G-tube placement. 7. History of chronic suprapubic catheter placement. fu H&H prn blood transfusion fu stool ob>>>neg GTF GI procedures if needed Subjective ROS Limited/Unobtainable: No Allergies: Coded Allergies: No Known Allergies (Unverified , 04/08/16) Objective Last 24 Hour Vital Signs Date Time Temp Pulse Resp B/P (MAP) Pulse Ox O2 Delivery O2 Flow Rate FiO2 01/26/20 04:00 98.0 58 18 138/76 (96) 98 01/26/20 04:00 58 01/26/20 00:00 97.9 66 18 142/80 (100) 97 01/26/20 00:00 66 01/25/20 21:00 Room Air 01/25/20 20:00 98.0 62 18 159/89 (112) 99 01/25/20 20:00 61 01/25/20 16:00 97.9 58 20 150/81 (104) 99 01/25/20 16:00 58 01/25/20 12:00 98.6 62 20 147/84 (105) 99 01/25/20 12:00 62 Intake and Output 01/25/20 01/26/20 19:00 07:00 Output Total 1200 ml Balance -1200 ml Output Urine Total 1200 ml # Voids 2 # Bowel Movements 2 Laboratory Tests 01/26/20 06:19: White Blood Count 7.4, Red Blood Count 3.09L, Hemoglobin 9.4L, Hematocrit 26.3L , Mean Corpuscular Volume 85, Mean Corpuscular Hemoglobin 30.5, Mean Corpuscular Hemoglobin Concent 35.8, Red Cell Distribution Width 12.3, Platelet Count 179, Mean Platelet Volume 6.1L, Neutrophils (%) (Auto) 64.5, Lymphocytes ( %) (Auto) 23.2, Monocytes (%) (Auto) 9.2, Eosinophils (%) (Auto) 2.3, Basophils (%) (Auto) 0.8, Sodium Level 144, Potassium Level 3.3L, Chloride Level 107, Carbon Dioxide Level 29, Anion Gap 8, Blood Urea Nitrogen 10, Creatinine 1.0, Estimat Glomerular Filtration Rate > 60, Glucose Level 160H, Calcium Level 9.1 Height (Feet): 5 Height (Inches): 9.00 Weight (Pounds): 154 General Appearance: no apparent distress EENT: normal ENT inspection Neck: supple Cardiovascular: normal rate Respiratory/Chest: decreased breath sounds Abdomen: normal bowel sounds, non tender, soft Extremities: non-tender Ernie Bloom MD Jan 26, 2020 09:27
--- NOTE | 2020-01-26 10:03 | NUR ---
DISCHARGE PLANNING NURSING TO OBTAIN CLEARANCE FROM ID AND PULMO FOR DISCHARGE
--- NOTE | 2020-01-26 10:30 | NUR ---
NURSE NOTES: MD Dietz made aware of potassium of 3.3, no new order. Will continue with the plan of care.
--- NOTE | 2020-01-26 11:11 | Pulmonology Progress Note ---
Assessment/Plan Assessment/Plan IMPRESSION: 1. Right lung pneumonia. 2. alf resident. DISCUSSION: Continue abx O2 prn; Is COVID 19 negative Currently on RA Pulmonary hygiene Will follow Miguel Roche M.D. Subjective Interval Events: None new Constitutional: Reports: no symptoms HEENT: Repors: no symptoms Respiratory: Reports: shortness of breath Cardiovascular: Reports: no symptoms Gastrointestinal/Abdominal: Reports: no symptoms Allergies: Coded Allergies: No Known Allergies (Unverified , 04/08/16) Objective Last 24 Hour Vital Signs Date Time Temp Pulse Resp B/P (MAP) Pulse Ox O2 Delivery O2 Flow Rate FiO2 01/26/20 09:59 97.7 65 20 143/81 (101) 100 01/26/20 09:59 65 01/26/20 09:00 Room Air 01/26/20 08:00 97.7 65 18 143/81 (101) 100 01/26/20 04:00 98.0 58 18 138/76 (96) 98 01/26/20 04:00 58 01/26/20 00:00 97.9 66 18 142/80 (100) 97 01/26/20 00:00 66 01/25/20 21:00 Room Air 01/25/20 20:00 98.0 62 18 159/89 (112) 99 01/25/20 20:00 61 01/25/20 16:00 97.9 58 20 150/81 (104) 99 01/25/20 16:00 58 01/25/20 12:00 98.6 62 20 147/84 (105) 99 01/25/20 12:00 62 Intake and Output 01/25/20 01/26/20 19:00 07:00 Output Total 1200 ml Balance -1200 ml Output Urine Total 1200 ml # Voids 2 # Bowel Movements 2 General Appearance: no acute distress HEENT: normocephalic Respiratory/Chest: chest wall non-tender Cardiovascular: normal peripheral pulses Abdomen: normal bowel sounds Laboratory Tests 01/26/20 06:19: White Blood Count 7.4, Red Blood Count 3.09L, Hemoglobin 9.4L, Hematocrit 26.3L , Mean Corpuscular Volume 85, Mean Corpuscular Hemoglobin 30.5, Mean Corpuscular Hemoglobin Concent 35.8, Red Cell Distribution Width 12.3, Platelet Count 179, Mean Platelet Volume 6.1L, Neutrophils (%) (Auto) 64.5, Lymphocytes ( %) (Auto) 23.2, Monocytes (%) (Auto) 9.2, Eosinophils (%) (Auto) 2.3, Basophils (%) (Auto) 0.8, Sodium Level 144, Potassium Level 3.3L, Chloride Level 107, Carbon Dioxide Level 29, Anion Gap 8, Blood Urea Nitrogen 10, Creatinine 1.0, Estimat Glomerular Filtration Rate > 60, Glucose Level 160H, Calcium Level 9.1 Current Medications Medications (Trade) Dose Ordered Sig/Angel Route PRN Reason Start Time Stop Time Status Last Admin Dose Admin Acetaminophen (Tylenol) 650 mg Q4H PRN ORAL Mild Pain (Pain Scale 1-3) 01/20/20 23:00 02/18/20 18:59 Dextrose (Dextrose 50%) 25 ml Q30M PRN IV Hypoglycemia 01/20/20 20:00 04/18/20 18:59 Dextrose (Dextrose 50%) 50 ml Q30M PRN IV Hypoglycemia 01/20/20 20:00 04/18/20 18:59 Heparin Sodium (Porcine) (Heparin 5000 units/ml) 5,000 units EVERY 12 HOURS SUBQ 01/20/20 21:00 03/04/20 20:59 01/26/20 08:55 Insulin Aspart (NovoLOG) EVERY 6 HOURS SUBQ 01/21/20 00:00 04/18/20 20:59 Memantine (Namenda) 5 mg EVERY 12 HOURS GT 01/20/20 21:00 02/19/20 17:59 01/26/20 08:50 Piperacillin Sod/ Tazobactam Sod 3.375 gm/Sodium Chloride 110 ml @ 27.5 mls/hr Q8HR IVPB 01/22/20 14:00 01/28/20 23:59 01/26/20 06:26 Potassium Chloride/Sodium Chloride 1,000 ml @ 50 mls/hr Q20H IV 01/20/20 19:45 02/18/20 20:59 01/25/20 20:49 Vancomycin HCl (Vanco rx to dose) 1 ea DAILY PRN MISC Per rx protocol 01/21/20 09:00 02/18/20 18:29 Vancomycin HCl 1 gm/Dextrose 275 ml @ 183.708 mls/hr Q12H IVPB 01/21/20 03:00 01/29/20 23:59 01/26/20 03:35 Miguel Roche MD Jan 26, 2020 11:11
--- NOTE | 2020-01-26 11:24 | NUR ---
*-*DISCHARGE PLANNING*-* PATIENT HAS BEEN REFERRED TO: [facility] P: [phone] F: [phone] Addendum: 01/26/20 at 1404 by DUKE COATS CM *-*DISCHARGE PLANNING*-* S/W PRASHANTH, FROM [facility] P: [phone], WILL ACCEPT PATIENT UPON DISCHARGE ROOM#32.D. ~~~~~~~~~~~~WATING FOR DISCHARGE ORDER~~~~~~~ [employer] HAS BEEN NOTIFIED. Addendum: 01/26/20 at 1508 by DUKE COATS CM DISREGARD NOTE ABOVE. -*DISCHARGE PLANNING*-* S/W PRASHANTH, FROM [facility], WILL ACCEPT PATIENT UPON DISCHARGE ROOM#32.D. ~~~~~~~~~~~~WATING FOR DISCHARGE ORDER~~~~~~~ [employer] HAS BEEN NOTIFIED.
--- NOTE | 2020-01-26 12:11 | Infectious Diseases Prog Note ---
Assessment/Plan Assessment/Plan Afebrile No leukocytosis Mild transaminitis PNA-COVID19 testing neg x2 01/18 SARS-COV 2 PCR neg (1st sample); 01/21 2nd sample neg flu swab neg 01/23 CXR: Decreased right basilar infiltrate, over 5 days. CXR: Nodular and reticular right basilar opacities. Nonspecific, could indicate acute inflammation versus chronic postinflammatory changes, among many other possibilities. legionella ag urine, M. pneumonia IgM neg Gram positive bacteremia-contaminant 01/18 BCx: diptheroids; 01/21 Bcx NTD Multiple pressure injuries but healing, no evidence of infection QTc 435 MRSA nares positive Psych disorder COPD BPH DM Seizure disorder dementia HTN GERD anemia G tube suprapubic catheter, SP exchange 12/28 Plan: zosyn and vanc #5/5 SP ceftriaxone and azithromycin #1 f/u sputum cx f/u BCx Dc COVID isolation monitor temp and CBC monitor resp status DW RN Subjective Allergies: Coded Allergies: No Known Allergies (Unverified , 04/08/16) Subjective afebrile repeat bcx NTD no leukocytosis 2nd covid neg Objective Vital Signs Last 24 Hour Vital Signs Date Time Temp Pulse Resp B/P (MAP) Pulse Ox O2 Delivery O2 Flow Rate FiO2 01/26/20 09:59 97.7 65 20 143/81 (101) 100 01/26/20 09:59 65 01/26/20 09:00 Room Air 01/26/20 08:00 97.7 65 18 143/81 (101) 100 01/26/20 04:00 98.0 58 18 138/76 (96) 98 01/26/20 04:00 58 01/26/20 00:00 97.9 66 18 142/80 (100) 97 01/26/20 00:00 66 01/25/20 21:00 Room Air 01/25/20 20:00 98.0 62 18 159/89 (112) 99 01/25/20 20:00 61 01/25/20 16:00 97.9 58 20 150/81 (104) 99 01/25/20 16:00 58 01/25/20 12:00 98.6 62 20 147/84 (105) 99 01/25/20 12:00 62 Height (Feet): 5 Height (Inches): 9.00 Weight (Pounds): 154 Objective not seen to limit COVID19 exposure Laboratory Tests Test 01/26/20 06:19 White Blood Count 7.4 K/UL (4.8-10.8) Red Blood Count 3.09 M/UL (4.70-6.10) L Hemoglobin 9.4 G/DL (14.2-18.0) L Hematocrit 26.3 % (42.0-52.0) L Mean Corpuscular Volume 85 FL (80-99) Mean Corpuscular Hemoglobin 30.5 PG (27.0-31.0) Mean Corpuscular Hemoglobin Concent 35.8 G/DL (32.0-36.0) Red Cell Distribution Width 12.3 % (11.6-14.8) Platelet Count 179 K/UL (150-450) Mean Platelet Volume 6.1 FL (6.5-10.1) L Neutrophils (%) (Auto) 64.5 % (45.0-75.0) Lymphocytes (%) (Auto) 23.2 % (20.0-45.0) Monocytes (%) (Auto) 9.2 % (1.0-10.0) Eosinophils (%) (Auto) 2.3 % (0.0-3.0) Basophils (%) (Auto) 0.8 % (0.0-2.0) Sodium Level 144 MMOL/L (136-145) Potassium Level 3.3 MMOL/L (3.5-5.1) L Chloride Level 107 MMOL/L (98-107) Carbon Dioxide Level 29 MMOL/L (21-32) Anion Gap 8 mmol/L (5-15) Blood Urea Nitrogen 10 mg/dL (7-18) Creatinine 1.0 MG/DL (0.55-1.30) Estimat Glomerular Filtration Rate > 60 mL/min (>60) Glucose Level 160 MG/DL (74-106) H Calcium Level 9.1 MG/DL (8.5-10.1) Current Medications Medications (Trade) Dose Ordered Sig/Angel Route PRN Reason Start Time Stop Time Status Last Admin Dose Admin Acetaminophen (Tylenol) 650 mg Q4H PRN ORAL Mild Pain (Pain Scale 1-3) 01/20/20 23:00 02/18/20 18:59 Dextrose (Dextrose 50%) 25 ml Q30M PRN IV Hypoglycemia 01/20/20 20:00 04/18/20 18:59 Dextrose (Dextrose 50%) 50 ml Q30M PRN IV Hypoglycemia 01/20/20 20:00 04/18/20 18:59 Heparin Sodium (Porcine) (Heparin 5000 units/ml) 5,000 units EVERY 12 HOURS SUBQ 01/20/20 21:00 03/04/20 20:59 01/26/20 08:55 Insulin Aspart (NovoLOG) EVERY 6 HOURS SUBQ 01/21/20 00:00 04/18/20 20:59 Memantine (Namenda) 5 mg EVERY 12 HOURS GT 01/20/20 21:00 02/19/20 17:59 01/26/20 08:50 Piperacillin Sod/ Tazobactam Sod 3.375 gm/Sodium Chloride 110 ml @ 27.5 mls/hr Q8HR IVPB 01/22/20 14:00 01/28/20 23:59 01/26/20 06:26 Potassium Chloride/Sodium Chloride 1,000 ml @ 50 mls/hr Q20H IV 01/20/20 19:45 02/18/20 20:59 01/25/20 20:49 Vancomycin HCl (Vanco rx to dose) 1 ea DAILY PRN MISC Per rx protocol 01/21/20 09:00 02/18/20 18:29 Vancomycin HCl 1 gm/Dextrose 275 ml @ 183.708 mls/hr Q12H IVPB 01/21/20 03:00 01/29/20 23:59 01/26/20 03:35 Laura Swartz M.D. Jan 26, 2020 12:11
--- NOTE | 2020-01-26 12:41 | General Progress Note ---
Assessment/Plan Problem List: (1) Suspected COVID-19 virus infection ICD Codes: R68.89 - Other general symptoms and signs SNOMED: 943725021 (2) Pneumonia ICD Codes: J18.9 - Pneumonia, unspecified organism SNOMED: 594246738 (3) COPD (chronic obstructive pulmonary disease) ICD Codes: J44.9 - Chronic obstructive pulmonary disease, unspecified SNOMED: 37604247 (4) Anemia ICD Codes: D64.9 - Anemia, unspecified SNOMED: 855472509 (5) Diabetes ICD Codes: E11.9 - Type 2 diabetes mellitus without complications SNOMED: 14849184 (6) Encephalopathy ICD Codes: G93.40 - Encephalopathy, unspecified SNOMED: 63024358, 683295112 (7) HTN (hypertension) ICD Codes: I10 - Essential (primary) hypertension SNOMED: 65586247 (8) Decubitus skin ulcer ICD Codes: L89.90 - Pressure ulcer of unspecified site, unspecified stage SNOMED: 372545071 (9) Malnutrition ICD Codes: E46 - Unspecified protein-calorie malnutrition SNOMED: 46131128 Status: stable, progressing Assessment/Plan: o2 pulm tx abx pt diet eval cbc bmp am dc plan if clear Subjective Constitutional: Reports: weakness Allergies: Coded Allergies: No Known Allergies (Unverified , 04/08/16) All Systems: reviewed and negative except above Subjective o2nc sleeping Objective Last 24 Hour Vital Signs Date Time Temp Pulse Resp B/P (MAP) Pulse Ox O2 Delivery O2 Flow Rate FiO2 01/26/20 09:59 97.7 65 20 143/81 (101) 100 01/26/20 09:59 65 01/26/20 09:00 Room Air 01/26/20 08:00 97.7 65 18 143/81 (101) 100 01/26/20 04:00 98.0 58 18 138/76 (96) 98 01/26/20 04:00 58 01/26/20 00:00 97.9 66 18 142/80 (100) 97 01/26/20 00:00 66 01/25/20 21:00 Room Air 01/25/20 20:00 98.0 62 18 159/89 (112) 99 01/25/20 20:00 61 01/25/20 16:00 97.9 58 20 150/81 (104) 99 01/25/20 16:00 58 Intake and Output 01/25/20 01/26/20 19:00 07:00 Output Total 1200 ml Balance -1200 ml Output Urine Total 1200 ml # Voids 2 # Bowel Movements 2 Laboratory Tests 01/26/20 06:19: White Blood Count 7.4, Red Blood Count 3.09L, Hemoglobin 9.4L, Hematocrit 26.3L , Mean Corpuscular Volume 85, Mean Corpuscular Hemoglobin 30.5, Mean Corpuscular Hemoglobin Concent 35.8, Red Cell Distribution Width 12.3, Platelet Count 179, Mean Platelet Volume 6.1L, Neutrophils (%) (Auto) 64.5, Lymphocytes ( %) (Auto) 23.2, Monocytes (%) (Auto) 9.2, Eosinophils (%) (Auto) 2.3, Basophils (%) (Auto) 0.8, Sodium Level 144, Potassium Level 3.3L, Chloride Level 107, Carbon Dioxide Level 29, Anion Gap 8, Blood Urea Nitrogen 10, Creatinine 1.0, Estimat Glomerular Filtration Rate > 60, Glucose Level 160H, Calcium Level 9.1 Height (Feet): 5 Height (Inches): 9.00 Weight (Pounds): 154 EENT: normal ENT inspection Neck: normal alignment Cardiovascular: normal peripheral pulses, normal rate, regular rhythm Respiratory/Chest: chest wall non-tender, lungs clear, normal breath sounds Abdomen: normal bowel sounds, non tender, soft Extremities: normal inspection Edema: no edema noted Arm (L), no edema noted Arm (R), no edema noted Leg (L), no edema noted Leg (R), no edema noted Pedal (L), no edema noted Pedal (R), no edema noted Generalized Neurologic: motor weakness Skin: normal pigmentation, warm/dry Tone Dietz DO Jan 26, 2020 12:41
--- NOTE | 2020-01-26 13:17 | Surgery Progress Note ---
Surgery Progress Note Subjective Additional Comments improved covid negative d/c planning labs okay eaxm stable push intake Objective Last 24 Hour Vital Signs Date Time Temp Pulse Resp B/P (MAP) Pulse Ox O2 Delivery O2 Flow Rate FiO2 01/26/20 12:00 97.5 63 20 147/78 (101) 100 01/26/20 12:00 63 01/26/20 09:59 97.7 65 20 143/81 (101) 100 01/26/20 09:59 65 01/26/20 09:00 Room Air 01/26/20 08:00 97.7 65 18 143/81 (101) 100 01/26/20 04:00 98.0 58 18 138/76 (96) 98 01/26/20 04:00 58 01/26/20 00:00 97.9 66 18 142/80 (100) 97 01/26/20 00:00 66 01/25/20 21:00 Room Air 01/25/20 20:00 98.0 62 18 159/89 (112) 99 01/25/20 20:00 61 01/25/20 16:00 97.9 58 20 150/81 (104) 99 01/25/20 16:00 58 I&O Intake and Output 01/25/20 01/26/20 19:00 07:00 Output Total 1200 ml Balance -1200 ml Output Urine Total 1200 ml # Voids 2 # Bowel Movements 2 Dressing: saturated Wound: clean Cardiovascular: RSR Respiratory: decreased breath sounds Abdomen: soft, non-tender, present bowel sounds Extremities: edema, no tenderness, no cyanosis, other Laboratory Tests Test 01/26/20 06:19 White Blood Count 7.4 K/UL (4.8-10.8) Red Blood Count 3.09 M/UL (4.70-6.10) L Hemoglobin 9.4 G/DL (14.2-18.0) L Hematocrit 26.3 % (42.0-52.0) L Mean Corpuscular Volume 85 FL (80-99) Mean Corpuscular Hemoglobin 30.5 PG (27.0-31.0) Mean Corpuscular Hemoglobin Concent 35.8 G/DL (32.0-36.0) Red Cell Distribution Width 12.3 % (11.6-14.8) Platelet Count 179 K/UL (150-450) Mean Platelet Volume 6.1 FL (6.5-10.1) L Neutrophils (%) (Auto) 64.5 % (45.0-75.0) Lymphocytes (%) (Auto) 23.2 % (20.0-45.0) Monocytes (%) (Auto) 9.2 % (1.0-10.0) Eosinophils (%) (Auto) 2.3 % (0.0-3.0) Basophils (%) (Auto) 0.8 % (0.0-2.0) Sodium Level 144 MMOL/L (136-145) Potassium Level 3.3 MMOL/L (3.5-5.1) L Chloride Level 107 MMOL/L (98-107) Carbon Dioxide Level 29 MMOL/L (21-32) Anion Gap 8 mmol/L (5-15) Blood Urea Nitrogen 10 mg/dL (7-18) Creatinine 1.0 MG/DL (0.55-1.30) Estimat Glomerular Filtration Rate > 60 mL/min (>60) Glucose Level 160 MG/DL (74-106) H Calcium Level 9.1 MG/DL (8.5-10.1) Plan Problems: (1) Decubitus skin ulcer Assessment & Plan: Patient presented on admission with contractures, multiple areas of hyperpigmentation from previous pressure injuries. Hyperpigmentation noted to Sacrum, R and L trochanteric, dorso/lateral R foot and distal/lateral R foot and R heel. Both heels are soft but blanchable. Scrotum and perineum are erythematous but dry An area of erythema noted to medial upper R thigh. Tx.Plan: Apply Moisture Barrier Paste to sacrum. Cover with Optifoam drsg. Change every 3 days and prn. Apply Moisture Barrier Paste to scrotum, Bilat groin and both ischial tuberosities with each incontinence care. Apply Cavilon Skin Barrier to R and L trochanteric areas,Both heels and lateral aspects of both feet. Cover each area with Optifoam drsg.Change every 7 days and prn. Apply Cavilon Skin Barrier to both heels. Cover each heel with Optifoam drsg. Change every 7 days and prn. Reposition at least every 2hours or as tolerated. Place pillow between knees. Off-load heels with pillow. APM/Paty Mattress overlay. Nutritional optimization (2) Malnutrition Assessment & Plan: DAILY ESTIMATED NEEDS: Needs based on DM, CLOTH DOFFER TF, sepsis/ 73kg 22-28 kcals/kg 9384-4491 total kcals 1-2 g protein/kg 73-146 g total protein 25-30 mL/kg 7348-4432 total fluid mLs NUTRITION DIAGNOSIS: Swallowing difficulty R/T dysphagia as evidenced by PEG dep. CURRENT TF:Glucerna 1.2 @ 65ml/hr x 24 hrs ENTERAL NUTRITION RECOMMENDATIONS: Glucerna 1.2 @ 65ml/hr x 24 hrs to provide 1560ml, 1872kcal, 94g prot, 1256ml free water * Maintain current TF -> meets 100% est kcal/prot needs * HOB over 30 degrees/ water flush per MD ADDITIONAL RECOMMENDATIONS: * Calibrated bedscale wt for accurate CBW * Consider adding PARISA BID via PEG for skin integrity * Monitor lytes, replete as needed * Monitor BGs, need for additional hypoglycemics (3) Pneumonia (4) COPD (chronic obstructive pulmonary disease) Assessment & Plan: There is decreased reticular nodular infiltrate at the right lung base as compared to prior study. No new infiltrates. The remaining lungs pleural spaces are clear. The heart size is normal. A surgical clip projects at the aortopulmonary window Impression: Decreased right basilar infiltrate, over 5 days. (5) Anemia (6) Cellulitis Assessment & Plan: perirectal cellulitis from incontinence incontinence associated dermatitis care instructions given will monitor improving great nursing care appreciated as improvement noted (7) Diabetes (8) Encephalopathy (9) HTN (hypertension) (10) BPH (benign prostatic hyperplasia) (11) Mandibular pain Christiano Castelan Jan 26, 2020 13:17
--- NOTE | 2020-01-26 14:33 | NUR ---
P.T NOTE: P.T EVALUATION COMPLETED. PATIENT IS ALERT HOWEVER NON VERBAL , ESSENTIALLY NOT FOLLOWING SIMPLE COMMANDS. PATIENT IS DEPENDENT IN ALL BASIC ADL/FUNCTIONAL MOBILITIES. PATIENT IS BASELINE DEPENDENT AND NOT CANDIDATE FOR SKILLED P.T SERVICES. DC P.T SERVICES. RECOMMEND D/C TO PRIOR LIVING ARRANGEMENT.
[2020-01-26] MEDS: NS w/KCl 20mEq 1000ml 1,000 ML IV SCH (15:45)
--- NOTE | 2020-01-26 15:46 | NUR ---
NURSE NOTES: Both Dr. Sawrtz and Dr. Roche cleared the patient for discharge.
--- NOTE | 2020-01-26 19:13 | NUR ---
HAND-OFF: Report given to sridhar Mcleod plan of care.
--- NOTE | 2020-01-26 20:00 | NUR ---
NURSE NOTES: RECEIVED PATIENT LYING IN BED, AWAKE, EYES OPEN, NON VERBAL, ALL NEEDS ANTICIPATED AND MEET BY NURSING STAFF. HEAD OF BED ELEVATED TO FACILITATE BREATHING. 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 PATIENT CONTRACTED, REQUIRE MAX ASSIST WITH ADL'S, REPOSITIONED FOR COMFORT/PRESSURE RELIEF, TOLERATED WELL, P200 MATTRESS. SUPRA PUBIC CATHETER INTACT DRAINING YELLOW URINE VIA GRAVITY, NO SIGNS OF SEDEMENT. SIDE RAILS UP X3/BED IN LOWEST POSITION FOR SAFETY, FREQUENT ROUNDING FOR SAFETY/NEEDS. CONTINUE WITH CURRENT PLAN OF CARE. NAD.
[2020-01-27] VITALS: BP 141/73
[2020-01-27 02:28] LABS: BASOPHILS % (AUTO) 0.8 % (0.0-2.0); EOSINOPHILS % (AUTO) 2.5 % (0.0-3.0); HEMATOCRIT 26.2 % (42.0-52.0); HEMOGLOBIN 9.2 G/DL (14.2-18.0); MEAN CORPUSCULAR VOLUME 84 FL (80-99); NEUTROPHILS % (AUTO) 65.7 % (45.0-75.0); PLATELET COUNT 197 K/UL (150-450); RED BLOOD COUNT 3.11 M/UL (4.70-6.10); RED CELL DISTRIBUTION WIDTH 12.5 % (11.6-14.8); WHITE BLOOD COUNT 7.4 K/UL (4.8-10.8)
[2020-01-27 02:58] LABS: ANION GAP 8 mmol/L (5-15); BLOOD UREA NITROGEN 9 mg/dL (7-18); CARBON DIOXIDE 29 MMOL/L (21-32); CHLORIDE 107 MMOL/L (98-107); CREATININE 1.1 MG/DL (0.55-1.30); POTASSIUM 3.1 MMOL/L (3.5-5.1); SODIUM 144 MMOL/L (136-145)
[2020-01-27 04:00] VITALS: BP 141/61
[2020-01-27] MEDS: NS w/KCl 20mEq 1000ml 1,000 ML IV SCH (05:05)
[2020-01-27] MEDS: Piperacillin/Tazobactam 3.375 GM in NS 110 ML IVPB SCH (05:27)
[2020-01-27] MEDS: NovoLOG Insulin Flexpen SUBQ SCH ×2 (05:57)
[2020-01-27] MEDS ORDERED: NovoLOG Insulin Flexpen SUBQ SCH (06:00)
--- NOTE | 2020-01-27 06:47 | NUR ---
NURSE NOTES: RESTED WELL, NO SIGNIFICANT CHANGE OF CONDITION NOTED THROUGHOUT THE NIGHT. SAFETY MAINTAINED. NAD.
--- NOTE | 2020-01-27 06:59 | General Progress Note ---
Assessment/Plan Status: stable, progressing Assessment/Plan: 1. History of pneumonia. 2. COPD. 3. Anemia. 4. Diabetes. 5. Hypertension. 6. Dysphagia requiring G-tube placement. 7. History of chronic suprapubic catheter placement. fu H&H prn blood transfusion fu stool ob>>>neg GTF replace K GI procedures if needed Subjective ROS Limited/Unobtainable: No Allergies: Coded Allergies: No Known Allergies (Unverified , 04/08/16) Objective Last 24 Hour Vital Signs Date Time Temp Pulse Resp B/P (MAP) Pulse Ox O2 Delivery O2 Flow Rate FiO2 01/27/20 04:00 98.7 54 19 141/61 (87) 98 01/27/20 04:00 58 01/27/20 04:00 Nasal Cannula 2.0 01/27/20 00:00 58 01/27/20 00:00 Nasal Cannula 2.0 01/27/20 00:00 99.1 65 21 141/73 (95) 97 01/26/20 21:00 60 01/26/20 21:00 Nasal Cannula 2.0 01/26/20 20:00 97.7 64 18 131/86 (101) 99 01/26/20 16:00 97.6 63 20 135/81 (99) 100 01/26/20 16:00 63 01/26/20 12:00 97.5 63 20 147/78 (101) 100 01/26/20 12:00 63 01/26/20 09:59 97.7 65 20 143/81 (101) 100 01/26/20 09:59 65 01/26/20 09:00 Room Air 01/26/20 08:00 97.7 65 18 143/81 (101) 100 Intake and Output 01/26/20 01/27/20 19:00 07:00 Intake Total 110.0 ml Output Total 500 ml Balance -500 ml 110.0 ml IV Total 110.0 ml Output Urine Total 500 ml # Voids 1 3 # Bowel Movements 1 Laboratory Tests 01/27/20 02:05: White Blood Count 7.4, Red Blood Count 3.11L, Hemoglobin 9.2L, Hematocrit 26.2L , Mean Corpuscular Volume 84, Mean Corpuscular Hemoglobin 29.7, Mean Corpuscular Hemoglobin Concent 35.2, Red Cell Distribution Width 12.5, Platelet Count 197, Mean Platelet Volume 5.9L, Neutrophils (%) (Auto) 65.7, Lymphocytes ( %) (Auto) 21.0, Monocytes (%) (Auto) 10.0, Eosinophils (%) (Auto) 2.5, Basophils (%) (Auto) 0.8, Sodium Level 144, Potassium Level 3.1L, Chloride Level 107, Carbon Dioxide Level 29, Anion Gap 8, Blood Urea Nitrogen 9, Creatinine 1.1, Estimat Glomerular Filtration Rate > 60, Glucose Level 88, Calcium Level 9.0, Vancomycin Level Trough 33.1H Height (Feet): 5 Height (Inches): 9.00 Weight (Pounds): 154 General Appearance: no apparent distress EENT: normal ENT inspection Neck: supple Cardiovascular: normal rate Respiratory/Chest: decreased breath sounds Abdomen: normal bowel sounds, non tender, soft Extremities: non-tender Ernie Bloom MD Jan 27, 2020 06:59
--- NOTE | 2020-01-27 07:10 | NUR ---
NURSE NOTES: Received report from CORBY Mcleod. Patient is AO x 1. with no signs of distress or pain noted at this time. IV checked and flushed, no signs of erythema, infiltration, or bleeding. Zosyn running at this time. G-tube flushed and patent. Bed is in the lowest position, call light is within reach, bed alarm on. Will continue with the plan of care.
--- NOTE | 2020-01-27 07:30 | NUR ---
HAND-OFF: Report given to sharri jean.
[2020-01-27 08:00] VITALS: BP 156/70
[2020-01-27] MEDS: Heparin 5000 units/ml inj SUBQ SCH (08:02)
[2020-01-27] MEDS: Memantine 5 MG TAB GT SCH (08:02)
--- NOTE | 2020-01-27 08:43 | Progress Note ---
DATE: 01/26/2020 SUBJECTIVE: This is a 69-year-old male patient who currently has COPD, pneumonia, anemia, cellulitis, diabetes, hypertension, BPH and he has declining cognition below his baseline, he is ruled out COVID-19, so his attending has requested daily psychiatric consultation because he has altered mental status and decline in cognition below his baseline. MENTAL STATUS EXAMINATION: This is a 69-year-old male. Appearance is disheveled. Attitude, irritable and agitated. Affect restricted. Intellect, poor. Mood, depressed and anxious. Motor activity, psychomotor agitation. Attention is poor. Orientation x2. Speech is low volume, slurred. Thought process, disorganized and illogical. Insight and judgment poor. DIAGNOSIS: Major depressive disorder, severe, recurrent with psychotic features. PLAN: Treat with Namenda 5 mg per G-tube q.12 hours to prevent any further decline in his cognition. Chart reviewed. Discussed with staff. Seen and assessed at bedside. 20 minutes of behavioral management provided. Letty Mcgowan M.D. DR: Tom JOB#: [id number] CC:
--- NOTE | 2020-01-27 08:44 | Progress Note ---
DATE: 01/27/2020 SUBJECTIVE: This is a 69-year-old male patient with pneumonia, rule out COVID-19, but this patient has altered mental status and some decline in cognition below his baseline, worsened by stress of his medical illness, altered mental status. That is why, his attending has requested daily psychiatric consultation. MENTAL STATUS EXAMINATION: This is a 69-year-old male. Appearance is disheveled. Attitude, irritable and agitated. Affect, guarded and restricted. Intellect, poor. Mood, depressed and anxious. Motor activity, psychomotor agitation. Attention span is poor. Orientation x2. Speech is low volume, slurred. Thought process, disorganized and illogical. Insight and judgment poor. DIAGNOSIS: Major depressive disorder, severe, recurrent with psychotic features, rule out dementia with psychosis. PLAN: This patient treated with medication regimen of Namenda 5 mg per G-tube q.12 hours to prevent any further decline in his cognition. A 20 minutes of behavioral management. Chart reviewed. Discussed with staff. Seen and assessed at bedside. Letty Mcgowan M.D. DR: BRYCE JOB#: [id number] CC:
--- NOTE | 2020-01-27 08:47 | NUR ---
RD ASSESSMENT & RECOMMENDATIONS SEE CARE ACTIVITY FOR COMPLETE ASSESSMENT DAILY ESTIMATED NEEDS: Needs based on DM, PRESENTATION SPECIALIST TF, sepsis/ 53.6kg 25-35 kcals/kg 8427-1116 total kcals 1-2 g protein/kg 73-146 g total protein 25-30 mL/kg 4971-1317 total fluid mLs NUTRITION DIAGNOSIS: Swallowing difficulty R/T dysphagia as evidenced by PEG dep. CURRENT TF:Glucerna 1.2 @ 390ml QID bolus ENTERAL NUTRITION RECOMMENDATIONS: Glucerna 1.2 @ 335ml QID to provide 1340ml, 1608kcal, 80g prot, 1079ml free water * Rec to REDUCE current bolus feeds to 335ml qid based on updated HT and WT per SNF records to meet 100% est kcal/prot needs * HOB over 30 degrees/ water flush per MD ------- ADDITIONAL RECOMMENDATIONS: * Calibrated bedscale wt for accurate CBW * Consider adding PARISA BID via PEG for skin integrity * Monitor lytes, replete as needed (K low, on repletion) * Monitor BGs, need for additional hypoglycemics -> good glycemic control -> rec to increase bedside BG testing while on bolus feeds, check q3hrs
--- NOTE | 2020-01-27 09:10 | General Progress Note ---
Assessment/Plan Problem List: (1) Suspected COVID-19 virus infection ICD Codes: R68.89 - Other general symptoms and signs SNOMED: 771253896 (2) Pneumonia ICD Codes: J18.9 - Pneumonia, unspecified organism SNOMED: 488406871 (3) COPD (chronic obstructive pulmonary disease) ICD Codes: J44.9 - Chronic obstructive pulmonary disease, unspecified SNOMED: 95128041 (4) Anemia ICD Codes: D64.9 - Anemia, unspecified SNOMED: 426998841 (5) Diabetes ICD Codes: E11.9 - Type 2 diabetes mellitus without complications SNOMED: 01063384 (6) Encephalopathy ICD Codes: G93.40 - Encephalopathy, unspecified SNOMED: 45703148, 176052705 (7) HTN (hypertension) ICD Codes: I10 - Essential (primary) hypertension SNOMED: 98420568 (8) Decubitus skin ulcer ICD Codes: L89.90 - Pressure ulcer of unspecified site, unspecified stage SNOMED: 732011692 (9) Malnutrition ICD Codes: E46 - Unspecified protein-calorie malnutrition SNOMED: 45261542 Status: stable, progressing Assessment/Plan: o2 pulm tx abx pt diet eval cbc bmp am dc if clear Subjective Constitutional: Reports: weakness Allergies: Coded Allergies: No Known Allergies (Unverified , 04/08/16) All Systems: reviewed and negative except above Subjective o2nc sleeping Objective Last 24 Hour Vital Signs Date Time Temp Pulse Resp B/P (MAP) Pulse Ox O2 Delivery O2 Flow Rate FiO2 01/27/20 04:00 98.7 54 19 141/61 (87) 98 01/27/20 04:00 58 01/27/20 04:00 Nasal Cannula 2.0 01/27/20 00:00 58 01/27/20 00:00 Nasal Cannula 2.0 01/27/20 00:00 99.1 65 21 141/73 (95) 97 01/26/20 21:00 60 01/26/20 21:00 Nasal Cannula 2.0 01/26/20 20:00 97.7 64 18 131/86 (101) 99 01/26/20 16:00 97.6 63 20 135/81 (99) 100 01/26/20 16:00 63 01/26/20 12:00 97.5 63 20 147/78 (101) 100 01/26/20 12:00 63 01/26/20 09:59 97.7 65 20 143/81 (101) 100 01/26/20 09:59 65 Intake and Output 01/26/20 01/27/20 19:00 07:00 Intake Total 110.0 ml Output Total 500 ml Balance -500 ml 110.0 ml IV Total 110.0 ml Output Urine Total 500 ml # Voids 1 3 # Bowel Movements 1 Laboratory Tests 01/27/20 02:05: White Blood Count 7.4, Red Blood Count 3.11L, Hemoglobin 9.2L, Hematocrit 26.2L , Mean Corpuscular Volume 84, Mean Corpuscular Hemoglobin 29.7, Mean Corpuscular Hemoglobin Concent 35.2, Red Cell Distribution Width 12.5, Platelet Count 197, Mean Platelet Volume 5.9L, Neutrophils (%) (Auto) 65.7, Lymphocytes ( %) (Auto) 21.0, Monocytes (%) (Auto) 10.0, Eosinophils (%) (Auto) 2.5, Basophils (%) (Auto) 0.8, Sodium Level 144, Potassium Level 3.1L, Chloride Level 107, Carbon Dioxide Level 29, Anion Gap 8, Blood Urea Nitrogen 9, Creatinine 1.1, Estimat Glomerular Filtration Rate > 60, Glucose Level 88, Calcium Level 9.0, Vancomycin Level Trough 33.1H Height (Feet): 5 Height (Inches): 9.00 Weight (Pounds): 154 General Appearance: lethargic EENT: normal ENT inspection Neck: normal alignment Cardiovascular: normal peripheral pulses, normal rate, regular rhythm Respiratory/Chest: chest wall non-tender, lungs clear, normal breath sounds Abdomen: normal bowel sounds, non tender, soft Extremities: normal inspection Edema: no edema noted Arm (L), no edema noted Arm (R), no edema noted Leg (L), no edema noted Leg (R), no edema noted Pedal (L), no edema noted Pedal (R), no edema noted Generalized Neurologic: motor weakness Skin: normal pigmentation, warm/dry Tone Dietz DO Jan 27, 2020 09:10
--- NOTE | 2020-01-27 09:23 | NUR ---
*-*DISCHARGE PLANNED*-* PATIENT HAS BEEN ACCEPTED AND WILL BE DISCHARGED TO BACK TO: [facility] FOR NURSE TO NURSE REPORT P: [phone] ROOM#32.D [facility] TRANSPORTATION SET FOR 11AM S/W [id number] S/W PATIENTS , DEBORAH MALDONADO, WHO IS IN AGREEMENT TO DISCHARGE AND TRANSPORTATION Addendum: 01/27/20 at 1120 by DUKE COATS CM *-*DISCHARGE PLANNED*-* PATIENT HAS BEEN ACCEPTED AND WILL BE DISCHARGED TO BACK TO: [facility] FOR NURSE TO NURSE REPORT P: [phone] ROOM#32.D [facility] TRANSPORTATION SET FOR 11AM S/W [id number] S/W PATIENTS , DEBORAH MALDONADO, WHO IS IN AGREEMENT TO DISCHARGE AND TRANSPORTATION
--- NOTE | 2020-01-27 10:28 | Pulmonology Progress Note ---
Assessment/Plan Assessment/Plan IMPRESSION: 1. Right lung pneumonia. 2. [facility] resident. DISCUSSION: Continue abx O2 prn; Is COVID 19 negative Currently on RA Pulmonary hygiene Will follow OK to dc Miguel Roche M.D. Subjective Interval Events: None new Constitutional: Reports: no symptoms HEENT: Repors: no symptoms Respiratory: Reports: no symptoms Cardiovascular: Reports: no symptoms Allergies: Coded Allergies: No Known Allergies (Unverified , 04/08/16) Objective Last 24 Hour Vital Signs Date Time Temp Pulse Resp B/P (MAP) Pulse Ox O2 Delivery O2 Flow Rate FiO2 01/27/20 09:00 Nasal Cannula 2.0 01/27/20 08:00 97.9 61 20 156/70 (98) 99 01/27/20 08:00 61 01/27/20 04:00 98.7 54 19 141/61 (87) 98 01/27/20 04:00 58 01/27/20 04:00 Nasal Cannula 2.0 01/27/20 00:00 58 01/27/20 00:00 Nasal Cannula 2.0 01/27/20 00:00 99.1 65 21 141/73 (95) 97 01/26/20 21:00 60 01/26/20 21:00 Nasal Cannula 2.0 01/26/20 20:00 97.7 64 18 131/86 (101) 99 01/26/20 16:00 97.6 63 20 135/81 (99) 100 01/26/20 16:00 63 01/26/20 12:00 97.5 63 20 147/78 (101) 100 01/26/20 12:00 63 Intake and Output 01/26/20 01/27/20 19:00 07:00 Intake Total 110.0 ml Output Total 500 ml Balance -500 ml 110.0 ml IV Total 110.0 ml Output Urine Total 500 ml # Voids 1 3 # Bowel Movements 1 General Appearance: no acute distress HEENT: normocephalic Respiratory/Chest: chest wall non-tender Cardiovascular: normal peripheral pulses Laboratory Tests 01/27/20 02:05: White Blood Count 7.4, Red Blood Count 3.11L, Hemoglobin 9.2L, Hematocrit 26.2L , Mean Corpuscular Volume 84, Mean Corpuscular Hemoglobin 29.7, Mean Corpuscular Hemoglobin Concent 35.2, Red Cell Distribution Width 12.5, Platelet Count 197, Mean Platelet Volume 5.9L, Neutrophils (%) (Auto) 65.7, Lymphocytes ( %) (Auto) 21.0, Monocytes (%) (Auto) 10.0, Eosinophils (%) (Auto) 2.5, Basophils (%) (Auto) 0.8, Sodium Level 144, Potassium Level 3.1L, Chloride Level 107, Carbon Dioxide Level 29, Anion Gap 8, Blood Urea Nitrogen 9, Creatinine 1.1, Estimat Glomerular Filtration Rate > 60, Glucose Level 88, Calcium Level 9.0, Vancomycin Level Trough 33.1H Current Medications Medications (Trade) Dose Ordered Sig/Angel Route PRN Reason Start Time Stop Time Status Last Admin Dose Admin Acetaminophen (Tylenol) 650 mg Q4H PRN ORAL Mild Pain (Pain Scale 1-3) 01/20/20 23:00 02/18/20 18:59 Dextrose (Dextrose 50%) 25 ml Q30M PRN IV Hypoglycemia 01/20/20 20:00 04/18/20 18:59 Dextrose (Dextrose 50%) 50 ml Q30M PRN IV Hypoglycemia 01/20/20 20:00 04/18/20 18:59 Heparin Sodium (Porcine) (Heparin 5000 units/ml) 5,000 units EVERY 12 HOURS SUBQ 01/20/20 21:00 03/04/20 20:59 01/27/20 08:02 Insulin Aspart (NovoLOG) EVERY 6 HOURS SUBQ 01/21/20 00:00 04/18/20 20:59 Memantine (Namenda) 5 mg EVERY 12 HOURS GT 01/20/20 21:00 02/19/20 17:59 01/27/20 08:02 Piperacillin Sod/ Tazobactam Sod 3.375 gm/Sodium Chloride 110 ml @ 27.5 mls/hr Q8HR IVPB 01/22/20 14:00 01/28/20 23:59 01/27/20 05:27 Potassium Chloride/Sodium Chloride 1,000 ml @ 50 mls/hr Q20H IV 01/20/20 19:45 02/18/20 20:59 01/27/20 05:05 Vancomycin HCl (Vanco rx to dose) 1 ea DAILY PRN MISC Per rx protocol 01/21/20 09:00 02/18/20 18:29 Miguel Roche MD Jan 27, 2020 10:28
--- NOTE | 2020-01-27 10:30 | NUR ---
NURSE NOTES: Called patient's family. ángel Castañeda() to notify of patient's discharge.
--- NOTE | 2020-01-27 10:45 | NUR ---
NURSE NOTES: [facility], inter-facility report given to CORBY Izaguirre.
[2020-01-27] MEDS ORDERED: NS 275ml ONE (12:04)
[2020-01-27] MEDS ORDERED: Tubing IV Secondary IV ONE ×2 (12:04)
--- NOTE | 2020-01-27 12:05 | NUR ---
NURSE NOTES: Patient's is discharged per MD order to [facility] via gurney with ambulance personnel. Patient has no belongings and unable to sign. Two nurses signed the belonging list form. site monitor removed. IV removed, no bleeding, no infiltration. G-Tube flushed, patent and clamped. Suprapubic catheter intact and draining to gravity. All discharge protocols followed. Patient is in stable condition.
--- NOTE | 2020-01-27 14:43 | NUR ---
*-*DISCHARGE PLANNED*-* PATIENT HAS BEEN ACCEPTED AND WILL BE DISCHARGED TO BACK TO: [facility] FOR NURSE TO NURSE REPORT P: [phone] ROOM#32.[facility] TRANSPORTATION SET FOR 11AM S/W [id number] S/W PATIENTS , DEBORAH MALDONADO, WHO IS IN AGREEMENT TO DISCHARGE AND TRANSPORTATION
--- NOTE | 2020-01-27 20:59 | Surgery Progress Note ---
Surgery Progress Note Subjective Additional Comments no acute events plan for d/c today much i mproved Objective Last 24 Hour Vital Signs Date Time Temp Pulse Resp B/P (MAP) Pulse Ox O2 Delivery O2 Flow Rate FiO2 01/27/20 09:00 Nasal Cannula 2.0 01/27/20 08:00 97.9 61 20 156/70 (98) 99 01/27/20 08:00 61 01/27/20 04:00 98.7 54 19 141/61 (87) 98 01/27/20 04:00 58 01/27/20 04:00 Nasal Cannula 2.0 01/27/20 00:00 58 01/27/20 00:00 Nasal Cannula 2.0 01/27/20 00:00 99.1 65 21 141/73 (95) 97 01/26/20 21:00 60 01/26/20 21:00 Nasal Cannula 2.0 I&O Intake and Output 01/26/20 01/27/20 19:00 07:00 Intake Total 110.0 ml Output Total 500 ml Balance -500 ml 110.0 ml IV Total 110.0 ml Output Urine Total 500 ml # Voids 1 3 # Bowel Movements 1 Dressing: saturated Wound: clean Cardiovascular: RSR Respiratory: decreased breath sounds Abdomen: soft, non-tender, present bowel sounds Extremities: no edema, no cyanosis Laboratory Tests Test 01/27/20 02:05 White Blood Count 7.4 K/UL (4.8-10.8) Red Blood Count 3.11 M/UL (4.70-6.10) L Hemoglobin 9.2 G/DL (14.2-18.0) L Hematocrit 26.2 % (42.0-52.0) L Mean Corpuscular Volume 84 FL (80-99) Mean Corpuscular Hemoglobin 29.7 PG (27.0-31.0) Mean Corpuscular Hemoglobin Concent 35.2 G/DL (32.0-36.0) Red Cell Distribution Width 12.5 % (11.6-14.8) Platelet Count 197 K/UL (150-450) Mean Platelet Volume 5.9 FL (6.5-10.1) L Neutrophils (%) (Auto) 65.7 % (45.0-75.0) Lymphocytes (%) (Auto) 21.0 % (20.0-45.0) Monocytes (%) (Auto) 10.0 % (1.0-10.0) Eosinophils (%) (Auto) 2.5 % (0.0-3.0) Basophils (%) (Auto) 0.8 % (0.0-2.0) Sodium Level 144 MMOL/L (136-145) Potassium Level 3.1 MMOL/L (3.5-5.1) L Chloride Level 107 MMOL/L (98-107) Carbon Dioxide Level 29 MMOL/L (21-32) Anion Gap 8 mmol/L (5-15) Blood Urea Nitrogen 9 mg/dL (7-18) Creatinine 1.1 MG/DL (0.55-1.30) Estimat Glomerular Filtration Rate > 60 mL/min (>60) Glucose Level 88 MG/DL (74-106) Calcium Level 9.0 MG/DL (8.5-10.1) Vancomycin Level Trough 33.1 ug/mL (5.0-12.0) H Plan Problems: (1) Decubitus skin ulcer Assessment & Plan: Patient presented on admission with contractures, multiple areas of hyperpigmentation from previous pressure injuries. Hyperpigmentation noted to Sacrum, R and L trochanteric, dorso/lateral R foot and distal/lateral R foot and R heel. Both heels are soft but blanchable. Scrotum and perineum are erythematous but dry An area of erythema noted to medial upper R thigh. Tx.Plan: Apply Moisture Barrier Paste to sacrum. Cover with Optifoam drsg. Change every 3 days and prn. Apply Moisture Barrier Paste to scrotum, Bilat groin and both ischial tuberosities with each incontinence care. Apply Cavilon Skin Barrier to R and L trochanteric areas,Both heels and lateral aspects of both feet. Cover each area with Optifoam drsg.Change every 7 days and prn. Apply Cavilon Skin Barrier to both heels. Cover each heel with Optifoam drsg. Change every 7 days and prn. Reposition at least every 2hours or as tolerated. Place pillow between knees. Off-load heels with pillow. APM/Paty Mattress overlay. Nutritional optimization (2) Malnutrition Assessment & Plan: DAILY ESTIMATED NEEDS: Needs based on DM, LOOM OPERATOR TF, sepsis/ 73kg 22-28 kcals/kg 8985-8076 total kcals 1-2 g protein/kg 73-146 g total protein 25-30 mL/kg 5913-5862 total fluid mLs NUTRITION DIAGNOSIS: Swallowing difficulty R/T dysphagia as evidenced by PEG dep. CURRENT TF:Glucerna 1.2 @ 65ml/hr x 24 hrs ENTERAL NUTRITION RECOMMENDATIONS: Glucerna 1.2 @ 65ml/hr x 24 hrs to provide 1560ml, 1872kcal, 94g prot, 1256ml free water * Maintain current TF -> meets 100% est kcal/prot needs * HOB over 30 degrees/ water flush per MD ADDITIONAL RECOMMENDATIONS: * Calibrated bedscale wt for accurate CBW * Consider adding PARISA BID via PEG for skin integrity * Monitor lytes, replete as needed * Monitor BGs, need for additional hypoglycemics (3) Pneumonia (4) COPD (chronic obstructive pulmonary disease) Assessment & Plan: There is decreased reticular nodular infiltrate at the right lung base as compared to prior study. No new infiltrates. The remaining lungs pleural spaces are clear. The heart size is normal. A surgical clip projects at the aortopulmonary window Impression: Decreased right basilar infiltrate, over 5 days. (5) Anemia (6) Cellulitis Assessment & Plan: perirectal cellulitis from incontinence incontinence associated dermatitis care instructions given will monitor improving great nursing care appreciated as improvement noted (7) Diabetes (8) Encephalopathy (9) HTN (hypertension) (10) BPH (benign prostatic hyperplasia) (11) Mandibular pain Additional Comments late entry patient seen earlier okay for d/c\cont above vcare plan upon dc Christiano Castelan Jan 27, 2020 20:59
--- NOTE | 2020-01-29 15:16 | Discharge Summary ---
Discharge Summary Discharge Summary _ DATE OF ADMISSION: 01/19/2020 DATE OF DISCHARGE: 01/27/2020 DISCHARGED BY: Dr. Tone Dietz CONSULTANTS: Dr. Christiano Weaver [facility] HOSPITAL COURSE: Patient is a 69-year-old male, with history of dementia, seizure disorder, pneumonia, presented from assisted facility due to pneumonia. The patient had a chest x-ray that showed right lower lobe pneumonia. There was no reported fever. Patient was unable to provide any history due to baseline altered mental status. Suprapubic catheter was changed on December 28. Upon evaluation at ED, vital signs were stable. Patient was afebrile. Blood work did not show any leukocytosis. Hemoglobin 10, hematocrit 29. Sodium 132. Carbon dioxide was greater than 45. Lactic acid 1.1. Troponin negative. Patient was tested for COVID-19. He was started on broad-spectrum antibiotics. Influenza swab was negative. He was admitted for evaluation of right lower lobe pneumonia. He was continued on empiric antibiotics Zosyn and vancomycin.. He was closely followed by infectious diseases specialist. He was placed on O2 support. He was given pulmonary hygiene. Blood glucose was monitored and was given insulin sliding scale. He underwent psychiatric evaluation. Patient was irritable and agitated. Affect labile. Intellect poor. Thought process disorganized and illogical. He was diagnosed with major depressive disorder, mild recurrent with psychotic features. He was given insight oriented psychotherapy. He was noted to come in with hyperpigmentation to the sacrum, right and left trochanteric, dorsolateral right foot and distal/lateral right foot and right heel. He was given local wound care. He was placed on APM/JULIANA mattress with frequent offloading and repositioning. Nutrition was optimized. COVID test was negative. Blood culture showed gram-positive bacteremia, possibly contaminant. Repeat blood culture did not isolate any growth. There was no leukocytosis and patient remained afebrile. There was a drop in hemoglobin. GI was consulted for evaluation of anemia. Stool OB was negative. Patient had 2- COVID-19 testing. Repeat chest x-ray showed decrease right basilar infiltrate. He was taken off isolation. He was saturating well on NC. Cultures were negative. He was discharged back to SNF. FINAL DIAGNOSES: Healthcare pneumonia, COVID-19 testing negative x2 Mild malnutrition Septic encephalopathy with sepsis Gram-positive bacteremia, contaminant MRSA screen positive COPD BPH Diabetes mellitus Seizure disorder Dementia Hypertension GERD Anemia G-tube status Suprapubic catheter status post exchange of December 28 DISPOSITION: DC to SNF. I have been assigned to complete a discharge summary on this account, I was not involved with the patient's management.--CODY Banks Jacqueline Robles NP Jan 29, 2020 15:16
== END 2020-01-27 12:05 | DRG 871 ==
LOC: EDUNIT# 14:25 → EDBD 14:25 → EMR 15:23 → 2W 15:25 → EDBEDREQ 19:00 → 2E 22:39
DX: A41.9 Sepsis, unspecified organism (principal); J18.9 Pneumonia, unspecified organism; G93.41 Metabolic encephalopathy; K61.1 Rectal abscess; E44.1 Mild protein-calorie malnutrition; Z43.1 Encounter for attention to gastrostomy; G40.89 Other seizures; F33.3 Major depressive disorder, recurrent, severe with psychotic symptoms; Y95 Nosocomial condition; F03.90 Unspecified dementia, unspecified severity, without behavioral disturbance, psychotic disturbance, mood disturbance, and anxiety; I10 Essential (primary) hypertension; L89.152 Pressure ulcer of sacral region, stage 2; L89.622 Pressure ulcer of left heel, stage 2; L89.212 Pressure ulcer of right hip, stage 2; Z22.322 Carrier or suspected carrier of Methicillin resistant Staphylococcus aureus; J44.9 Chronic obstructive pulmonary disease, unspecified; N40.0 Benign prostatic hyperplasia without lower urinary tract symptoms; E11.9 Type 2 diabetes mellitus without complications; K21.9 Gastro-esophageal reflux disease without esophagitis; Z43.5 Encounter for attention to cystostomy; Z87.891 Personal history of nicotine dependence; Z79.84 Long term (current) use of oral hypoglycemic drugs; R68.84 Jaw pain; D64.9 Anemia, unspecified; R13.10 Dysphagia, unspecified; M24.50 Contracture, unspecified joint; L89.159 Pressure ulcer of sacral region, unspecified stage
CPT/HCPCS: 36415; 71045; 80048; 80053; 80202; 82164; 82270; 82550; 82553; 82607; 82746; 83540; 83550; 83605; 84484; 85025; 86710; 86738; 87040; 87070; 87081; 87205; 87324; 87635; 93005; 96365; 96368; 97803; 99285; J1815; J8499

== ENCOUNTER 2020-03-21 20:06 | Inpatient (IN) | payer MEDICARE, MEDICAID ==
[~2020-03-21] VITALS: Ht 170.2 cm; Wt 56.7 kg
[~2020-03-21 20:06] MED LIST changes: +FLOMAX0.4 MG GT; +HEPARIN SO5000 UNIT2 SUBQ; +HYDRALAZINE HCL50 MG GT; +JANUVIA50 MG GT; +KEPPRA100 MG/1 M GT; +LEVEMIR FL100 UNIT/1 SUBQ; +METOPROLOL TART25 MG GT; +MIRALAX17 G2 GT; +PROSCAR5 MG GT
[2020-03-21 20:30] VITALS: BP 108/72
--- NOTE | 2020-03-21 21:21 | Diagnostic Imaging Report ---
EXAM: CT Head Without Intravenous Contrast CLINICAL HISTORY: FALL TECHNIQUE: Axial computed tomography images of the head/brain without intravenous contrast. CTDI is 53 mGy and DLP is 1001 mGy-cm. One or more of the following dose reduction techniques were used: automated exposure control, adjustment of the mA and/or kV according to patient size, use of iterative reconstruction technique. COMPARISON: None FINDINGS: Brain: Patchy low attenuation in the periventricular white matter is most consistent with chronic small vessel disease. Negative for intracranial hemorrhage. Ventricles: Marked generalized cerebral atrophy. Moderate to marked ventriculomegaly, question if degree of ventricular enlargement is greater than that for atrophy with normal pressure hydrocephalus not excluded. Bones/joints: Unremarkable. No acute fracture. Soft tissues: Unremarkable. Sinuses: Unremarkable as visualized. No acute sinusitis. Mastoid air cells: Unremarkable as visualized. No mastoid effusion. IMPRESSION: No acute intracranial abnormality. Skin ventriculomegaly out of proportion to degree of atrophy as described above.
[2020-03-21 21:34] LABS: EOSINOPHILS % (AUTO) 4.9 % (0.0-3.0); HEMATOCRIT 30.7 % (42.0-52.0); LYMPHOCYTES % (AUTO) 30.5 % (20.0-45.0); MEAN CORPUSCULAR VOLUME 92 FL (80-99); MONOCYTES % (AUTO) 11.1 % (1.0-10.0); NEUTROPHILS % (AUTO) 52.6 % (45.0-75.0); PLATELET COUNT 238 K/UL (150-450); RED BLOOD COUNT 3.36 M/UL (4.70-6.10); RED CELL DISTRIBUTION WIDTH 13.5 % (11.6-14.8); WHITE BLOOD COUNT 6.9 K/UL (4.8-10.8)
[2020-03-21 21:51] LABS: ANION GAP 8 mmol/L (5-15); BLOOD UREA NITROGEN 61 mg/dL (7-18); CALCIUM 10.3 MG/DL (8.5-10.1); CARBON DIOXIDE 29 MMOL/L (21-32); CHLORIDE 100 MMOL/L (98-107); CREATININE 1.2 MG/DL (0.55-1.30); POTASSIUM 4.7 MMOL/L (3.5-5.1); SODIUM 137 MMOL/L (136-145)
[2020-03-21 21:56] LABS: ALANINE AMINOTRANSFERASE 83 U/L (12-78); ALBUMIN 3.2 G/DL (3.4-5.0); ALBUMIN/GLOBULIN RATIO 0.6 (1.0-2.7); ALKALINE PHOSPHATASE 212 U/L (46-116); ASPARTATE AMINO TRANSFERASE 37 U/L (15-37); BILIRUBIN,TOTAL 0.3 MG/DL (0.2-1.0)
[2020-03-21 22:15] VITALS: BP 101/66
[2020-03-21] MEDS ORDERED: Morphine Sulfate 2mg/ml Inj(IV/IM USE ONLY) IVP PRN (22:45)
[2020-03-21] MEDS ORDERED: Acetaminophen 650 MG SUPP RECTAL PRN (22:45)
--- NOTE | 2020-03-21 23:16 | Emergency Room Report ---
History of Present Illness General Chief Complaint: Multiple Trauma/Fall Source: Medical Record, EMS Present Illness HPI 69-year-old male presents for head injury. Fell today at [facility] facility. No LOC. Patient is on heparin. Patient nonverbal at baseline. Unable to provide any additional history. No signs of distress. No other aggravating relieving factors. Denies any other associated symptoms Allergies: Coded Allergies: No Known Allergies (Unverified , 04/08/16) COVID-19 Screening Contact w/high risk pt: Yes Recent Travel to affected area: No Experienced COVID-19 symptoms?: No COVID-19 symptoms experienced: Shortness of Breath, Runny Nose COVID-19 Testing performed OPTICAL SALES ASSOCIATE: No Patient History Past Medical History: DM, HTN, dementia Pertinent Family History: none Social History: Denies: smoking, alcohol use, drug use Immunizations: UTD Reviewed Nursing Documentation: PMH: Agreed; PSxH: Agreed Nursing Documentation-PMH Hx Cardiac Problems: Yes Hx Hypertension: Yes Hx Diabetes: Yes Hx Cancer: No Hx Gastrointestinal Problems: No Hx Neurological Problems: Yes Hx Dementia: Yes Hx Seizures: Yes Hx Epilepsy: Yes Hx Concentration Difficulty: Yes Review of Systems All Other Systems: limited Physical Exam Vital Signs Date Time Temp Pulse Resp B/P (MAP) Pulse Ox O2 Delivery O2 Flow Rate FiO2 03/21/20 20:09 90 18 98/67 (77) 95 Room Air 03/21/20 20:30 98.1 Sp02 EP Interpretation: reviewed, normal General Appearance: no apparent distress, GCS 15, non-toxic, other - nonverbal Head: normocephalic Eyes: bilateral eye normal inspection, bilateral eye PERRL ENT: normal ENT inspection Neck: normal inspection Respiratory: chest non-tender, lungs clear, normal breath sounds, speaking full sentences Cardiovascular #1: regular rate, rhythm, no edema Gastrointestinal: normal inspection Rectal: deferred Genitourinary: no CVA tenderness Musculoskeletal: normal inspection, back normal Neurologic: other - nonverbal Psychiatric: other - nonverbal Skin: other - see nursing skin notes Lymphatic: normal inspection Medical Decision Making Diagnostic Impression: Primary Impression: Head injury Qualified Codes: S09.90XA - Unspecified injury of head, initial encounter ER Course Hospital Course 69 yo M presents with fall, head injury Differential diagnoses include: head bleed, dehydration, CVA/TIA Clinical course Patient placed on stretcher. on cardiac cath technologist. After initial history and physical I ordered labs, IVFs, CT Brain labs reviewed- no leukocytosis, hemoglobin/hematocrit ok, electrolytes okay, troponins negative, coags ok CT brain-unremarkable Patient is on heparin. Concern for delayed head bleed. Patient will require observation Case discussed with Dr. Dietz and he agreed to accept the patient to his service for further care and support I. I feel this is a highly complex case requiring extensive working including EKG/Rhythm strip, Xray/CT/US, Blood/urine lab work, repeat exams while in ED, and administration of strong opiates/narcotics for pain control, admission to hospital or close patient follow up. Diagnosis - head injury admitted to floor in serious condition Labs Test 03/21/20 21:10 White Blood Count 6.9 K/UL (4.8-10.8) Red Blood Count 3.36 M/UL (4.70-6.10) Hemoglobin 10.0 G/DL (14.2-18.0) Hematocrit 30.7 % (42.0-52.0) Mean Corpuscular Volume 92 FL (80-99) Mean Corpuscular Hemoglobin 29.8 PG (27.0-31.0) Mean Corpuscular Hemoglobin Concent 32.6 G/DL (32.0-36.0) Red Cell Distribution Width 13.5 % (11.6-14.8) Platelet Count 238 K/UL (150-450) Mean Platelet Volume 8.1 FL (6.5-10.1) Neutrophils (%) (Auto) 52.6 % (45.0-75.0) Lymphocytes (%) (Auto) 30.5 % (20.0-45.0) Monocytes (%) (Auto) 11.1 % (1.0-10.0) Eosinophils (%) (Auto) 4.9 % (0.0-3.0) Basophils (%) (Auto) 1.0 % (0.0-2.0) Prothrombin Time 11.4 SEC (9.30-11.50) Prothromb Time International Ratio 1.0 (0.9-1.1) Activated Partial Thromboplast Time 25 SEC (23-33) Sodium Level 137 MMOL/L (136-145) Potassium Level 4.7 MMOL/L (3.5-5.1) Chloride Level 100 MMOL/L (98-107) Carbon Dioxide Level 29 MMOL/L (21-32) Anion Gap 8 mmol/L (5-15) Blood Urea Nitrogen 61 mg/dL (7-18) Creatinine 1.2 MG/DL (0.55-1.30) Estimat Glomerular Filtration Rate 59.9 mL/min (>60) Glucose Level 102 MG/DL (74-106) Calcium Level 10.3 MG/DL (8.5-10.1) Total Bilirubin 0.3 MG/DL (0.2-1.0) Aspartate Amino Transf (AST/SGOT) 37 U/L (15-37) Alanine Aminotransferase (ALT/SGPT) 83 U/L (12-78) Alkaline Phosphatase 212 U/L (46-116) Total Protein 8.6 G/DL (6.4-8.2) Albumin 3.2 G/DL (3.4-5.0) Globulin 5.4 g/dL Albumin/Globulin Ratio 0.6 (1.0-2.7) CT/MRI/US Diagnostic Results CT/MRI/US Diagnostic Results : Imaging Test Ordered: CT Head Impression no acute process Last Vital Signs Date Time Temp Pulse Resp B/P (MAP) Pulse Ox O2 Delivery O2 Flow Rate FiO2 03/21/20 22:15 98.2 82 17 101/66 100 Room Air Status: improved Disposition: ADMITTED INPATIENT Condition: Serious Referrals: Tone Dietz DO (PCP) Luis Gayle MD Mar 21, 2020 23:16
[2020-03-22] VITALS: BP 97/67
[2020-03-22 04:00] VITALS: BP 103/73
[2020-03-22] MEDS: D5 1/2NS 1,000 ML IV SCH (05:17)
[2020-03-22] MEDS: HydrALAZINE 50mg tab GT SCH ×3 (05:45→21:02)
[2020-03-22] MEDS ORDERED: LORazepam 1mg tab ORAL SCH (06:00)
[2020-03-22] MEDS ORDERED: Amoxicillin 125mg/5ml susp 80ml ORAL SCH (06:00)
[2020-03-22] MEDS ORDERED: GlipiZIDE 5mg tab ORAL SCH (06:30)
[2020-03-22] MEDS ORDERED: metFORMIN 500mg tab ORAL SCH (06:30)
[2020-03-22 07:20] LABS: BASOPHILS % (AUTO) 1.1 % (0.0-2.0); EOSINOPHILS % (AUTO) 4.7 % (0.0-3.0); HEMATOCRIT 28.1 % (42.0-52.0); HEMOGLOBIN 10.2 G/DL (14.2-18.0); LYMPHOCYTES % (AUTO) 33.8 % (20.0-45.0); MEAN CORPUSCULAR VOLUME 84 FL (80-99); NEUTROPHILS % (AUTO) 49.5 % (45.0-75.0); PLATELET COUNT 210 K/UL (150-450); RED BLOOD COUNT 3.35 M/UL (4.70-6.10); RED CELL DISTRIBUTION WIDTH 11.4 % (11.6-14.8); WHITE BLOOD COUNT 6.2 K/UL (4.8-10.8)
[2020-03-22 07:22] LABS: ANION GAP 8 mmol/L (5-15); BLOOD UREA NITROGEN 52 mg/dL (7-18); CALCIUM 9.4 MG/DL (8.5-10.1); CARBON DIOXIDE 28 MMOL/L (21-32); CHLORIDE 104 MMOL/L (98-107); CREATININE 1.1 MG/DL (0.55-1.30); POTASSIUM 4.5 MMOL/L (3.5-5.1); SODIUM 140 MMOL/L (136-145)
[2020-03-22 08:00] VITALS: BP 110/67
[2020-03-22] MEDS ORDERED: Miralax 17gm pkt ORAL SCH (09:00)
[2020-03-22] MEDS ORDERED: Aspirin EC 81mg tab ORAL SCH (09:00)
[2020-03-22] MEDS ORDERED: Multivitamin w/Minerals tab ORAL SCH (09:00)
[2020-03-22] MEDS ORDERED: Docusate 100mg cap ORAL SCH (09:00)
[2020-03-22] MEDS: Tamsulosin 0.4mg cap ORAL SCH (10:09)
[2020-03-22] MEDS: Heparin 5000 units/ml inj SUBQ SCH ×2 (10:10→21:10)
[2020-03-22] MEDS ORDERED: Docusate 100mg/10ml Liq GT SCH (10:45)
[2020-03-22] MEDS ORDERED: Acetaminophen 650mg/20.3ml GT PRN ×3 (11:45)
[2020-03-22 12:00] VITALS: BP 121/71
[2020-03-22] MEDS ORDERED: LORazepam 1mg tab GT SCH (12:00)
[2020-03-22] MEDS ORDERED: Nitroglycerin Subl 0.4mg tab SL PRN ×2 (13:30→13:45)
[2020-03-22] MEDS: Miralax 17gm pkt GT SCH (14:00)
[2020-03-22] MEDS: levETIRAcetam 500mg/5ml Liquid GT SCH ×2 (14:00→21:01)
[2020-03-22] MEDS ORDERED: Miralax 17gm pkt GT SCH (14:00)
[2020-03-22] MEDS ORDERED: LORazepam 1mg tab GT PRN (14:00)
[2020-03-22] MEDS: sitaGLIPtin 50mg tab GT SCH (14:54)
[2020-03-22] MEDS: Lisinopril 10mg tab GT SCH (14:54)
[2020-03-22] MEDS: Metoprolol Tartrate 12.5mg TAB GT SCH ×2 (14:54→21:00)
--- NOTE | 2020-03-22 16:31 | Consultation ---
History of Present Illness General Chief Complaint: Multiple Trauma/Fall Present Illness Allergies: Coded Allergies: No Known Allergies (Unverified , 04/08/16) Medication History Scheduled Amoxicillin* (Amoxicillin*), 250 MG ORAL EVERY 8 HOURS, (Reported) Aspirin* (Aspir 81*), 81 MG ORAL DAILY, (Reported) Docusate Sodium* (Colace*), 100 MG GT TWICE A DAY, (Reported) Finasteride* (Proscar*), 5 MG GT DAILY, (Reported) Glipizide* (Glucotrol*), 2.5 MG ORAL ACBREAKFAST, (Reported) Heparin Sod (Porcine) (Heparin Sodium*), 5,000 UNITS SUBQ EVERY 12 HOURS, ( Reported) Hydralazine Hcl* (Hydralazine Hcl*), 50 MG GT EVERY 8 HOURS, (Reported) Insulin Detemir (Levemir Flexpen), 8 SUBQ DAILY, (Reported) Levetiracetam (Keppra), 500 MG ORAL Q12HR, (Reported) Levetiracetam (Keppra), 500 MG GT Q12HR, (Reported) Linagliptin (Tradjenta), 5 MG PO DAILY, (Reported) Lisinopril* (Zestril*), 10 MG GT DAILY, (Reported) Lorazepam* (Ativan*), 1 MG ORAL Q6HR, (Reported) Memantine Hcl (Namenda Xr), 10 MG GT BEDTIME, (Reported) Metformin Hcl* (Glucophage*), 1,000 MG ORAL TWICE A DAY, (Reported) Metoprolol Tartrate* (Metoprolol Tartrate*), 12.5 MG GT EVERY 12 HOURS, ( Reported) Multivitamin With Minerals (Multivitamins With Minerals*), 1 TAB ORAL DAILY, ( Reported) Pantoprazole* (Protonix*), 40 MG ORAL BEFORE BREAKFAST, (Reported) Polyethylene Glycol 3350* (Miralax*), 17 GM ORAL DAILY, (Reported) Polyethylene Glycol 3350* (Miralax*), 17 GM GT DAILY, (Reported) Sitagliptin (Januvia), 50 MG GT DAILY, (Reported) Tamsulosin HCl (Flomax), 0.4 MG GT DAILY, (Reported) Terazosin Hcl* (Hytrin*), 1 MG GT BEDTIME, (Reported) Scheduled PRN Acetaminophen (Tylenol), 650 MG GT Q4HR PRN for Fever/Headache/Mild Pain, ( Reported) Nitroglycerin (Nitrostat), 0.4 MG SL Q5M X3 DOSES PRN for AD, (Reported) Ondansetron Hcl* (Zofran*), 4 MG GT Q6H PRN for Nausea & Vomiting, (Reported) Temazepam* (Restoril*), 15 MG ORAL BEDTIME PRN for Insomnia, (Reported) Patient History Healthcare decision maker Resuscitation status Advanced Directive on File Physical Exam Last 24 Hour Vital Signs Date Time Temp Pulse Resp B/P (MAP) Pulse Ox O2 Delivery O2 Flow Rate FiO2 03/22/20 14:54 69 121/71 03/22/20 14:54 121/71 03/22/20 14:52 121/71 03/22/20 12:00 98.1 17 121/71 (88) 98 03/22/20 09:00 Room Air 03/22/20 08:00 97.7 69 18 110/67 (81) 99 03/22/20 05:45 103/73 03/22/20 04:00 97.9 76 18 103/73 (83) 95 03/22/20 01:20 Room Air 03/22/20 00:00 98.0 72 19 97/67 (77) 95 03/21/20 23:55 98.3 82 17 106/59 100 Room Air 03/21/20 22:15 98.2 82 17 101/66 100 Room Air 03/21/20 20:30 90 18 Room Air 03/21/20 20:30 98.1 77 18 108/72 99 Room Air 03/21/20 20:09 90 18 98/67 (77) 95 Room Air Intake and Output 03/21/20 03/22/20 19:00 07:00 Output Total 200 ml Balance -200 ml Output Urine Total 200 ml # Bowel Movements 2 Laboratory Tests Test 03/21/20 21:10 03/22/20 06:45 White Blood Count 6.9 K/UL (4.8-10.8) 6.2 K/UL (4.8-10.8) Red Blood Count 3.36 M/UL (4.70-6.10) L 3.35 M/UL (4.70-6.10) L Hemoglobin 10.0 G/DL (14.2-18.0) L 10.2 G/DL (14.2-18.0) L Hematocrit 30.7 % (42.0-52.0) L 28.1 % (42.0-52.0) L Mean Corpuscular Volume 92 FL (80-99) 84 FL (80-99) # Mean Corpuscular Hemoglobin 29.8 PG (27.0-31.0) 30.4 PG (27.0-31.0) Mean Corpuscular Hemoglobin Concent 32.6 G/DL (32.0-36.0) 36.2 G/DL (32.0-36.0) H Red Cell Distribution Width 13.5 % (11.6-14.8) 11.4 % (11.6-14.8) L Platelet Count 238 K/UL (150-450) 210 K/UL (150-450) Mean Platelet Volume 8.1 FL (6.5-10.1) 7.0 FL (6.5-10.1) Neutrophils (%) (Auto) 52.6 % (45.0-75.0) 49.5 % (45.0-75.0) Lymphocytes (%) (Auto) 30.5 % (20.0-45.0) 33.8 % (20.0-45.0) Monocytes (%) (Auto) 11.1 % (1.0-10.0) H 11.0 % (1.0-10.0) H Eosinophils (%) (Auto) 4.9 % (0.0-3.0) H 4.7 % (0.0-3.0) H Basophils (%) (Auto) 1.0 % (0.0-2.0) 1.1 % (0.0-2.0) Prothrombin Time 11.4 SEC (9.30-11.50) Prothromb Time International Ratio 1.0 (0.9-1.1) Activated Partial Thromboplast Time 25 SEC (23-33) Sodium Level 137 MMOL/L (136-145) 140 MMOL/L (136-145) Potassium Level 4.7 MMOL/L (3.5-5.1) 4.5 MMOL/L (3.5-5.1) Chloride Level 100 MMOL/L (98-107) 104 MMOL/L (98-107) Carbon Dioxide Level 29 MMOL/L (21-32) 28 MMOL/L (21-32) Anion Gap 8 mmol/L (5-15) 8 mmol/L (5-15) Blood Urea Nitrogen 61 mg/dL (7-18) H 52 mg/dL (7-18) H Creatinine 1.2 MG/DL (0.55-1.30) 1.1 MG/DL (0.55-1.30) Estimat Glomerular Filtration Rate 59.9 mL/min (>60) > 60 mL/min (>60) Glucose Level 102 MG/DL (74-106) 128 MG/DL (74-106) H Calcium Level 10.3 MG/DL (8.5-10.1) H 9.4 MG/DL (8.5-10.1) Total Bilirubin 0.3 MG/DL (0.2-1.0) Aspartate Amino Transf (AST/SGOT) 37 U/L (15-37) Alanine Aminotransferase (ALT/SGPT) 83 U/L (12-78) H Alkaline Phosphatase 212 U/L (46-116) H Total Protein 8.6 G/DL (6.4-8.2) H Albumin 3.2 G/DL (3.4-5.0) L Globulin 5.4 g/dL Albumin/Globulin Ratio 0.6 (1.0-2.7) L Microbiology Date/Time Source Procedure Growth Status 03/21/20 23:30 Rectum Received Height (Feet): 5 Height (Inches): 7.00 Weight (Pounds): 125 Medications Current Medications Medications (Trade) Dose Ordered Sig/Angel Route PRN Reason Start Time Stop Time Status Last Admin Dose Admin Acetaminophen (Tylenol) 650 mg Q4H PRN GT HEADACHE 03/22/20 11:45 04/21/20 11:44 Acetaminophen (Tylenol) 650 mg Q4H PRN GT Mild Pain (Pain Scale 1-3) 03/22/20 11:45 04/21/20 11:44 Acetaminophen (Tylenol) 650 mg Q4H PRN GT Temp >100.5 03/22/20 11:45 04/21/20 11:44 Aspirin (ASA) 81 mg DAILY GT 03/23/20 09:00 05/07/20 08:59 Dextrose/Sodium Chloride 1,000 ml @ 50 mls/hr Q20H IV 03/22/20 06:00 04/21/20 05:59 03/22/20 05:17 Docusate Sodium (Colace) 100 mg TWICE A DAY GT 03/22/20 18:00 04/21/20 17:59 Glipizide (Glucotrol) 2.5 mg ACBREAKFAST GT 03/23/20 06:30 04/21/20 06:29 Heparin Sodium (Porcine) (Heparin 5000 units/ml) 5,000 units EVERY 12 HOURS SUBQ 03/22/20 09:00 05/06/20 08:59 03/22/20 10:10 Hydralazine HCl (Apresoline) 50 mg EVERY 8 HOURS GT 03/22/20 06:00 06/20/20 05:59 03/22/20 14:52 Levetiracetam (Keppra) 500 mg Q12HR GT 03/22/20 14:00 04/21/20 13:59 Lisinopril (ZestriL) 10 mg DAILY GT 03/22/20 14:00 04/21/20 13:59 03/22/20 14:54 Lorazepam (Ativan) 1 mg Q6H PRN GT For Anxiety 03/22/20 14:00 03/29/20 13:59 Memantine (Namenda) 5 mg BID GT 03/22/20 18:00 04/21/20 17:59 Metformin HCl (Glucophage) 1,000 mg BID@0630,1630 GT 03/22/20 16:30 04/21/20 06:29 Metoprolol Tartrate (Lopressor) 12.5 mg Q12HR GT 03/22/20 14:00 06/20/20 13:59 03/22/20 14:54 Multivitamins (Multivitamins W/ Minerals 15ml Liquid) 15 ml DAILY GT 03/23/20 09:00 04/22/20 08:59 Nitroglycerin (Ntg) 0.4 mg Q5MIN X 3 DOSES PRN SL Prn Chest Pain 03/22/20 13:45 04/21/20 13:44 Pantoprazole (Protonix) 40 mg EVERY 12 HOURS IVP 03/22/20 21:00 04/21/20 20:59 Polyethylene Glycol (Miralax) 17 gm DAILY GT 03/22/20 14:00 04/21/20 13:59 Sitagliptin Phosphate (Januvia) 50 mg DAILY GT 03/22/20 14:00 04/21/20 13:59 03/22/20 14:54 Tamsulosin HCl (Flomax) 0.4 mg DAILY ORAL 03/22/20 09:00 04/21/20 08:59 03/22/20 10:09 Temazepam (Restoril) 15 mg BEDTIME PRN GT Insomnia 03/22/20 21:00 03/29/20 20:59 Terazosin HCl (Hytrin) 1 mg BEDTIME GT 03/22/20 21:00 04/21/20 20:59 Assessment/Plan Assessment/Plan: Hematology Consult REQ MD: Brian Dietz RFC: Dvt ppx and heparin use with fall DOS 03/22/20 ID 69-year-old male presents for head injury. Fell today at senior living facility. No LOC. Patient is on heparin. Patient nonverbal at baseline. Unable to provide any additional history. No signs of distress. No other aggravating relieving factors. Denies any other associated symptoms. 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: No Patient History Past Medical History: DM, HTN, dementia Pertinent Family History: none Social History: Denies: smoking, alcohol use, drug use Immunizations: UTD Reviewed Nursing Documentation: PMH: Agreed; PSxH: Agreed Nursing Documentation-PMH Hx Cardiac Problems: Yes Hx Hypertension: Yes Hx Diabetes: Yes Hx Cancer: No Hx Gastrointestinal Problems: No Hx Neurological Problems: Yes Hx Dementia: Yes Hx Seizures: Yes Hx Epilepsy: Yes Hx Concentration Difficulty: Yes Review of Systems All Other Systems: limited Physical Exam: Vitals: reviewed General: NAD HEENT: nc, at Neck: supple Chest: clear breath sounds bilaterally Cardiovascular: RRR, no s3, s4 Abdomen: soft, nontender, nd Extremities: no cce, normal range of motion Neuro: ++ groans, is non-verbal Labs: noted Imaging: reviewed Assessment and Recs # s/p fall with minimal tramia, patient essentially non-verbal, difficult to get any history from him --> Given head injury monitor for bleed --> ct brain is negative --> heparin sq given in low doses as per pmd # Hypercalcemia is likely due to dehydration --> goal of euvolemia --> ivfs have been started # Elevated protein, hyperproteinemia --> due to dehydration, less likely covid19 # Anemia of chronic disease due to underlying chronic medical issues, multifactorial v Gi bleed --> Anemia workup has been ordered, rule out gi bleed --> No evidence of hemolysis is noted, peripheral smear has been reviewed. --> Hgb goal >7. Transfuse prn. --> Epogen or iron at this time is not particularly indicated --> Medications have been reviewed --> low threshold for gi evaluation in case has occult + --> bone marrow biopsy is not indicated given the other more likely causes # Dvt ppx heparin sq Appreciate consultation and Fermin Gonzales RN, MD Mar 22, 2020 16:31
[2020-03-22 16:46] VITALS: BP 129/76
[2020-03-22] MEDS: Memantine 10mg tab GT SCH (17:21)
[2020-03-22] MEDS: Docusate 100mg/10ml Liq GT SCH (17:21)
[2020-03-22] MEDS: metFORMIN 500mg tab GT SCH (17:21)
--- NOTE | 2020-03-22 18:00 | History and Physical Report ---
DATE OF ADMISSION: 03/21/2020 APPROXIMATE TIME: 2 p.m. CONSULTANTS: 1. Dr. Garcia. 2. . 3. Letty Arrieta MD. 4. John Wakefield MD. CHIEF COMPLAINT: Fall, head injury, leaky tube. BRIEF HISTORY: This is a 69-year-old male from [facility] presented with history of fall with head injury. The patient is on heparin; therefore the patient was admitted for observation. Currently calm in bed, slightly confused, not talking much. REVIEW OF SYSTEMS: Unavailable. PAST MEDICAL HISTORY: Anemia, COPD, diabetes, hypertension, malnutrition. PAST SURGICAL HISTORY: Unknown. MEDICATIONS: Include aspirin, multivitamin, glipizide, temazepam, pantoprazole, docusate sodium, metformin, lisinopril, metoprolol, levetiracetam, lorazepam. ALLERGIES: Denies. SOCIAL HISTORY: Unobtainable secondary to the patient's condition. PHYSICAL EXAMINATION: GENERAL: Sleeping, confused in bed, not talking much. VITAL SIGNS: Temperature is 98 degrees, pulse 69, respirations 17, blood pressure 120/71. CARDIOVASCULAR: No murmur. LUNGS: Distant and clear. ABDOMEN: Bowel sound positive. Nontender. Nondistended. EXTREMITIES: No cyanosis, clubbing, or edema. NEUROLOGIC: The patient moves all extremities, slightly weak. LABORATORY AND DIAGNOSTIC DATA: Labs at this time show hemoglobin and hematocrit 10/28 otherwise CBC is normal. BMP show BUN 52, glucose 128, otherwise normal. Albumin 3.2. INR is 1.0. ASSESSMENT: Head injury, status post fall, she is on heparin, leaking urinary tube, anemia, COPD, seizure, dementia, hypertension, diabetes, malnutrition. PLAN: 1. Resume home medications. 2. Neuro check q. 2h. 3. Blood pressure, blood sugar, seizure, pain control. 4. Dietary followup. 5. PT and dietary evaluation. 6. CBC and BMP in the morning. 7. Urology evaluation. Tone Dietz D.O. DR: Lina JOB#: [id number] CC:
[2020-03-22 18:39] LABS: INR 1.1 (0.9-1.1)
[2020-03-22 19:02] LABS: FERRITIN 266 NG/ML (8-388); LACTATE DEHYDROGENASE 129 U/L (81-234)
[2020-03-22 19:26] LABS: % IRON SATURATION 31 % (15-50); IRON 83 ug/dL (50-175); TOTAL IRON BINDING CAPACITY 272 ug/dL (250-450)
[2020-03-22 20:00] VITALS: BP 96/53
[2020-03-22] MEDS ORDERED: Terazosin 1mg cap GT SCH (21:00)
[2020-03-22] MEDS: Pantoprazole Inj IVP SCH (21:01)
[2020-03-23] VITALS: BP 101/54
--- NOTE | 2020-03-23 00:30 | Consultation ---
DATE OF CONSULTATION: 03/22/2020 HISTORY OF PRESENT ILLNESS: This is a 69-year-old male patient. This patient was admitted to the hospital with diagnoses of COPD, encephalopathy, hypertension, BPH, anemia, cellulitis, and diabetes. However, this patient has significant altered mental status and confusion when he came in, and this patient came into hospital because he had a head injury after he fell at his assisted facility. He is very confused and disorganized. He is a very poor historian on interview. My group actually follows him at his skilled nursing, so I have seen him before, but this patient has significant decline in his cognition below his baseline, worsened by the stress of his medical illness. Information can be obtained through chart review. He appears to be even more confused and disorganized. MEDICAL HISTORY: He has a history of COPD, hypertension, BPH, anemia, cellulitis, diabetes, decubitus skin ulcers, , status post COVID-19 infection. ALLERGIES: No known drug allergies. PSYCHOTROPIC MEDICATIONS ON ADMISSION: This patient is on a medical regimen of Namenda XR 28 mg cap, he also takes Ativan 1 every 6 hours p.r.n. anxiety and agitation. PAIN ASSESSMENT: 12/19 pain. DEVELOPMENTAL PROBLEMS: Denies. SUBSTANCE ABUSE HISTORY: No known history of any drug or alcohol use. SOCIAL HISTORY: The patient is currently living in [facility]. Financially he is supported by [facility] and Medicare. STRENGTHS: He is motivated to get better and he is relatively healthy. WEAKNESSES: He is impulsive. Minimal support system. MENTAL STATUS EXAMINATION: This is a 69-year-old male patient. His appearance is disheveled. Attitude, irritable and agitated. Affect is flat. Intellect poor because he does not know current events and does not know last four presidents. Mood, depressed and anxious. Motor activity, psychomotor agitation. Attention span is poor because he cannot do serial sevens and spell world backwards. Orientation x2, he is oriented to person and place, but not time and situation. Speech is low volume, slurred, nonsensical. Thought process, disorganized and illogical. Thought content, seemed to have paranoid delusions. Perception is poor. He has perceptual disturbances and paranoid delusions. Abstract reasoning is poor because he does not understand proverbs, only has concrete thinking. Insight is poor because he does not recognize having psych disorder. Judgment is poor because he cannot make his own medical decision. He has no signs of any suicidal or homicidal thoughts. Short-term memory, 0/3 recall, so poor short-term. Long-term memory is poor because he cannot recall long-term events in his life such as high school that he went to. DIAGNOSES: 1. Major depressive disorder, severe, recurrent with psychotic features, rule out dementia with psychosis. 2. There is no secondary. 3. Medical diagnoses include COPD, encephalopathy, head injury, altered mental status, hypertension, BPH, rule out COVID-19. 4. Psychosocial stressors, financial. 5. Functional impairment is mild. PLAN: Plan for this patient is I am going to restart this patient on his medication regimen of Namenda at a dose of 5 mg per G-tube twice a day to prevent any further decline in his cognition and continue Ativan 1 every 6 hours p.r.n. anxiety and agitation. Twenty minutes of insight-oriented psychotherapy was provided to help this patient have a better understanding of his medical and psychiatric condition to reduce anxiety and depression and to help him have better impulse control on the unit. Chart has been reviewed and discussed with staff. The patient seen and assessed at bedside. I would like to thank Dr. Tone Dietz for this interesting consultation. Letty Mcgowan M.D. DR: SERGIO JOB#: [id number] CC:
[2020-03-23] MEDS: D5 1/2NS 1,000 ML IV SCH (00:34)
[2020-03-23 04:00] VITALS: BP 113/57
[2020-03-23] MEDS: HydrALAZINE 50mg tab GT SCH ×2 (06:00→14:51)
[2020-03-23] MEDS: metFORMIN 500mg tab GT SCH ×2 (06:11→16:15)
[2020-03-23] MEDS ORDERED: GlipiZIDE 5mg tab GT SCH (06:30)
[2020-03-23 07:24] LABS: ANION GAP 10 mmol/L (5-15); BASOPHILS % (AUTO) 0.7 % (0.0-2.0); BLOOD UREA NITROGEN 37 mg/dL (7-18); CALCIUM 9.7 MG/DL (8.5-10.1); CARBON DIOXIDE 28 MMOL/L (21-32); CHLORIDE 104 MMOL/L (98-107); EOSINOPHILS % (AUTO) 4.3 % (0.0-3.0); HEMATOCRIT 28.6 % (42.0-52.0); HEMOGLOBIN 9.8 G/DL (14.2-18.0); LYMPHOCYTES % (AUTO) 22.7 % (20.0-45.0); MEAN CORPUSCULAR VOLUME 90 FL (80-99); MONOCYTES % (AUTO) 8.2 % (1.0-10.0); NEUTROPHILS % (AUTO) 64.1 % (45.0-75.0); PLATELET COUNT 199 K/UL (150-450); POTASSIUM 5.1 MMOL/L (3.5-5.1); RED BLOOD COUNT 3.17 M/UL (4.70-6.10); RED CELL DISTRIBUTION WIDTH 11.7 % (11.6-14.8); SODIUM 141 MMOL/L (136-145); WHITE BLOOD COUNT 9.5 K/UL (4.8-10.8)
--- NOTE | 2020-03-23 07:51 | Hematology/Onc Progress Note ---
Assessment/Plan Assessment/Plan Assessment and Recs # s/p fall with minimal trauma, patient essentially non-verbal, difficult to get any history from him --> Given head injury monitor for bleed --> ct brain is negative --> heparin sq given in low doses as per pmd # Hypercalcemia is likely due to dehydration --> goal of euvolemia --> ivfs have been started # Elevated protein, hyperproteinemia --> due to dehydration, less likely covid19 # Anemia of chronic disease due to underlying chronic medical issues, multifactorial v Gi bleed --> Anemia workup has been reviewed, ferritin 266 --> No evidence of hemolysis is noted, peripheral smear has been reviewed. --> Hgb goal >7. Transfuse prn. --> hgb trend: 9.8 --> Epogen or iron at this time is not particularly indicated --> Medications have been reviewed --> low threshold for gi evaluation in case has occult + --> bone marrow biopsy is not indicated given the other more likely causes # Dvt ppx heparin sq Appreciate consultation and bob RN Subjective Allergies: Coded Allergies: No Known Allergies (Unverified , 04/08/16) Subjective 03/23 nonverbal, ferritin 266, room air, gt Objective Objective Current Medications Medications (Trade) Dose Ordered Sig/Angel Route PRN Reason Start Time Stop Time Status Last Admin Dose Admin Acetaminophen (Tylenol) 650 mg Q4H PRN GT HEADACHE 03/22/20 11:45 04/21/20 11:44 Acetaminophen (Tylenol) 650 mg Q4H PRN GT Mild Pain (Pain Scale 1-3) 03/22/20 11:45 04/21/20 11:44 Acetaminophen (Tylenol) 650 mg Q4H PRN GT Temp >100.5 03/22/20 11:45 04/21/20 11:44 Aspirin (ASA) 81 mg DAILY GT 03/23/20 09:00 05/07/20 08:59 Dextrose/Sodium Chloride 1,000 ml @ 50 mls/hr Q20H IV 03/22/20 06:00 04/21/20 05:59 03/23/20 00:34 Docusate Sodium (Colace) 100 mg TWICE A DAY GT 03/22/20 18:00 04/21/20 17:59 Glipizide (Glucotrol) 2.5 mg ACBREAKFAST GT 03/23/20 06:30 04/21/20 06:29 03/23/20 06:11 Heparin Sodium (Porcine) (Heparin 5000 units/ml) 5,000 units EVERY 12 HOURS SUBQ 03/22/20 09:00 05/06/20 08:59 03/22/20 21:10 Hydralazine HCl (Apresoline) 50 mg EVERY 8 HOURS GT 03/22/20 06:00 06/20/20 05:59 03/22/20 14:52 Levetiracetam (Keppra) 500 mg Q12HR GT 03/22/20 14:00 04/21/20 13:59 03/22/20 21:01 Lisinopril (ZestriL) 10 mg DAILY GT 03/22/20 14:00 04/21/20 13:59 03/22/20 14:54 Lorazepam (Ativan) 1 mg Q6H PRN GT For Anxiety 03/22/20 14:00 03/29/20 13:59 Memantine (Namenda) 5 mg BID GT 03/22/20 18:00 04/21/20 17:59 03/22/20 17:21 Metformin HCl (Glucophage) 1,000 mg BID@0630,1630 GT 03/22/20 16:30 04/21/20 06:29 03/23/20 06:11 Metoprolol Tartrate (Lopressor) 12.5 mg Q12HR GT 03/22/20 14:00 06/20/20 13:59 03/22/20 14:54 Multivitamins (Multivitamins W/ Minerals 15ml Liquid) 15 ml DAILY GT 03/23/20 09:00 04/22/20 08:59 Nitroglycerin (Ntg) 0.4 mg Q5MIN X 3 DOSES PRN SL Prn Chest Pain 03/22/20 13:45 04/21/20 13:44 Pantoprazole (Protonix) 40 mg EVERY 12 HOURS IVP 03/22/20 21:00 04/21/20 20:59 03/22/20 21:01 Polyethylene Glycol (Miralax) 17 gm DAILY GT 03/22/20 14:00 04/21/20 13:59 Sitagliptin Phosphate (Januvia) 50 mg DAILY GT 03/22/20 14:00 04/21/20 13:59 03/22/20 14:54 Tamsulosin HCl (Flomax) 0.4 mg DAILY ORAL 03/22/20 09:00 04/21/20 08:59 03/22/20 10:09 Temazepam (Restoril) 15 mg BEDTIME PRN GT Insomnia 03/22/20 21:00 03/29/20 20:59 Terazosin HCl (Hytrin) 1 mg BEDTIME GT 03/22/20 21:00 04/21/20 20:59 Last 24 Hour Vital Signs Date Time Temp Pulse Resp B/P (MAP) Pulse Ox O2 Delivery O2 Flow Rate FiO2 03/23/20 06:00 113/57 03/23/20 04:00 97.0 71 20 113/57 (75) 100 03/23/20 00:00 97.5 78 22 101/54 (70) 98 03/22/20 21:02 96/53 03/22/20 21:00 Room Air 03/22/20 21:00 71 96/53 03/22/20 20:00 97.5 71 20 96/53 (67) 97 03/22/20 16:46 98.4 18 129/76 (93) 98 03/22/20 14:54 69 121/71 03/22/20 14:54 121/71 03/22/20 14:52 121/71 03/22/20 12:00 98.1 17 121/71 (88) 98 03/22/20 09:00 Room Air 03/22/20 08:00 97.7 69 18 110/67 (81) 99 03/22/20 05:45 103/73 03/22/20 04:00 97.9 76 18 103/73 (83) 95 03/22/20 01:20 Room Air 03/22/20 00:00 98.0 72 19 97/67 (77) 95 03/21/20 23:55 98.3 82 17 106/59 100 Room Air 03/21/20 22:15 98.2 82 17 101/66 100 Room Air 03/21/20 20:30 90 18 Room Air 03/21/20 20:30 98.1 77 18 108/72 99 Room Air 03/21/20 20:09 90 18 98/67 (77) 95 Room Air Intake and Output 03/22/20 03/23/20 18:59 06:59 Intake Total 1860 ml 720 ml Balance 1860 ml 720 ml Intake Free Water 180 ml 120 ml Tube Feeding 480 ml 600 ml Other 1200 ml # Bowel Movements 2 Labs Test 03/21/20 21:10 03/22/20 06:45 03/22/20 17:40 03/23/20 05:40 White Blood Count 6.9 K/UL (4.8-10.8) 6.2 K/UL (4.8-10.8) 9.5 K/UL (4.8-10.8) Red Blood Count 3.36 M/UL (4.70-6.10) 3.35 M/UL (4.70-6.10) 3.17 M/UL (4.70-6.10) Hemoglobin 10.0 G/DL (14.2-18.0) 10.2 G/DL (14.2-18.0) 9.8 G/DL (14.2-18.0) Hematocrit 30.7 % (42.0-52.0) 28.1 % (42.0-52.0) 28.6 % (42.0-52.0) Mean Corpuscular Volume 92 FL (80-99) 84 FL (80-99) 90 FL (80-99) Mean Corpuscular Hemoglobin 29.8 PG (27.0-31.0) 30.4 PG (27.0-31.0) 30.9 PG (27.0-31.0) Mean Corpuscular Hemoglobin Concent 32.6 G/DL (32.0-36.0) 36.2 G/DL (32.0-36.0) 34.1 G/DL (32.0-36.0) Red Cell Distribution Width 13.5 % (11.6-14.8) 11.4 % (11.6-14.8) 11.7 % (11.6-14.8) Platelet Count 238 K/UL (150-450) 210 K/UL (150-450) 199 K/UL (150-450) Mean Platelet Volume 8.1 FL (6.5-10.1) 7.0 FL (6.5-10.1) 7.8 FL (6.5-10.1) Neutrophils (%) (Auto) 52.6 % (45.0-75.0) 49.5 % (45.0-75.0) 64.1 % (45.0-75.0) Lymphocytes (%) (Auto) 30.5 % (20.0-45.0) 33.8 % (20.0-45.0) 22.7 % (20.0-45.0) Monocytes (%) (Auto) 11.1 % (1.0-10.0) 11.0 % (1.0-10.0) 8.2 % (1.0-10.0) Eosinophils (%) (Auto) 4.9 % (0.0-3.0) 4.7 % (0.0-3.0) 4.3 % (0.0-3.0) Basophils (%) (Auto) 1.0 % (0.0-2.0) 1.1 % (0.0-2.0) 0.7 % (0.0-2.0) Prothrombin Time 11.4 SEC (9.30-11.50) 11.6 SEC (9.30-11.50) Prothromb Time International Ratio 1.0 (0.9-1.1) 1.1 (0.9-1.1) Activated Partial Thromboplast Time 25 SEC (23-33) Sodium Level 137 MMOL/L (136-145) 140 MMOL/L (136-145) 141 MMOL/L (136-145) Potassium Level 4.7 MMOL/L (3.5-5.1) 4.5 MMOL/L (3.5-5.1) 5.1 MMOL/L (3.5-5.1) Chloride Level 100 MMOL/L (98-107) 104 MMOL/L (98-107) 104 MMOL/L (98-107) Carbon Dioxide Level 29 MMOL/L (21-32) 28 MMOL/L (21-32) 28 MMOL/L (21-32) Anion Gap 8 mmol/L (5-15) 8 mmol/L (5-15) 10 mmol/L (5-15) Blood Urea Nitrogen 61 mg/dL (7-18) 52 mg/dL (7-18) 37 mg/dL (7-18) Creatinine 1.2 MG/DL (0.55-1.30) 1.1 MG/DL (0.55-1.30) 1.0 MG/DL (0.55-1.30) Estimat Glomerular Filtration Rate 59.9 mL/min (>60) > 60 mL/min (>60) > 60 mL/min (>60) Glucose Level 102 MG/DL (74-106) 128 MG/DL (74-106) 137 MG/DL (74-106) Calcium Level 10.3 MG/DL (8.5-10.1) 9.4 MG/DL (8.5-10.1) 9.7 MG/DL (8.5-10.1) Total Bilirubin 0.3 MG/DL (0.2-1.0) Aspartate Amino Transf (AST/SGOT) 37 U/L (15-37) Alanine Aminotransferase (ALT/SGPT) 83 U/L (12-78) Alkaline Phosphatase 212 U/L (46-116) Total Protein 8.6 G/DL (6.4-8.2) Albumin 3.2 G/DL (3.4-5.0) Globulin 5.4 g/dL Albumin/Globulin Ratio 0.6 (1.0-2.7) Reticulocyte Count 1.3 % (0.5-2.0) Uric Acid 5.9 MG/DL (2.6-7.2) Iron Level 83 ug/dL (50-175) Total Iron Binding Capacity 272 ug/dL (250-450) Percent Iron Saturation 31 % (15-50) Unsaturated Iron Binding 189 ug/dL (112-346) Ferritin 266 NG/ML (8-388) Lactate Dehydrogenase 129 U/L (81-234) Vitamin B12 Level 1329 PG/ML (193-986) Folate 70.6 NG/ML (8.6-58.9) Thyroid Stimulating Hormone (TSH) 1.092 uiU/mL (0.358-3.740) Height (Feet): 5 Height (Inches): 7.00 Weight (Pounds): 125 Objective Physical Exam: Vitals: reviewed General: NAD HEENT: nc, at Neck: supple Chest: clear breath sounds bilaterally Cardiovascular: RRR, no s3, s4 Abdomen: soft, nontender, nd, gt+, suprapub cath+ Extremities: no cce, normal range of motion Neuro: ++ groans, is non-verbal Fermin Garcia MD Mar 23, 2020 07:51
[2020-03-23 08:00] VITALS: BP 125/70
[2020-03-23] MEDS: Miralax 17gm pkt GT SCH (09:00)
[2020-03-23] MEDS ORDERED: Multivitamins W/Minerals 15 ML UDC GT SCH (09:00)
[2020-03-23] MEDS ORDERED: Aspirin Baby 81mg GT SCH (09:00)
--- NOTE | 2020-03-23 09:34 | General Progress Note ---
Assessment/Plan Problem List: (1) COPD (chronic obstructive pulmonary disease) ICD Codes: J44.9 - Chronic obstructive pulmonary disease, unspecified SNOMED: 83700693 (2) Anemia ICD Codes: D64.9 - Anemia, unspecified SNOMED: 281801333 (3) Diabetes ICD Codes: E11.9 - Type 2 diabetes mellitus without complications SNOMED: 50633923 (4) Encephalopathy ICD Codes: G93.40 - Encephalopathy, unspecified SNOMED: 95447110, 827693298 (5) HTN (hypertension) ICD Codes: I10 - Essential (primary) hypertension SNOMED: 73018204 (6) Malnutrition ICD Codes: E46 - Unspecified protein-calorie malnutrition SNOMED: 25277451 (7) Head injury ICD Codes: S09.90XA - Unspecified injury of head, initial encounter SNOMED: 30965314 Qualifiers: Qualified Codes: S09.90XA - Unspecified injury of head, initial encounter Status: unchanged Assessment/Plan: uro neuro f/u cbc bmp am dc plan Subjective Constitutional: Reports: weakness Allergies: Coded Allergies: No Known Allergies (Unverified , 04/08/16) All Systems: reviewed and negative except above Subjective sleepy calm Objective Last 24 Hour Vital Signs Date Time Temp Pulse Resp B/P (MAP) Pulse Ox O2 Delivery O2 Flow Rate FiO2 03/23/20 08:00 97.0 79 18 125/70 (88) 98 03/23/20 06:00 113/57 03/23/20 04:00 97.0 71 20 113/57 (75) 100 03/23/20 00:00 97.5 78 22 101/54 (70) 98 03/22/20 21:02 96/53 03/22/20 21:00 Room Air 03/22/20 21:00 71 96/53 03/22/20 20:00 97.5 71 20 96/53 (67) 97 03/22/20 16:46 98.4 18 129/76 (93) 98 03/22/20 14:54 69 121/71 03/22/20 14:54 121/71 03/22/20 14:52 121/71 03/22/20 12:00 98.1 17 121/71 (88) 98 Intake and Output 03/22/20 03/23/20 19:00 07:00 Intake Total 1920 ml 660 ml Balance 1920 ml 660 ml Intake Free Water 180 ml 120 ml Tube Feeding 540 ml 540 ml Other 1200 ml # Bowel Movements 2 Laboratory Tests 03/22/20 17:40: Reticulocyte Count 1.3, Prothrombin Time 11.6H, Prothromb Time International Ratio 1.1, Uric Acid 5.9, Iron Level 83, Total Iron Binding Capacity 272, Percent Iron Saturation 31, Unsaturated Iron Binding 189, Ferritin 266, Lactate Dehydrogenase 129, Vitamin B12 Level 1329H, Folate 70.6H, Thyroid Stimulating Hormone (TSH) 1.092 03/23/20 05:40: White Blood Count 9.5#, Red Blood Count 3.17L, Hemoglobin 9.8L, Hematocrit 28.6L , Mean Corpuscular Volume 90, Mean Corpuscular Hemoglobin 30.9, Mean Corpuscular Hemoglobin Concent 34.1, Red Cell Distribution Width 11.7, Platelet Count 199, Mean Platelet Volume 7.8, Neutrophils (%) (Auto) 64.1, Lymphocytes (% ) (Auto) 22.7, Monocytes (%) (Auto) 8.2, Eosinophils (%) (Auto) 4.3H, Basophils (%) (Auto) 0.7, Sodium Level 141, Potassium Level 5.1, Chloride Level 104, Carbon Dioxide Level 28, Anion Gap 10, Blood Urea Nitrogen 37H, Creatinine 1.0, Estimat Glomerular Filtration Rate > 60, Glucose Level 137H, Calcium Level 9.7 Height (Feet): 5 Height (Inches): 7.00 Weight (Pounds): 125 General Appearance: lethargic EENT: normal ENT inspection Neck: normal alignment Cardiovascular: normal peripheral pulses, normal rate, regular rhythm Respiratory/Chest: chest wall non-tender, lungs clear, normal breath sounds Abdomen: normal bowel sounds, non tender, soft Extremities: normal inspection Edema: no edema noted Arm (L), no edema noted Arm (R), no edema noted Leg (L), no edema noted Leg (R), no edema noted Pedal (L), no edema noted Pedal (R), no edema noted Generalized Neurologic: motor weakness Skin: normal pigmentation, warm/dry Tone Dietz DO Mar 23, 2020 09:34
[2020-03-23] MEDS: Metoprolol Tartrate 12.5mg TAB GT SCH (09:41)
[2020-03-23] MEDS: levETIRAcetam 500mg/5ml Liquid GT SCH (09:41)
[2020-03-23] MEDS: Memantine 10mg tab GT SCH ×2 (09:41→18:00)
[2020-03-23] MEDS: Docusate 100mg/10ml Liq GT SCH ×2 (09:41→17:57)
[2020-03-23] MEDS: sitaGLIPtin 50mg tab GT SCH (09:41)
[2020-03-23] MEDS: Tamsulosin 0.4mg cap ORAL SCH (09:41)
[2020-03-23] MEDS: Lisinopril 10mg tab GT SCH (09:42)
[2020-03-23] MEDS: Pantoprazole Inj IVP SCH (09:42)
[2020-03-23] MEDS: Heparin 5000 units/ml inj SUBQ SCH (09:43)
--- NOTE | 2020-03-23 10:45 | Progress Note ---
DATE: 03/23/2020 SUBJECTIVE: This is a 69-year-old male patient status post head injury. This is a male patient who is very confused and disorganized. He has got a lot of mood lability. He has got no logical plan for his own self-care. He is very depressed and confused. His mood labile. He has got feelings of helplessness, hopelessness, low energy, poor appetite, and loss of interest in activity. He has medical problems such as COPD, hypertension, anemia, cellulitis, diabetes, and BPH. MENTAL STATUS EXAMINATION: This is a 69-year-old male. Appearance is disheveled. Attitude, irritable and agitated. Affect, guarded and restricted. Intellect, poor. Mood, depressed and anxious. Motor activity, psychomotor agitation. Attention span is poor. Orientation x2. Speech is pressured. Thought process, disorganized and illogical. Insight and judgment is poor. DIAGNOSIS: Major depressive disorder, mild, recurrent with psychotic features; rule out dementia with psychosis. PLAN: Treat this patient with medication regimen of Ativan 1 mg every six hours p.r.n. anxiety and agitation, Namenda 5 mg per G-tube twice a day. Twenty minutes of insight-oriented psychotherapy to help this patient understand physical and psychiatric condition so that he has better impulse control, reduced depression, and anxiety. Chart reviewed. Discussed with staff. Seen and assessed at bedside. Letty Mcgowan M.D. DR: YOLANDA JOB#: [id number] CC:
[2020-03-23 12:00] VITALS: BP 122/72
[2020-03-23 16:00] VITALS: BP 90/52
[2020-03-23] MEDS ORDERED: NAMENDA5 MG ORAL (16:50)
--- NOTE | 2020-03-25 16:04 | Discharge Summary ---
Discharge Summary Discharge Summary _ DATE OF ADMISSION: 03/21/2020 DATE OF DISCHARGE: 03/23/2020 DISCHARGED BY: Dr. Tone Dietz CONSULTANTS: Dr. Letty Garcia BRIEF HOSPITAL COURSE: Patient is a 69-year-old male from [facility], presented to ED due to fall and head injury. Patient fell at the nursing home facility. There was no loss of consciousness. Patient is on Heparin. Patient was nonverbal at baseline. He has medical history of diabetes, hypertension, COPD, anemia and malnutrition. Upon evaluation at ED, vital signs were stable. Blood work did not show any leukocytosis. Hemoglobin 10, hematocrit 31. Electrolytes were normal. BUN 61. Creatinine 1.2. Coags normal. CT of the brain was unremarkable. Patient was reported to be on Heparin. There was concern for delayed intracranial bleeding. Patient was then admitted. Patient was admitted to medical floor. He was continued on heparin subcutaneous for DVT prophylaxis. He was seen by support manager for evaluation of anemia. E function and iron was not indicated. Patient did not need blood transfusion. He was also noted to have calcium of 10.3, possibly due to dehydration. He was given IV fluids. He underwent psychiatric evaluation. Patient appeared to be more confused and disorganized. He presented with significant decline in cognition below his baseline. He was diagnosed with major depressive disorder. He was restarted on Namenda 5 mg twice daily and Ativan as needed for anxiety and agitation. He underwent physical therapy evaluation. Patient is baseline dependent in all basic ADLs and functional mobility. He was eventually discharged back to prior half-way. FINAL DIAGNOSES: Encephalopathy status post fall COPD Anemia of chronic disease Diabetes Hypertension Malnutrition Major depressive disorder, mild, recurrent with psychotic features Hypercalcemia due to dehydration DISPOSITION: DC to SNF DISCHARGE MEDICATIONS: Refer to Discharge Medication List. I have been assigned to complete a discharge summary on this account, I was not involved with the patient's management.--CODY Banks Jacqueline Robles NP Mar 25, 2020 16:04
== END 2020-03-23 20:30 | DRG 914 ==
LOC: EDBD 20:06 → EMR 20:45 → 4E 21:36 → EDBEDREQ 23:05
DX: S09.90XA Unspecified injury of head, initial encounter (principal); G93.40 Encephalopathy, unspecified; E46 Unspecified protein-calorie malnutrition; F33.0 Major depressive disorder, recurrent, mild; W19.XXXA Unspecified fall, initial encounter; Y92.129 Unspecified place in nursing home as the place of occurrence of the external cause; J44.9 Chronic obstructive pulmonary disease, unspecified; I10 Essential (primary) hypertension; N40.0 Benign prostatic hyperplasia without lower urinary tract symptoms; E11.9 Type 2 diabetes mellitus without complications; Z03.818 Encounter for observation for suspected exposure to other biological agents ruled out; E83.52 Hypercalcemia; D63.8 Anemia in other chronic diseases classified elsewhere; E86.0 Dehydration; Z79.84 Long term (current) use of oral hypoglycemic drugs; Z79.82 Long term (current) use of aspirin
CPT/HCPCS: 36415; 70450; 80048; 80053; 82607; 82728; 82746; 83540; 83550; 83615; 84443; 84550; 85025; 85044; 85610; 85730; 86850; 86900; 86901; 87081; 99285